=== PATIENT | male | born 1970 | race Two or more races ===

== ENCOUNTER 2020-03-06 07:00 | Day surgery (SDC) | payer MEDICAID, OTHER ==
[~2020-03-06 07:00] MED LIST: Acetaminophen 1,000 MG in Premix Bag 1 BAG IV ONE; Lactated Ringers 1,000 ML IV SCH; Pregabalin 75 MG Cap PO ONE; Sodium Chloride 0.9% 1,000 ML IV SCH; ceFAZolin 2 GM in Premix Bag 1 BAG IV ONE
[2020-03-06] MEDS ORDERED: Propofol 200 MG/20 ML SDV ONE ×2 (07:20→09:02)
[2020-03-06] MEDS ORDERED: fentaNYL 100 MCG/2 ML SDV ONE ×2 (07:20→07:26)
[2020-03-06] MEDS ORDERED: Ondansetron 4 MG/2 ML SDV ONE (07:20)
[2020-03-06] MEDS ORDERED: Midazolam 1 MG/ML 2 ML SDV ONE (07:20)
[2020-03-06] MEDS ORDERED: Succinylcholine/Sod PF 100 MG/5 ML SYRINGE IV ONE (07:22)
[2020-03-06] MEDS ORDERED: Ketorolac 30 MG/ML SDV ONE (07:22)
[2020-03-06] MEDS ORDERED: Glycopyrrolate 0.2 MG/ML SDV ONE (07:22)
[2020-03-06] MEDS ORDERED: Dexamethasone 4 MG/ML 5 ML MDV ONE (07:22)
[2020-03-06] MEDS ORDERED: Bupivacaine 25%/EPINEPHrine/PF 30 ML ONE (07:24)
[2020-03-06] MEDS ORDERED: Octyl 2-Cyanoacrylate 1 Tube ONE (07:24)
--- NOTE | 2020-03-06 07:41 | PCM.PREANE ---
Preanesthetic Assessment - Anesthesia/Transfusion/Family Hx Anesthesia History: Prior Anesthesia Without Reaction Family History of Anesthesia Reaction: No Transfusion History: No Prior Transfusion(s) - Review of Systems General: No Symptoms Pulmonary: No Symptoms Cardiovascular: No Symptoms Gastrointestinal: No Symptoms Neurological: No Symptoms Other: Reports: None - Physical Assessment NPO Status Date: 03/05/20 Height: 5 ft 7 in Weight: 128.82 kg ASA Class: 3 Mental Status: Alert & Oriented x3 Dentition: Reports: Missing Tooth/Teeth ROM/Head Extension: Full Lungs: Clear to Auscultation, Normal Respiratory Effort Cardiovascular: Regular Rate, Regular Rhythm - Allergies Allergies/Adverse Reactions: Allergies Allergy/AdvReac Type Severity Reaction Status Date / Time No Known Allergies Allergy Verified 03/03/20 08:21 - Blood Blood Available: No - Anesthesia Plan Pre-Op Medication Ordered: None - Acknowledgements Anesthesia Type Planned: General Anesthesia Pt an Appropriate Candidate for the Planned Anesthesia: Yes Alternatives and Risks of Anesthesia Discussed w Pt/Guardian: Yes Pt/Guardian Understands and Agrees with Anesthesia Plan: Yes Additional Comments: PMH: MO, dm2- [id number], moy- uses cpap, gerd PLAN: ga/lma PreAnesthesia Questionnaire HEENT History: Reports: Other (See Below) Other HEENT History: wears glasses Cardiovascular History: Reports: High Cholesterol, Hypertension Respiratory History: Reports: Sleep Apnea Other Respiratory History: uses CPAP Gastrointestinal History: Reports: GERD Genitourinary History: Reports: None Musculoskeletal History: Reports: Fracture Other Musculoskeletal History: hx fx arm Neurological History: Reports: None Psychiatric History: Reports: None Endocrine/Metabolic History: Reports: Diabetes, Type II, Obesity/BMI 30+ Hematologic History: Reports: None Immunologic History: Reports: None Oncologic (Cancer) History: Reports: None Dermatologic History: Reports: None - Past Surgical History Head Surgeries/Procedures: Reports: None HEENT Surgical History: Reports: Tonsillectomy Cardiovascular Surgical History: Reports: None Respiratory Surgical History: Reports: None GI Surgical History: Reports: None Male Surgical History: Reports: None Endocrine Surgical History: Reports: None Neurological Surgical History: Reports: None Musculoskeletal Surgical History: Reports: Knee Replacement, Other (See Below) Other Musculoskeletal Surgeries/Procedures:: hx left knee arthroplasty, left knee manipulation & tendon repair right leg Oncologic Surgical History: Reports: None Dermatological Surgical History: Reports: None - SUBSTANCE USE Tobacco Use Status *Q: Current Some Day Tobacco User Tobacco Use Within Last Twelve Months: Cigarettes - HOME MEDS Home Medications: Home Meds Exenatide Microspheres [Bydureon Pen] 2 mg SUBCUT WEEKLY 03/03/20 [History] Insulin Glargine,Hum.Rec.Anlog [Evan Escuderoostar] 1 injection SUBCUT BIDMEALS 03/03/20 [History] Lansoprazole 15 mg PO BID 03/03/20 [History] Metoprolol Tartrate 25 mg PO BID 03/03/20 [History] Olmesartan Medoxomil 40 mg PO DAILY 03/03/20 [History] Pravastatin Sodium 80 mg PO DAILY 03/03/20 [History] amLODIPine Besylate [Amlodipine Besylate] 10 mg PO DAILY 03/03/20 [History] hydroCHLOROthiazide [Hydrochlorothiazide] 50 mg PO DAILY 03/03/20 [History] metFORMIN HCl [Metformin HCl] 1,000 mg PO BID 03/03/20 [History] - CURRENT (IN HOUSE) MEDS Current Meds: Current Medications Sodium Chloride (Normal Saline) 1,000 mls @ 125 mls/hr IV ASDIRECTED MANOJ Lactated Ringer's (Ringers, Lactated) 1,000 mls @ 125 mls/hr IV ASDIRECTED MANOJ Discontinued Medications Dexamethasone (Dexamethasone) Confirm Administered Dose 20 mg .ROUTE .STK-MED ONE Stop: 03/06/20 07:23 Fentanyl (Sublimaze) Confirm Administered Dose 200 mcg .ROUTE .STK-MED ONE Stop: 03/06/20 07:21 Fentanyl (Sublimaze) Confirm Administered Dose 100 mcg .ROUTE .STK-MED ONE Stop: 03/06/20 07:27 Glycopyrrolate (Robinul) Confirm Administered Dose 0.2 mg .ROUTE .STK-MED ONE Stop: 03/06/20 07:23 Cefazolin Sodium/Dextrose 2 gm (/ Premix) 50 mls @ 100 mls/hr IV ONETIME ONE Stop: 03/05/20 13:21 Acetaminophen 1,000 mg/ Premix 100 mls @ 400 mls/hr IV NOW ONE Stop: 03/06/20 07:14 Bupivacaine HCl/Epinephrine Bitart (Sensorc Mpf 0.25%-Epi [id number]) Confirm Administered Dose 30 mls @ as directed .ROUTE .STK-MED ONE Stop: 03/06/20 07:25 Ketorolac Tromethamine (Toradol) Confirm Administered Dose 30 mg .ROUTE .STK-MED ONE Stop: 03/06/20 07:23 Midazolam HCl (Versed 1 Mg/Ml) Confirm Administered Dose 2 mg .ROUTE .STK-MED ONE Stop: 03/06/20 07:21 Octyl Cyanoacrylate (Dermabond Advance) Confirm Administered Dose 1 applic .ROUTE .STK-MED ONE Stop: 03/06/20 07:25 Ondansetron HCl (Zofran) Confirm Administered Dose 4 mg .ROUTE .STK-MED ONE Stop: 03/06/20 07:21 Pregabalin (Lyrica) 150 mg PO DAILY ONE Stop: 03/06/20 07:01 Propofol (Diprivan 20 Ml) Confirm Administered Dose 400 mg .ROUTE .STK-MED ONE Stop: 03/06/20 07:21
[2020-03-06] MEDS ORDERED: Sodium Chloride 0.9% 20 ML ONE (08:40)
[2020-03-06] MEDS ORDERED: ceFAZolin 1 GM Vial ONE (08:40)
[2020-03-06] MEDS ORDERED: HYDROmorphone 2 MG/ML Syringe ONE (09:05)
[2020-03-06] MEDS ORDERED: HYDROmorphone 2 MG/ML Syringe IVPUSH ONE (10:00)
--- NOTE | 2020-03-06 10:09 | PCM.OPNOTE ---
- General Post-Op/Procedure Note Date of Surgery/Procedure: 03/06/20 Operative Procedure(s): Umbilical hernia repair Findings: umbilical hernia dictation number [id number] Pre Op Diagnosis: Umbilical hernia Post-Op Diagnosis: Umbilical hernia Primary Surgeon: Jarrod Mosley Pathology: Hernia sac EBL in mLs: 5 Complications: None Condition: Good
--- NOTE | 2020-03-06 11:16 | PCM.POSTAN ---
POST ANESTHESIA ASSESSMENT - MENTAL STATUS Mental Status: Alert, Oriented - VITAL SIGNS Vital Signs: Last Vital Signs Temp 96.8 F L 03/06/20 10:23 Pulse 83 03/06/20 10:44 Resp 15 03/06/20 10:44 BP 102/43 L 03/06/20 10:44 Pulse Ox 94 L 03/06/20 10:44 - RESPIRATORY Respiratory Status: Respiratory Rate WNL, Airway Patent, O2 Saturation Stable - CARDIOVASCULAR CV Status: Pulse Rate WNL, Blood Pressure Stable - GASTROINTESTINAL GI Status: No Symptoms - POST OP HYDRATION Hydration Status: Adequate & Stable
--- NOTE | 2020-03-06 11:16 | PCM48HPAN ---
Post Anesthesia Note - EVALUATION WITHIN 48HRS OF ANESTHETIC Vital Signs in Normal Range: Yes Patient Participated in Evaluation: Yes Respiratory Function Stable: Yes Airway Patent: Yes Cardiovascular Function Stable: Yes Hydration Status Stable: Yes Pain Control Satisfactory: Yes Nausea and Vomiting Control Satisfactory: Yes Mental Status Recovered: Yes Vital Signs: Last Vital Signs Temp 96.8 F L 03/06/20 10:23 Pulse 83 03/06/20 10:44 Resp 15 03/06/20 10:44 BP 102/43 L 03/06/20 10:44 Pulse Ox 94 L 03/06/20 10:44
--- NOTE | 2020-03-06 14:01 | OR ---
SURGEON: SADIQ SHEETS MD DATE OF PROCEDURE: 03/06/2020 PREOPERATIVE DIAGNOSIS: Umbilical hernia. POSTOPERATIVE DIAGNOSIS: Umbilical hernia. PROCEDURE PERFORMED: Open umbilical hernia repair of a reducible hernia. FINDINGS: Umbilical hernia. SPECIMEN: Hernia sac. PRIMARY SURGEON: Sadiq Sheets MD ANESTHESIA: General. ESTIMATED BLOOD LOSS: 5 mL. COMPLICATIONS: None. REASON FOR PROCEDURE: The patient is a pleasant 50-year-old gentleman who has had an umbilical hernia for quite some time, which started to bother him over the last couple of months. He denies ever being stuck. He has always been able to reduce it. I did go over the risks, goals, and alternatives of repair. Risks include, but not limited to, bleeding, infection, injury to underlying structures, mesh infection, chronic pain, scar formation. Also went over that we may or may not take his umbilicus, seroma formation, hematoma formation. The patient understands, wished to proceed. OPERATIVE NARRATIVE: The patient was brought back to the OR. He was prepped and draped in usual sterile fashion. SCDs placed. Preoperative antibiotics were given and anesthesia was provided by the Anesthesia team. Time-out was performed. A curvilinear infraumbilical incision was made. It was made down to the fascia. The hernia sac was then dissected away. Now, the hernia sac was dissected off the umbilical stalk. The hernia sac was then entered, it appeared just to be fat. This was easily reduced back into the abdomen. Now, the hernia sac was resected off where it met with the fascia. His actual defect was small, only about 1.5 to 2 cm in size. The area was inspected. There was good hemostasis. Now, a medium-sized Bard Ventralex ST mesh was placed. It laid nicely underneath the fascia. Now, it was secured in place with 0 Prolene sutures in a U-stitch fashion. The fascia was then closed with two [id number] stitches with 0 prolene. Again, good hemostasis. Now, the fascia and subcutaneous tissue were injected with local. The umbilical stalk was brought back. The umbilical skin actually appeared fairly viable, so the umbilical stalk was then attached to the fascia with 3-0 PDS. The incision was closed with a layer of 3-0 Vicryl and then the skin was closed with 4-0 Monocryl and Dermabond. At the end of the case, sponge and needle counts were correct, and the patient was transferred to recovery room in stable condition. GAL REID /[id number]
== END 2020-03-06 12:00 | disposition home or self-care (01) ==
LOC: MW.SDS 07:00
PROVIDERS: ATTEND Surgery
DX: K42.9 Umbilical hernia without obstruction or gangrene (principal); E11.9 Type 2 diabetes mellitus without complications; I10 Essential (primary) hypertension; G47.33 Obstructive sleep apnea (adult) (pediatric); K21.9 Gastro-esophageal reflux disease without esophagitis; E78.00 Pure hypercholesterolemia, unspecified; E66.9 Obesity, unspecified; F17.210 Nicotine dependence, cigarettes, uncomplicated; Z79.899 Other long term (current) drug therapy; Z98.890 Other specified postprocedural states; Z79.4 Long term (current) use of insulin; Z68.41 Body mass index [BMI] 40.0-44.9, adult
CPT/HCPCS: 82962; A9270-GY; J0131; J0330; J0690; J1100; J1170; J1885; J2250; J2405; J2704; J3010; J3490; J7120

== ENCOUNTER 2020-05-01 08:00 | Day surgery (SDC) | payer MEDICAID ==
[~2020-05-01 08:00] MED LIST changes: -Acetaminophen 1,000 MG in Premix Bag 1 BAG IV ONE; +Glycopyrrolate 0.2 MG/ML SDV ONE; +Lidocaine 2% 5 ML SDV ONE; +Midazolam 1 MG/ML 2 ML SDV ONE; -Pregabalin 75 MG Cap PO ONE; +Propofol 200 MG/20 ML SDV ONE; -Sodium Chloride 0.9% 1,000 ML IV SCH; -ceFAZolin 2 GM in Premix Bag 1 BAG IV ONE
--- NOTE | 2020-05-01 08:50 | PCM.PREANE ---
Preanesthetic Assessment - Anesthesia/Transfusion/Family Hx Anesthesia History: Prior Anesthesia Without Reaction Family History of Anesthesia Reaction: No Transfusion History: No Prior Transfusion(s) Intubation History: Unknown - Review of Systems General: No Symptoms Pulmonary: No Symptoms Cardiovascular: No Symptoms Gastrointestinal: Hematochezia, Other (chronic acid reflux) Neurological: No Symptoms Other: Reports: None - Physical Assessment Vital Signs: Last Vital Signs Temp 35.7 C L 05/01/20 08:23 Pulse 86 05/01/20 08:23 Resp 16 05/01/20 08:23 BP 112/59 L 05/01/20 08:23 Pulse Ox 95 05/01/20 08:23 Height: 5 ft 7 in Weight: 120.202 kg ASA Class: 3 Mental Status: Alert & Oriented x3 Airway Class: Mallampati = 3 Dentition: Reports: Normal Dentition, Bridge (1 tooth flipper up front (removed)) Thyro-Mental Finger Breadths: 3 Mouth Opening Finger Breadths: 3 ROM/Head Extension: Full Lungs: Clear to Auscultation, Normal Respiratory Effort Cardiovascular: Regular Rate, Regular Rhythm - Allergies Allergies/Adverse Reactions: Allergies Allergy/AdvReac Type Severity Reaction Status Date / Time No Known Allergies Allergy Verified 04/25/20 14:17 - Blood Blood Available: No - Anesthesia Plan Pre-Op Medication Ordered: None - Acknowledgements Anesthesia Type Planned: MAC Pt an Appropriate Candidate for the Planned Anesthesia: Yes Alternatives and Risks of Anesthesia Discussed w Pt/Guardian: Yes Pt/Guardian Understands and Agrees with Anesthesia Plan: Yes PreAnesthesia Questionnaire HEENT History: Reports: Other (See Below) Other HEENT History: wears glasses Cardiovascular History: Reports: High Cholesterol, Hypertension Respiratory History: Reports: Sleep Apnea Other Respiratory History: uses CPAP Gastrointestinal History: Reports: GERD Genitourinary History: Reports: None Musculoskeletal History: Reports: Fracture, Osteoarthritis Other Musculoskeletal History: hx fx arm Neurological History: Reports: None Psychiatric History: Reports: None Endocrine/Metabolic History: Reports: Diabetes, Type II, IDDM, Obesity/BMI 30+ (BMI 41.5) Hematologic History: Reports: None Immunologic History: Reports: None Oncologic (Cancer) History: Reports: None Dermatologic History: Reports: None - Past Surgical History Head Surgeries/Procedures: Reports: None HEENT Surgical History: Reports: Tonsillectomy Cardiovascular Surgical History: Reports: None Respiratory Surgical History: Reports: None GI Surgical History: Reports: Hernia, Abdominal (umbilical 2 months ago here) Other GI Surgeries/Procedures: Umbilical hernia repair Male Surgical History: Reports: None Endocrine Surgical History: Reports: None Neurological Surgical History: Reports: None Musculoskeletal Surgical History: Reports: Knee Replacement, Other (See Below) Other Musculoskeletal Surgeries/Procedures:: hx left knee arthroplasty 04/19, left knee manipulation & tendon repair right leg Oncologic Surgical History: Reports: None Dermatological Surgical History: Reports: None - SUBSTANCE USE Tobacco Use Status *Q: Never Tobacco User Recreational Drug Use History: No - HOME MEDS Home Medications: Home Meds Exenatide Microspheres [Bydureon Pen] 2 mg SUBCUT WEEKLY 03/03/20 [History] Lansoprazole 15 mg PO QAM 03/03/20 [History] Metoprolol Tartrate 25 mg PO BID 03/03/20 [History] Olmesartan Medoxomil 40 mg PO QAM 03/03/20 [History] Pravastatin Sodium 80 mg PO DAILY 03/03/20 [History] amLODIPine Besylate [Amlodipine Besylate] 10 mg PO QAM 03/03/20 [History] hydroCHLOROthiazide [Hydrochlorothiazide] 50 mg PO DAILY 03/03/20 [History] metFORMIN HCl [Metformin HCl] 500 mg PO BID 03/03/20 [History] Insulin Glargine,Hum.Rec.Anlog [Lantus Solostar] 0 unit SQ BID 04/25/20 [History] - CURRENT (IN HOUSE) MEDS Current Meds: Current Medications Lactated Ringer's (Ringers, Lactated) 1,000 mls @ 125 mls/hr IV ASDIRECTED [facility] Last Admin: 05/01/20 08:31 Dose: 125 mls/hr Documented by: Discontinued Medications Glycopyrrolate (Robinul) Confirm Administered Dose 0.2 mg .ROUTE .STK-MED ONE Stop: 05/01/20 07:25 Lidocaine (Xylocaine-Mpf 2%) Confirm Administered Dose 5 ml .ROUTE .STK-MED ONE Stop: 05/01/20 07:25 Midazolam HCl (Versed 1 Mg/Ml) Confirm Administered Dose 2 mg .ROUTE .STK-MED ONE Stop: 05/01/20 07:25 Propofol (Diprivan 20 Ml) Confirm Administered Dose 600 mg .ROUTE .STK-MED ONE Stop: 05/01/20 07:25
[2020-05-01] MEDS ORDERED: Propofol 200 MG/20 ML SDV ONE (10:02)
--- NOTE | 2020-05-01 10:28 | PCM.OPNOTE ---
- General Post-Op/Procedure Note Date of Surgery/Procedure: 05/01/20 Operative Procedure(s): EGD with biopsies. Colonoscopy with biopsies Findings: Normal appearing EGD and colonoscopy Diverticulosis dictation number [id number] Pre Op Diagnosis: History of colitis of CT. GERD Post-Op Diagnosis: Normal appearing colon and EGD Primary Surgeon: Jarrod Mosley Pathology: random biopsies of the colon biopsies from the EGD. Complications: None Condition: Good
--- NOTE | 2020-05-01 10:48 | PCM.POSTAN ---
POST ANESTHESIA ASSESSMENT - MENTAL STATUS Mental Status: Alert, Oriented - VITAL SIGNS Vital Signs: Last Vital Signs Temp 35.7 C L 05/01/20 08:23 Pulse 83 05/01/20 10:42 Resp 16 05/01/20 10:42 BP 97/58 L 05/01/20 10:42 Pulse Ox 95 05/01/20 10:42 - RESPIRATORY Respiratory Status: Respiratory Rate WNL, Airway Patent, O2 Saturation Stable - CARDIOVASCULAR CV Status: Pulse Rate WNL, Blood Pressure Stable - GASTROINTESTINAL GI Status: No Symptoms - PAIN Pain Score: 0 - POST OP HYDRATION Hydration Status: Adequate & Stable - OBSERVATIONS Free Text/Narrative:: No anesthesia problems
--- NOTE | 2020-05-01 10:59 | PCM48HPAN ---
Post Anesthesia Note - EVALUATION WITHIN 48HRS OF ANESTHETIC Vital Signs in Normal Range: Yes Patient Participated in Evaluation: Yes Respiratory Function Stable: Yes Airway Patent: Yes Cardiovascular Function Stable: Yes Hydration Status Stable: Yes Pain Control Satisfactory: Yes Nausea and Vomiting Control Satisfactory: Yes Mental Status Recovered: Yes Vital Signs: Last Vital Signs Temp 36.3 C 05/01/20 10:47 Pulse 80 05/01/20 10:47 Resp 14 05/01/20 10:47 BP 107/60 05/01/20 10:47 Pulse Ox 95 05/01/20 10:47 - COMMENTS/OBSERVATIONS Free Text/Narrative:: No anesthesia problems
--- NOTE | 2020-05-01 14:09 | OR ---
SURGEON: SADIQ SHEETS MD DATE OF PROCEDURE: 05/01/2020 PREOPERATIVE DIAGNOSES: 1. Screening colonoscopy, but he does have history of colitis and gastritis on a CT scan several months ago. 2. Gastroesophageal reflux disease. POSTOPERATIVE DIAGNOSIS: Normal-appearing colon and esophagogastroduodenoscopy. PRIMARY SURGEON: Sadiq Sheets MD ANESTHESIA: General anesthesia. EXTENT OF COLONOSCOPY: To the cecum. WITHDRAWAL TIME: 9 minutes. LIMITATIONS: None. BOWEL PREP: Very good. PROCEDURES PERFORMED: 1. Esophagogastroduodenoscopy with biopsies. 2. Colonoscopy with random biopsies. REASON FOR PROCEDURE: The patient is a pleasant 50-year-old gentleman who has never had a colonoscopy before. He does have a family history of colon cancer. Several months ago in [place], he had a CT scan that showed some colitis and gastritis. The patient also has a history of GERD, which he says is well controlled with medication. He denies any swallowing issues. PROCEDURE IN DETAIL: Physical exam was performed. The major risks and benefits associated with the procedure were explained to the patient in detail. The patient verbalized understanding and agreement of the same. The patient was then connected to appropriate monitoring device and IV was started. EKG, pulse, pulse oximetry, blood pressure, and capnography were monitored throughout the procedure. Continuous oxygen and sedation were provided by the anesthesiologist. Sedation was began, and after adequate sedation was achieved, an upper endoscope was advanced under direct visualization without any difficulty in the upper GI tract. The anatomy and mucosa of the esophagus, GE junction, stomach, and at least the second part of the duodenum were all inspected. Duodenum appeared normal. Stomach also appeared normal with both retro and antegrade views. I did do biopsies of the antrum and pylorus to check for H pylori. Scope was brought to the GE junction. GE junction was approximately 37 cm from incisor. Squamocolumnar junction line appeared intact. Scope was brought into the stomach and stomach was desufflated. Scope was brought into the esophagus. Esophagus also appeared normal. The scope was removed and this part of the procedure was terminated. Gloves and scopes were changed. The patient was rotated to left lateral decubitus position. Now, a digital rectal exam was performed. No rectal masses or polyps were felt. Now, a well- lubricated Olympus colonoscope was entered in the rectum and advanced under direct visualization to the level of the cecum. Cecum was identified by both visual and anatomic landmarks. Photographs were taken of the cecal cap. Scope was then slowly withdrawn in somewhat circular fashion looking at the color, texture, anatomy, and integrity of the mucosa from the cecum to the anal canal. The patient did have liquid stool, which was suctioned and irrigated out for great look at the mucosa. The patient did have some scant diverticulosis through his sigmoid colon. Because of his history of colitis seen on CT scan several months ago, did do random biopsies through the colon. The scope was retroflexed in the rectum. Scope was completely removed and the procedure was terminated. ENDOSCOPIC DIAGNOSIS: Normal-appearing esophagogastroduodenoscopy and colon with some diverticulosis. RECOMMENDATIONS: Followup colonoscopy will depend on pathology, but most likely will need another colonoscopy in 10 years, sooner if he develops signs or symptoms such as change in bowel habits or blood in his stool. He can follow up in the clinic to go over his pathology on his EGD. GAL / FRANKLIN /[id number]
== END 2020-05-01 11:03 | disposition home or self-care (01) ==
LOC: MW.SDS 08:00
PROVIDERS: ATTEND Surgery
DX: Z12.11 Encounter for screening for malignant neoplasm of colon (principal); K21.9 Gastro-esophageal reflux disease without esophagitis; E11.9 Type 2 diabetes mellitus without complications; I10 Essential (primary) hypertension; E78.00 Pure hypercholesterolemia, unspecified; E66.01 Morbid (severe) obesity due to excess calories; G47.30 Sleep apnea, unspecified; Z79.899 Other long term (current) drug therapy; Z79.84 Long term (current) use of oral hypoglycemic drugs; Z98.890 Other specified postprocedural states; Z68.41 Body mass index [BMI] 40.0-44.9, adult; Z80.0 Family history of malignant neoplasm of digestive organs; Z87.19 Personal history of other diseases of the digestive system
CPT/HCPCS: 43239; 45380; 82962; J2250; J2704; J3490; J7120; 00813; 88305; 88312

== ENCOUNTER 2020-05-01 17:53 | Inpatient (IN) | payer MEDICAID ==
[2020-05-01] MEDS ORDERED: Sodium Chloride 0.9% 1,000 ML IV ONE ×2 (18:32→19:17)
[2020-05-01] MEDS ORDERED: Ondansetron 4 MG/2 ML SDV IVPUSH ONE (18:36)
--- NOTE | 2020-05-01 18:47 | PCM.EKG ---
#1 Interpretation EKG Interpretation Comments: Heart rate = 126 bpm, sinus tachycardia, normal QRS interval, no STEMI. EKG and rhythm strip interpreted by me at 1821
[2020-05-01 19:05] LABS: BLOOD UREA NITROGEN,BUN 13 mg/dL (7.0-18.0); CARBON DIOXIDE,CO2 24.5 mmol/L (21.0-32.0); CHLORIDE,CL 99 mmol/L (98-107); GLUCOSE RANDOM 200 mg/dL (74-106); LIPASE 65 U/L (73-393); POTASSIUM,K 3.7 mmol/L (3.5-5.1); SODIUM,NA 137 mmol/L (136-148)
--- NOTE | 2020-05-01 19:12 | CR ---
INDICATION: tachycardia. 1 image sent prior 28-apr-2020 TECHNIQUE: Chest 1 view. COMPARISON: 04/28/20 FINDINGS: Cardiovascular and mediastinum: Heart size and vasculature are normal in caliber and appearance. Mediastinum is within normal limits. Lungs and pleural space: Lungs are clear. No sign of infiltrate or mass. No sign of pleural effusion. No pneumothorax. Bones and soft tissues: No significant findings. IMPRESSION: Unremarkable chest. Dictated by: Sd Pastor MD @ 05/01/2020 19:11:37 (Electronically Signed)
[2020-05-01] MEDS ORDERED: Piperacillin/Tazobactam 3.375 GM in Sodium Chloride 0.9% 50 ML IV ONE (19:17)
[2020-05-01] MEDS ORDERED: Vancomycin 1.5 GM in Sodium Chloride 0.9% 500 ML IV STA (19:19)
[2020-05-01] MEDS ORDERED: Piperacillin/Tazobactam 4.5 GM in Sodium Chloride 0.9% 100 ML IV ONE (19:20)
[2020-05-01 20:04] LABS: CORONAVIRUS COVID-19 NAA NEGATIVE (NEGATIVE); INFLUENZA A NAA NEGATIVE (NEGATIVE); INFLUENZA B NAA NEGATIVE (NEGATIVE)
[2020-05-01] MEDS ORDERED: VANCOmycin 1.5 GM/300 ML 300 ML IV STA (20:10)
[2020-05-01] MEDS ORDERED: Iopamidol 755 MG/ML 500 ML Multipack Bottle IVPUSH STA (20:18)
--- NOTE | 2020-05-01 20:43 | CT ---
INDICATION: Tachycardia, vomiting, fever after colonoscopy and EGD TECHNIQUE: CT abdomen and pelvis acquired with 100 cc Isovue 370 IV contrast. COMPARISON: None FINDINGS: Lower chest: Patchy airspace disease in the left lower lobe. Small hiatal hernia. No pneumomediastinum. Liver: Unremarkable. Spleen: Unremarkable. Pancreas: Unremarkable. Gallbladder and bile ducts: Cholelithiasis. Adrenal glands: 1.4 cm mass on the left adrenal gland measuring -80 Hounsfield units in density, consistent with a benign adrenal myelolipoma. Kidneys: 2 mm nonobstructive left renal stone. GI tract: No free air or free fluid. No pericolonic fat stranding. Colonic diverticulosis. Vascular structures: Unremarkable. Lymph nodes: Unremarkable. Miscellaneous: Status post umbilical herniorrhaphy with mesh placement. No free air or significant free fluid. Pelvic Organs: Unremarkable. Bones: Unremarkable for age. IMPRESSION: No evidence for acute esophageal, stomach or bowel abnormality. Left lower lobe pneumonia. Cholelithiasis. Colonic diverticulosis. Nonobstructive left renal stone. Status post umbilical herniorrhaphy with mesh placement. Please note that all CT scans at this facility use dose modulation, iterative reconstruction, and/or weight-based dosing when appropriate to reduce radiation dose to as low as reasonably achievable. Dictated by Aracelis Don MD @ May 01 2020 8:41PM Signed by Dr. Aracelis Don @ May 01 2020 8:41PM
[2020-05-01] MEDS ORDERED: Sodium Chloride 0.9% 1,000 ML IV SCH (21:00)
--- NOTE | 2020-05-01 21:42 | EDM.PDOC ---
ED HPI GENERAL MEDICAL PROBLEM - General Chief Complaint: General Stated Complaint: CHILLS Time Seen by Provider: 05/01/20 18:32 Source of Information: Reports: Patient History Limitations: Reports: No Limitations - History of Present Illness INITIAL COMMENTS - FREE TEXT/NARRATIVE: HISTORY AND PHYSICAL: History of present illness: Patient is a 50-year-old male who presents emergency room today with concern of chills, feeling feverish, feeling unwell, and a few episodes of vomiting following a colonoscopy and upper endoscopy this morning. Patient states that he had a colonoscopy and an upper endoscopy performed by Dr. Mosley, general surgery, this morning and was discharged from same-day surgery at noon. Patient states that he was excited to go eat as he has been on a colonoscopy cleanse and states that he went and ate. Patient states a few hours after eating, he began feeling nauseous and has had a few episodes of vomiting. Patient states he has began feeling feverish but states he has not checked a temperature at home. Patient states he feels as if he has the chills and states that overall he feels unwell. Patient denies any abdominal pain. Patient denies any other associated symptoms. Patient denies chest pain, shortness of breath, or cough. Denies headache, neck stiff ness, change in vision, syncope, or near syncope. Denies abdominal pain, diarrhea, constipation, or dysuria. Has not noted any blood in urine or stool. Patient has been eating and drinking appropriately to onset of symptoms. Review of systems: As per history of present illness and below otherwise all systems reviewed and negative. Past medical history: As per history of present illness and as reviewed below otherwise noncontributory. Surgical history: As per history of present illness and as reviewed below otherwise noncontributory. Social history: See social history for further information Family history: As per history of present illness and as reviewed below otherwise noncontributory. Physical exam: General: Patient is alert, oriented, and in no acute distress. Patient laying comfortably on exam table. Tachycardic 135 on initial exam, otherwise vitally s table. HEENT: Atraumatic, normocephalic, pupils equal and reactive bilaterally, negative for conjunctival pallor or scleral icterus, mucous membranes moist, TMs normal bilaterally, throat clear, neck supple, nontender, trachea midline. No drooling or trismus noted. No meningeal signs. No hot potato voice noted. Lungs: Clear to auscultation, breath sounds equal bilaterally, chest nontender. Heart: S1S2, regular rate and rhythm without overt murmur Abdomen: Soft, nondistended, nontender. Negative for masses or hepatosplenomegaly. Negative for costovertebral tenderness. Pelvis: Stable nontender. Genitourinary: Deferred. Rectal: Deferred. Skin: Intact, warm, dry. No lesions or rashes noted. Extremities: Atraumatic, negative for cords or calf pain. Neurovascular unremarkable. Neuro: Awake, alert, oriented. Cranial nerves II through XII unremarkable. Cerebellum unremarkable. Motor and sensory unremarkable throughout. Exam nonfocal. Notes: On initial exam, patient is tachycardic 135 on exam. This does appear to be a sinus tachycardia. See Dr. Blanc's dictation for specific EKG interpretation. No STEMI. We will perform routine lab work as well as cardiac lab evaluation. We will get an abdominal pelvic CT scan due to colonoscopy performed this morning, with perforation concerns. After first bolus of 1 L normal saline, patient's heart rate is now 115. On CBC, patient's white count is elevated at 25, along with patient's elevated heart rate, I am concerned for sepsis. Unasyn and vancomycin initiated. After second bolus of an additional 1 L normal saline, patient's heart rate is n ow 105. Patient does have a left lower lobe pneumonia on imaging. I did call and speak to the hospitalist on-call, Dr. Liu, and thoroughly discussed patient's case. Will admit to inpatient on telemetry. Voices understanding and is agreeable to plan of care. Denies any further questions or concerns at this time. Patient remains vitally stable in the ED. Diagnostics: EKG, CBC, CMP, UA, chest x-ray, troponin, Covid/influenza, abdominal pelvic CT scan with contrast, blood cultures, lactate Therapeutics: Saline, Zosyn, vancomycin, Zofran Impression: Community-acquired pneumonia, left lower lobe Sepsis Plan: We will admit inpatient to Dr. Liu on telemetry Definitive disposition and diagnosis as appropriate pending reevaluation and review of above. head Pain Score (Numeric/FACES): 8 - Related Data Allergies Allergy/AdvReac Type Severity Reaction Status Date / Time No Known Allergies Allergy Verified 05/01/20 18:15 Home Meds: Home Meds Exenatide Microspheres [Bydureon Pen] 2 mg SUBCUT WEEKLY 03/03/20 [History] Lansoprazole 15 mg PO QAM 03/03/20 [History] Metoprolol Tartrate 25 mg PO BID 03/03/20 [History] Olmesartan Medoxomil 40 mg PO QAM 03/03/20 [History] Pravastatin Sodium 80 mg PO DAILY 03/03/20 [History] amLODIPine Besylate [Amlodipine Besylate] 10 mg PO QAM 03/03/20 [History] hydroCHLOROthiazide [Hydrochlorothiazide] 50 mg PO DAILY 03/03/20 [History] metFORMIN HCl [Metformin HCl] 500 mg PO BID 03/03/20 [History] Insulin Glargine,Hum.Rec.Anlog [Lantus Solostar] 0 unit SQ BID 04/25/20 [History] Past Medical History HEENT History: Reports: Other (See Below) Other HEENT History: wears glasses Cardiovascular History: Reports: High Cholesterol, Hypertension Respiratory History: Reports: Sleep Apnea Other Respiratory History: uses CPAP Gastrointestinal History: Reports: GERD Genitourinary History: Reports: None Musculoskeletal History: Reports: Fracture, Osteoarthritis Other Musculoskeletal History: hx fx arm Neurological History: Reports: None Psychiatric History: Reports: None Endocrine/Metabolic History: Reports: Diabetes, Type II, IDDM, Obesity/BMI 30+ Hematologic History: Reports: None Immunologic History: Reports: None Oncologic (Cancer) History: Reports: None Dermatologic History: Reports: None - Infectious Disease History Infectious Disease History: Reports: Chicken Pox - Past Surgical History Head Surgeries/Procedures: Reports: None HEENT Surgical History: Reports: Tonsillectomy Cardiovascular Surgical History: Reports: None Respiratory Surgical History: Reports: None GI Surgical History: Reports: Hernia, Abdominal Other GI Surgeries/Procedures: Umbilical hernia repair Male Surgical History: Reports: None Endocrine Surgical History: Reports: None Neurological Surgical History: Reports: None Musculoskeletal Surgical History: Reports: Knee Replacement, Other (See Below) Other Musculoskeletal Surgeries/Procedures:: hx left knee arthroplasty 04/19, left knee manipulation & tendon repair right leg Oncologic Surgical History: Reports: None Dermatological Surgical History: Reports: None ED ROS GENERAL - Review of Systems Review Of Systems: Comprehensive ROS is negative, except as noted in HPI. ED EXAM, GENERAL - Physical Exam Exam: See Below (See dictation) Course - Vital Signs Last Recorded V/S: Last Vital Signs Temp 98.4 F 05/01/20 21:39 Pulse 95 05/01/20 21:39 Resp 16 05/01/20 21:39 BP 94/59 L 05/01/20 21:39 Pulse Ox 99 05/01/20 21:39 - Orders/Labs/Meds Orders: Active Orders 24 hr Category Date Time Status CULTURE BLOOD [BC] Stat Lab 05/01/20 19:49 Received CULTURE BLOOD [BC] Stat Lab 05/01/20 19:54 Received Blood Culture x2 Reflex Set [OM.PC] Stat Oth 05/01/20 19:14 Ordered Medication Orders Sodium Chloride (Normal Saline) 1,000 mls @ 125 mls/hr IV STAT MANOJ Last Admin: 05/01/20 21:36 Dose: 125 mls/hr Documented by: BRAULIO Labs: Laboratory Tests 05/01/20 05/01/20 05/01/20 Range/Units 18:22 18:34 18:34 WBC 25.50 H (4.0-11.0) K/uL RBC 4.60 (4.50-5.90) M/uL Hgb 14.2 (13.0-17.0) g/dL Hct 41.0 (38.0-50.0) % MCV 89.1 (80.0-98.0) fL MCH 30.9 (27.0-32.0) pg MCHC 34.6 (31.0-37.0) g/dL RDW Std Deviation 44.6 (28.0-62.0) fl RDW Coeff of Len 14 (11.0-15.0) % Plt Count 299 (150-400) K/uL MPV 10.70 (7.40-12.00) fL Neut % (Auto) 87.1 H (48.0-80.0) % Lymph % (Auto) 6.6 L (16.0-40.0) % [place] % (Auto) 5.9 (0.0-15.0) % Eos % (Auto) 0.3 (0.0-7.0) % Baso % (Auto) 0.1 (0.0-1.5) % Neut # (Auto) 22.2 H (1.4-5.7) K/uL Lymph # (Auto) 1.7 (0.6-2.4) K/uL [place] # (Auto) 1.5 H (0.0-0.8) K/uL Eos # (Auto) 0.1 (0.0-0.7) K/uL Baso # (Auto) 0.0 (0.0-0.1) K/uL Nucleated RBC % 0.0 /100WBC Nucleated RBCs # 0 K/uL Lactate (0.20-2.00) mmol/L Sodium 137 (136-148) mmol/L Potassium 3.7 (3.5-5.1) mmol/L Chloride 99 (98-107) mmol/L Carbon Dioxide 24.5 (21.0-32.0) mmol/L BUN 13 (7.0-18.0) mg/dL Creatinine 1.3 (0.8-1.3) mg/dL Est Cr Clr Drug Dosing 58.48 mL/min Estimated GFR (MDRD) 58.2 ml/min Glucose 200 H (74-106) mg/dL POC Glucose 179 H (60-110) mg/dL Calcium 9.2 (8.5-10.1) mg/dL Total Bilirubin 0.4 (0.2-1.0) mg/dL AST 20 (15-37) IU/L ALT 51 (14-63) IU/L Alkaline Phosphatase 67 (46-116) U/L Troponin I < 0.050 (0.000-0.056) ng/mL Total Protein 7.9 (6.4-8.2) g/dL Albumin 3.7 (3.4-5.0) g/dL Globulin 4.2 H (2.6-4.0) g/dL Albumin/Globulin Ratio 0.9 (0.9-1.6) Lipase 65 L (73-393) U/L Urine Color Urine Appearance Urine pH (5.0-8.0) Ur Specific [place] (1.001-1.035) Urine Protein (NEGATIVE) mg/dL Urine Glucose (UA) (NEGATIVE) mg/dL Urine Ketones (NEGATIVE) mg/dL Urine Occult Blood (NEGATIVE) Urine Nitrite (NEGATIVE) Urine Bilirubin (NEGATIVE) Urine Urobilinogen (<2.0) EU/dL Ur Leukocyte Esterase (NEGATIVE) Influenza Type A RNA (NEGATIVE) Influenza Type B RNA (NEGATIVE) SARS-CoV-2 RNA ([place]) (NEGATIVE) 05/01/20 05/01/20 05/01/20 Range/Units 19:14 19:54 20:43 WBC (4.0-11.0) K/uL RBC (4.50-5.90) M/uL Hgb (13.0-17.0) g/dL Hct (38.0-50.0) % MCV (80.0-98.0) fL MCH (27.0-32.0) pg MCHC (31.0-37.0) g/dL RDW Std Deviation (28.0-62.0) fl RDW Coeff of Len (11.0-15.0) % Plt Count (150-400) K/uL MPV (7.40-12.00) fL Neut % (Auto) (48.0-80.0) % Lymph % (Auto) (16.0-40.0) % [place] % (Auto) (0.0-15.0) % Eos % (Auto) (0.0-7.0) % Baso % (Auto) (0.0-1.5) % Neut # (Auto) (1.4-5.7) K/uL Lymph # (Auto) (0.6-2.4) K/uL [place] # (Auto) (0.0-0.8) K/uL Eos # (Auto) (0.0-0.7) K/uL Baso # (Auto) (0.0-0.1) K/uL Nucleated RBC % /100WBC Nucleated RBCs # K/uL Lactate 1.7 (0.20-2.00) mmol/L Sodium (136-148) mmol/L Potassium (3.5-5.1) mmol/L Chloride (98-107) mmol/L Carbon Dioxide (21.0-32.0) mmol/L BUN (7.0-18.0) mg/dL Creatinine (0.8-1.3) mg/dL Est Cr Clr Drug Dosing mL/min Estimated GFR (MDRD) ml/min Glucose (74-106) mg/dL POC Glucose (60-110) mg/dL Calcium (8.5-10.1) mg/dL Total Bilirubin (0.2-1.0) mg/dL AST (15-37) IU/L ALT (14-63) IU/L Alkaline Phosphatase (46-116) U/L Troponin I (0.000-0.056) ng/mL Total Protein (6.4-8.2) g/dL Albumin (3.4-5.0) g/dL Globulin (2.6-4.0) g/dL Albumin/Globulin Ratio (0.9-1.6) Lipase (73-393) U/L Urine Color YELLOW Urine Appearance CLEAR Urine pH 5.5 (5.0-8.0) Ur Specific [place] <= 1.005 (1.001-1.035) Urine Protein NEGATIVE (NEGATIVE) mg/dL Urine Glucose (UA) NEGATIVE (NEGATIVE) mg/dL Urine Ketones NEGATIVE (NEGATIVE) mg/dL Urine Occult Blood NEGATIVE (NEGATIVE) Urine Nitrite NEGATIVE (NEGATIVE) Urine Bilirubin NEGATIVE (NEGATIVE) Urine Urobilinogen 0.2 (<2.0) EU/dL Ur Leukocyte Esterase NEGATIVE (NEGATIVE) Influenza Type A RNA NEGATIVE (NEGATIVE) Influenza Type B RNA NEGATIVE (NEGATIVE) SARS-CoV-2 RNA ([place]) NEGATIVE (NEGATIVE) 05/01/20 Range/Units 20:51 WBC (4.0-11.0) K/uL RBC (4.50-5.90) M/uL Hgb (13.0-17.0) g/dL Hct (38.0-50.0) % MCV (80.0-98.0) fL MCH (27.0-32.0) pg MCHC (31.0-37.0) g/dL RDW Std Deviation (28.0-62.0) fl RDW Coeff of Len (11.0-15.0) % Plt Count (150-400) K/uL MPV (7.40-12.00) fL Neut % (Auto) (48.0-80.0) % Lymph % (Auto) (16.0-40.0) % [place] % (Auto) (0.0-15.0) % Eos % (Auto) (0.0-7.0) % Baso % (Auto) (0.0-1.5) % Neut # (Auto) (1.4-5.7) K/uL Lymph # (Auto) (0.6-2.4) K/uL [place] # (Auto) (0.0-0.8) K/uL Eos # (Auto) (0.0-0.7) K/uL Baso # (Auto) (0.0-0.1) K/uL Nucleated RBC % /100WBC Nucleated RBCs # K/uL Lactate (0.20-2.00) mmol/L Sodium (136-148) mmol/L Potassium (3.5-5.1) mmol/L Chloride (98-107) mmol/L Carbon Dioxide (21.0-32.0) mmol/L BUN (7.0-18.0) mg/dL Creatinine (0.8-1.3) mg/dL Est Cr Clr Drug Dosing mL/min Estimated GFR (MDRD) ml/min Glucose (74-106) mg/dL POC Glucose 119 H (60-110) mg/dL Calcium (8.5-10.1) mg/dL Total Bilirubin (0.2-1.0) mg/dL AST (15-37) IU/L ALT (14-63) IU/L Alkaline Phosphatase (46-116) U/L Troponin I (0.000-0.056) ng/mL Total Protein (6.4-8.2) g/dL Albumin (3.4-5.0) g/dL Globulin (2.6-4.0) g/dL Albumin/Globulin Ratio (0.9-1.6) Lipase (73-393) U/L Urine Color Urine Appearance Urine pH (5.0-8.0) Ur Specific [place] (1.001-1.035) Urine Protein (NEGATIVE) mg/dL Urine Glucose (UA) (NEGATIVE) mg/dL Urine Ketones (NEGATIVE) mg/dL Urine Occult Blood (NEGATIVE) Urine Nitrite (NEGATIVE) Urine Bilirubin (NEGATIVE) Urine Urobilinogen (<2.0) EU/dL Ur Leukocyte Esterase (NEGATIVE) Influenza Type A RNA (NEGATIVE) Influenza Type B RNA (NEGATIVE) SARS-CoV-2 RNA ([place]) (NEGATIVE) Meds: Medications Generic Name Dose Route Start Last Admin Trade Name Freq PRN Reason Stop Dose Admin Sodium Chloride 1,000 mls @ 125 mls/hr 05/01/20 21:00 05/01/20 21:36 Normal Saline IV 125 mls/hr STAT MANOJ Administration Discontinued Medications Generic Name Dose Route Start Last Admin Trade Name V[place]ie PRN Reason Stop Dose Admin Sodium Chloride 1,000 mls @ 999 mls/hr 05/01/20 18:32 05/01/20 18:37 Normal Saline IV 05/01/20 19:32 999 mls/hr BOLUS ONE Administration Sodium Chloride 1,000 mls @ 999 mls/hr 05/01/20 19:17 05/01/20 19:51 Normal Saline IV 05/01/20 20:17 999 mls/hr STAT ONE Administration Piperacillin Sod/Tazobactam 50 mls @ 100 mls/hr 05/01/20 19:17 05/01/20 19:26 Sod 3.375 gm/ Sodium Chloride IV 05/01/20 19:46 Not Given ONETIME ONE Vancomycin HCl 1.5 gm/ Sodium 500 mls @ 333 mls/hr 05/01/20 19:19 05/01/20 20:15 Chloride IV 05/01/20 20:49 Not Given NOW STA Piperacillin Sod/Tazobactam 100 mls @ 100 mls/hr 05/01/20 19:20 05/01/20 19:51 Sod 4.5 gm/ Sodium Chloride IV 05/01/20 20:19 100 mls/hr ONETIME ONE Administration Vancomycin HCl 300 mls @ 199.815 mls/hr 05/01/20 20:10 05/01/20 20:51 Vancomycin 1.5 Gm/300 Ml IV 05/01/20 21:40 199.815 mls/hr NOW STA Administration Iopamidol 100 ml 05/01/20 20:18 05/01/20 20:19 Isovue Multipack-370 (76%) IVPUSH 05/01/20 20:19 100 ml ONETIME STA Administration Ondansetron HCl 4 mg 05/01/20 18:36 05/01/20 19:09 Zofran IVPUSH 05/01/20 18:37 4 mg ONETIME ONE Administration Departure - Departure Time of Disposition: 21:41 Disposition: Admitted As Inpatient 66 Clinical Impression: Community acquired pneumonia Qualifiers: Laterality: left Lung location: lower lobe of lung Qualified Code(s): J18.9 - Pneumonia, unspecified organism Sepsis Qualifiers: Sepsis type: sepsis due to unspecified organism Sepsis acute organ dysfunction status: without acute organ dysfunction Qualified Code(s): A41.9 - Sepsis, unspecified organism - Discharge Information Sepsis Event Note (ED) - Evaluation Sepsis Screening Result: No Definite Risk - Focused Exam Vital Signs: Vital Signs Temp Pulse Resp BP Pulse Ox 05/01/20 20:15 105 H 16 108/57 L 93 L 05/01/20 19:11 112 H 16 121/66 94 L 05/01/20 18:16 98.8 F 134 H 18 122/70 95 - My Orders Last 24 Hours: My Active Orders 05/01/20 19:14 Blood Culture x2 Reflex Set [OM.PC] Stat 05/01/20 19:49 CULTURE BLOOD [BC] Stat 05/01/20 19:54 CULTURE BLOOD [BC] Stat - Assessment/Plan Last 24 Hours: My Active Orders 05/01/20 19:14 Blood Culture x2 Reflex Set [OM.PC] Stat 05/01/20 19:49 CULTURE BLOOD [BC] Stat 05/01/20 19:54 CULTURE BLOOD [BC] Stat
[2020-05-01] MEDS ORDERED: Ondansetron 4 MG/2 ML SDV IVPUSH PRN (22:19)
[2020-05-01] MEDS ORDERED: Albuterol/Ipratropium 3.0-0.5 MG/3 ML Neb Soln NEB PRN (22:19)
[2020-05-01] MEDS ORDERED: Lactated Ringers 1,000 ML IV ONE (22:23)
--- NOTE | 2020-05-01 22:33 | PCM.HP.2 ---
H&P History of Present Illness - General Date of Service: 05/01/20 Admit Problem/Dx: Admission Diagnosis/Problem Admission Diagnosis/Problem Pneumonia - History of Present Illness Initial Comments - Free Text/Narative: Patient is a 50-year-old male with PMH of HTN, HLD, sleep apnea, GERD, DM-II who presents emergency room today with concern of chills, subjective fevers, N/V and feeling unwell generally., Patient states that he underwent uneventful colonoscopy and upper endoscopy this morning performed by Dr. Mosley, general surgery, and was discharged from same-day surgery at noon. Patient states that he went home and ate and soon after that he began feeling nauseous and has had a few episodes of vomiting, he felt some chills and feverish although he never checked him temperature. Patient states he feels as if he has the chills and states that overall he feels unwell. Patient denies any abdominal pain. Patient denies any other associated symptoms. In the ER patient was tachycardiac and had significant leucocytosis, CXR was unremarkable, CT abdomen showed no acute GI pathology but showed left lower lobe PNA. Patient was admitted for sepsis secondary to LLL PNA head Pain Score (Numeric/FACES): 8 - Related Data Allergies/Adverse Reactions: Allergies Allergy/AdvReac Type Severity Reaction Status Date / Time No Known Allergies Allergy Verified 05/01/20 18:15 Home Medications: Home Meds Exenatide Microspheres [Bydureon Pen] 2 mg SUBCUT WEEKLY 03/03/20 [History] Lansoprazole 15 mg PO QAM 03/03/20 [History] Metoprolol Tartrate 25 mg PO BID 03/03/20 [History] Olmesartan Medoxomil 40 mg PO QAM 03/03/20 [History] Pravastatin Sodium 80 mg PO DAILY 03/03/20 [History] amLODIPine Besylate [Amlodipine Besylate] 10 mg PO QAM 03/03/20 [History] hydroCHLOROthiazide [Hydrochlorothiazide] 50 mg PO DAILY 03/03/20 [History] metFORMIN HCl [Metformin HCl] 500 mg PO BID 03/03/20 [History] Insulin Glargine,Hum.Rec.Anlog [Lantus Solostar] 0 unit SQ BID 04/25/20 [History] Past Medical History HEENT History: Reports: Other (See Below) Other HEENT History: wears glasses Cardiovascular History: Reports: High Cholesterol, Hypertension Respiratory History: Reports: Sleep Apnea Other Respiratory History: uses CPAP Gastrointestinal History: Reports: GERD Genitourinary History: Reports: None Musculoskeletal History: Reports: Fracture, Osteoarthritis Other Musculoskeletal History: hx fx arm Neurological History: Reports: None Psychiatric History: Reports: None Endocrine/Metabolic History: Reports: Diabetes, Type II, IDDM, Obesity/BMI 30+ Hematologic History: Reports: None Immunologic History: Reports: None Oncologic (Cancer) History: Reports: None Dermatologic History: Reports: None - Infectious Disease History Infectious Disease History: Reports: Chicken Pox - Past Surgical History Head Surgeries/Procedures: Reports: None HEENT Surgical History: Reports: Tonsillectomy Cardiovascular Surgical History: Reports: None Respiratory Surgical History: Reports: None GI Surgical History: Reports: Hernia, Abdominal Other GI Surgeries/Procedures: Umbilical hernia repair Male Surgical History: Reports: None Endocrine Surgical History: Reports: None Neurological Surgical History: Reports: None Musculoskeletal Surgical History: Reports: Knee Replacement, Other (See Below) Other Musculoskeletal Surgeries/Procedures:: hx left knee arthroplasty 04/19, left knee manipulation & tendon repair right leg Oncologic Surgical History: Reports: None Dermatological Surgical History: Reports: None H&P Review of Systems - Review of Systems: Review Of Systems: See Below General: Reports: Fever, Chills, Malaise, Weakness Pulmonary: Denies: Shortness of Breath, Wheezing Cardiovascular: Denies: Chest Pain, Palpitations, Dyspnea on Exertion Gastrointestinal: Reports: Anorexia, Decreased Appetite, Nausea, Vomiting. Denies: Abdominal Pain, Black Stool, Bloody Stool, Constipation Genitourinary: Denies: Dysuria, Frequency, Burning Musculoskeletal: Denies: Neck Pain, Shoulder Pain, Arm Pain Skin: Denies: Cyanosis, Jaundice, Mottled Psychiatric: Denies: Confusion, Depression, Mood Lability Neurological: Denies: Confusion, Dizziness, Headache Exam - Exam Exam: See Below - Vital Signs Vital Signs: Last Vital Signs Temp 36.9 C 05/01/20 21:39 Pulse 95 05/01/20 21:39 Resp 16 05/01/20 21:39 BP 94/59 L 05/01/20 21:39 Pulse Ox 99 05/01/20 21:39 Weight: 120.202 kg - Exam General: Alert, Oriented Neck: Supple, Trachea Midline Lungs: Clear to Auscultation, Normal Respiratory Effort Cardiovascular: Regular Rate, Regular Rhythm GI/Abdominal Exam: Normal Bowel Sounds, Soft, Non-Tender - Patient Data Lab Results Last 24 hrs: Laboratory Results - last 24 hr 05/01/20 05/01/20 05/01/20 Range/Units 18:22 18:34 18:34 WBC 25.50 H (4.0-11.0) K/uL RBC 4.60 (4.50-5.90) M/uL Hgb 14.2 (13.0-17.0) g/dL Hct 41.0 (38.0-50.0) % MCV 89.1 (80.0-98.0) fL MCH 30.9 (27.0-32.0) pg MCHC 34.6 (31.0-37.0) g/dL RDW Std Deviation 44.6 (28.0-62.0) fl RDW Coeff of Len 14 (11.0-15.0) % Plt Count 299 (150-400) K/uL MPV 10.70 (7.40-12.00) fL Neut % (Auto) 87.1 H (48.0-80.0) % Lymph % (Auto) 6.6 L (16.0-40.0) % Rolette % (Auto) 5.9 (0.0-15.0) % Eos % (Auto) 0.3 (0.0-7.0) % Baso % (Auto) 0.1 (0.0-1.5) % Neut # (Auto) 22.2 H (1.4-5.7) K/uL Lymph # (Auto) 1.7 (0.6-2.4) K/uL Rolette # (Auto) 1.5 H (0.0-0.8) K/uL Eos # (Auto) 0.1 (0.0-0.7) K/uL Baso # (Auto) 0.0 (0.0-0.1) K/uL Nucleated RBC % 0.0 /100WBC Nucleated RBCs # 0 K/uL Lactate (0.20-2.00) mmol/L Sodium 137 (136-148) mmol/L Potassium 3.7 (3.5-5.1) mmol/L Chloride 99 (98-107) mmol/L Carbon Dioxide 24.5 (21.0-32.0) mmol/L BUN 13 (7.0-18.0) mg/dL Creatinine 1.3 (0.8-1.3) mg/dL Est Cr Clr Drug Dosing 58.48 mL/min Estimated GFR (MDRD) 58.2 ml/min Glucose 200 H (74-106) mg/dL POC Glucose 179 H (60-110) mg/dL Calcium 9.2 (8.5-10.1) mg/dL Total Bilirubin 0.4 (0.2-1.0) mg/dL AST 20 (15-37) IU/L ALT 51 (14-63) IU/L Alkaline Phosphatase 67 (46-116) U/L Troponin I < 0.050 (0.000-0.056) ng/mL Total Protein 7.9 (6.4-8.2) g/dL Albumin 3.7 (3.4-5.0) g/dL Globulin 4.2 H (2.6-4.0) g/dL Albumin/Globulin Ratio 0.9 (0.9-1.6) Lipase 65 L (73-393) U/L Urine Color Urine Appearance Urine pH (5.0-8.0) Ur Specific Anderson (1.001-1.035) Urine Protein (NEGATIVE) mg/dL Urine Glucose (UA) (NEGATIVE) mg/dL Urine Ketones (NEGATIVE) mg/dL Urine Occult Blood (NEGATIVE) Urine Nitrite (NEGATIVE) Urine Bilirubin (NEGATIVE) Urine Urobilinogen (<2.0) EU/dL Ur Leukocyte Esterase (NEGATIVE) Influenza Type A RNA (NEGATIVE) Influenza Type B RNA (NEGATIVE) SARS-CoV-2 RNA (GLORIA) (NEGATIVE) 05/01/20 05/01/20 05/01/20 Range/Units 19:14 19:54 20:43 WBC (4.0-11.0) K/uL RBC (4.50-5.90) M/uL Hgb (13.0-17.0) g/dL Hct (38.0-50.0) % MCV (80.0-98.0) fL MCH (27.0-32.0) pg MCHC (31.0-37.0) g/dL RDW Std Deviation (28.0-62.0) fl RDW Coeff of Len (11.0-15.0) % Plt Count (150-400) K/uL MPV (7.40-12.00) fL Neut % (Auto) (48.0-80.0) % Lymph % (Auto) (16.0-40.0) % Rolette % (Auto) (0.0-15.0) % Eos % (Auto) (0.0-7.0) % Baso % (Auto) (0.0-1.5) % Neut # (Auto) (1.4-5.7) K/uL Lymph # (Auto) (0.6-2.4) K/uL Rolette # (Auto) (0.0-0.8) K/uL Eos # (Auto) (0.0-0.7) K/uL Baso # (Auto) (0.0-0.1) K/uL Nucleated RBC % /100WBC Nucleated RBCs # K/uL Lactate 1.7 (0.20-2.00) mmol/L Sodium (136-148) mmol/L Potassium (3.5-5.1) mmol/L Chloride (98-107) mmol/L Carbon Dioxide (21.0-32.0) mmol/L BUN (7.0-18.0) mg/dL Creatinine (0.8-1.3) mg/dL Est Cr Clr Drug Dosing mL/min Estimated GFR (MDRD) ml/min Glucose (74-106) mg/dL POC Glucose (60-110) mg/dL Calcium (8.5-10.1) mg/dL Total Bilirubin (0.2-1.0) mg/dL AST (15-37) IU/L ALT (14-63) IU/L Alkaline Phosphatase (46-116) U/L Troponin I (0.000-0.056) ng/mL Total Protein (6.4-8.2) g/dL Albumin (3.4-5.0) g/dL Globulin (2.6-4.0) g/dL Albumin/Globulin Ratio (0.9-1.6) Lipase (73-393) U/L Urine Color YELLOW Urine Appearance CLEAR Urine pH 5.5 (5.0-8.0) Ur Specific Anderson <= 1.005 (1.001-1.035) Urine Protein NEGATIVE (NEGATIVE) mg/dL Urine Glucose (UA) NEGATIVE (NEGATIVE) mg/dL Urine Ketones NEGATIVE (NEGATIVE) mg/dL Urine Occult Blood NEGATIVE (NEGATIVE) Urine Nitrite NEGATIVE (NEGATIVE) Urine Bilirubin NEGATIVE (NEGATIVE) Urine Urobilinogen 0.2 (<2.0) EU/dL Ur Leukocyte Esterase NEGATIVE (NEGATIVE) Influenza Type A RNA NEGATIVE (NEGATIVE) Influenza Type B RNA NEGATIVE (NEGATIVE) SARS-CoV-2 RNA (GLORIA) NEGATIVE (NEGATIVE) 05/01/20 Range/Units 20:51 WBC (4.0-11.0) K/uL RBC (4.50-5.90) M/uL Hgb (13.0-17.0) g/dL Hct (38.0-50.0) % MCV (80.0-98.0) fL MCH (27.0-32.0) pg MCHC (31.0-37.0) g/dL RDW Std Deviation (28.0-62.0) fl RDW Coeff of Len (11.0-15.0) % Plt Count (150-400) K/uL MPV (7.40-12.00) fL Neut % (Auto) (48.0-80.0) % Lymph % (Auto) (16.0-40.0) % Rolette % (Auto) (0.0-15.0) % Eos % (Auto) (0.0-7.0) % Baso % (Auto) (0.0-1.5) % Neut # (Auto) (1.4-5.7) K/uL Lymph # (Auto) (0.6-2.4) K/uL Rolette # (Auto) (0.0-0.8) K/uL Eos # (Auto) (0.0-0.7) K/uL Baso # (Auto) (0.0-0.1) K/uL Nucleated RBC % /100WBC Nucleated RBCs # K/uL Lactate (0.20-2.00) mmol/L Sodium (136-148) mmol/L Potassium (3.5-5.1) mmol/L Chloride (98-107) mmol/L Carbon Dioxide (21.0-32.0) mmol/L BUN (7.0-18.0) mg/dL Creatinine (0.8-1.3) mg/dL Est Cr Clr Drug Dosing mL/min Estimated GFR (MDRD) ml/min Glucose (74-106) mg/dL POC Glucose 119 H (60-110) mg/dL Calcium (8.5-10.1) mg/dL Total Bilirubin (0.2-1.0) mg/dL AST (15-37) IU/L ALT (14-63) IU/L Alkaline Phosphatase (46-116) U/L Troponin I (0.000-0.056) ng/mL Total Protein (6.4-8.2) g/dL Albumin (3.4-5.0) g/dL Globulin (2.6-4.0) g/dL Albumin/Globulin Ratio (0.9-1.6) Lipase (73-393) U/L Urine Color Urine Appearance Urine pH (5.0-8.0) Ur Specific Anderson (1.001-1.035) Urine Protein (NEGATIVE) mg/dL Urine Glucose (UA) (NEGATIVE) mg/dL Urine Ketones (NEGATIVE) mg/dL Urine Occult Blood (NEGATIVE) Urine Nitrite (NEGATIVE) Urine Bilirubin (NEGATIVE) Urine Urobilinogen (<2.0) EU/dL Ur Leukocyte Esterase (NEGATIVE) Influenza Type A RNA (NEGATIVE) Influenza Type B RNA (NEGATIVE) SARS-CoV-2 RNA (GLORIA) (NEGATIVE) Result Diagrams: 05/01/20 18:34 05/01/20 18:34 Sepsis Event Note - Evaluation Sepsis Screening Result: No Definite Risk - Focused Exam Vital Signs: Vital Signs Temp Pulse Resp BP Pulse Ox 05/01/20 21:39 36.9 C 95 16 94/59 L 99 05/01/20 20:15 105 H 16 108/57 L 93 L 05/01/20 19:11 112 H 16 121/66 94 L 05/01/20 18:16 37.1 C 134 H 18 122/70 95 - Problem List (1) HTN (hypertension) SNOMED Code(s): 93791352 ICD Code: I10 - ESSENTIAL (PRIMARY) HYPERTENSION Status: Acute Current Visit: Yes (2) HLD (hyperlipidemia) SNOMED Code(s): 38549183 ICD Code: E78.5 - HYPERLIPIDEMIA, UNSPECIFIED Status: Acute Current Visit: Yes (3) Sleep apnea SNOMED Code(s): 73122159 ICD Code: G47.30 - SLEEP APNEA, UNSPECIFIED Status: Acute Current Visit: Yes (4) Obesity SNOMED Code(s): 905114284, 359439733 ICD Code: E66.9 - OBESITY, UNSPECIFIED Status: Acute Current Visit: Yes (5) Diabetes mellitus SNOMED Code(s): 50796291 ICD Code: E11.9 - TYPE 2 DIABETES MELLITUS WITHOUT COMPLICATIONS Status: Acute Current Visit: Yes (6) GERD (gastroesophageal reflux disease) SNOMED Code(s): 541233100 ICD Code: K21.9 - GASTRO-ESOPHAGEAL REFLUX DISEASE WITHOUT ESOPHAGITIS Status: Acute Current Visit: Yes (7) Community acquired pneumonia SNOMED Code(s): 478261560 ICD Code: J18.9 - PNEUMONIA, UNSPECIFIED ORGANISM Status: Acute Current Visit: Yes Qualifiers: Laterality: left Lung location: lower lobe of lung Qualified Code(s): J18.9 - Pneumonia, unspecified organism (8) Sepsis SNOMED Code(s): 51990458 ICD Code: A41.9 - SEPSIS, UNSPECIFIED ORGANISM Status: Acute Current Visit: Yes Qualifiers: Sepsis type: sepsis due to unspecified organism Sepsis acute organ dysfunction status: without acute organ dysfunction Qualified Code(s): A41.9 - Sepsis, unspecified organism Problem List Initiated/Reviewed/Updated: Yes Orders Last 24hrs: Active Orders 24 hr Category Date Time Status Admission Status [Patient Status] [ADT] Stat ADT 05/01/20 20:55 Active Ambulate [RC] ASDIRECTED Care 05/01/20 22:19 Active Antiembolic Devices [RC] PER UNIT ROUTINE Care 05/01/20 22:19 Active Oxygen Therapy [RC] PRN Care 05/01/20 22:19 Active Pulse Oximetry [RC] PRN Care 05/01/20 22:19 Active RT Aerosol Therapy [RC] ASDIRECTED Care 05/01/20 22:20 Active VTE/DVT Education [RC] PER UNIT ROUTINE Care 05/01/20 22:19 Active Vital Signs [RC] Q4H Care 05/01/20 22:19 Active BMP [BASIC METABOLIC PANEL,BMP] [CHEM] AM Lab 05/02/20 05:11 Ordered CBC WITH AUTO DIFF [HEME] AM Lab 05/02/20 05:11 Ordered CULTURE BLOOD [BC] Stat Lab 05/01/20 19:49 Received CULTURE BLOOD [BC] Stat Lab 05/01/20 19:54 Received MAGNESIUM [CHEM] AM Lab 05/02/20 05:11 Ordered PHOSPHORUS [CHEM] AM Lab 05/02/20 05:11 Ordered Acetaminophen [TylenoL] Med 05/01/20 22:19 Active 650 mg PO Q4H PRN Albuterol/Ipratropium [DuoNeb 3.0-0.5 MG/3 ML] Med 05/01/20 22:19 Active 3 ml NEB Q4HRRT PRN Enoxaparin [Lovenox] Med 05/01/20 22:30 Ordered 40 mg SUBCUT Q24H Lactated Ringers [Ringers, Lactated] 1,000 ml Med 05/01/20 22:23 Ordered IV .BOLUS Lactated Ringers [Ringers, Lactated] 1,000 ml Med 05/01/20 22:30 Active IV ASDIRECTED Ondansetron [Zofran] Med 05/01/20 22:19 Active 4 mg IVPUSH Q4H PRN Pharmacy to Dose - Vancomycin Med 05/01/20 22:30 Ordered 1 dose .XX ASDIRECTED Piperacillin/Tazobactam [Piperacil-Tazobact] 3.375 gm Med 05/02/20 03:00 Ordered Sodium Chloride 0.9% [Normal Saline] 50 ml IV Q8H Sodium Chloride 0.9% [Normal Saline] 1,000 ml Med 05/01/20 21:00 Active IV STAT Blood Culture x2 Reflex Set [OM.PC] Stat Oth 05/01/20 19:14 Ordered Sequential Compression Device [OM.PC] Per Unit Routine Oth 05/01/20 22:19 Ordered Resuscitation Status Routine Resus Stat 05/01/20 22:19 Ordered Medication Orders Acetaminophen (Tylenol) 650 mg PO Q4H PRN PRN Reason: Pain (Mild 1-3)/fever Albuterol/Ipratropium (Duoneb 3.0-0.5 Mg/3 Ml) 3 ml NEB Q4HRRT PRN PRN Reason: Shortness Of Breath/wheezing Enoxaparin Sodium (Lovenox) 40 mg SUBCUT Q24H MANOJ Sodium Chloride (Normal Saline) 1,000 mls @ 125 mls/hr IV STAT MANOJ Last Admin: 05/01/20 21:36 Dose: 125 mls/hr Documented by: BRAULIO Lactated Ringer's (Ringers, Lactated) 1,000 mls @ 125 mls/hr IV ASDIRECTED [facility] Piperacillin Sod/Tazobactam (Sod 3.375 gm/ Sodium Chloride) 50 mls @ 100 mls/hr IV Q8H MANOJ Lactated Ringer's (Ringers, Lactated) 1,000 mls @ 999 mls/hr IV .BOLUS ONE Stop: 05/01/20 23:23 Ondansetron HCl (Zofran) 4 mg IVPUSH Q4H PRN PRN Reason: Nausea/Vomiting Vancomycin HCl (Pharmacy To Dose - Vancomycin) 1 dose .XX ASDIRECTED [facility] Assessment/Plan Comment:: 50 y/o M admitted for sepsis secondary to LLL pneumonia possible Aspiration? cont IV vancomycin and IV zosyn BP on softer side, will give another 1L bolus, cont aggressive IV fluid resuscitation f/u on blood cultures Lovenox for DVT ppx Monitor and replete electrolytes SSI Clear diet in AM
[2020-05-01] MEDS ORDERED: Glucagon,Human Recombinant 1 MG Vial IM PRN (22:38)
[2020-05-01] MEDS ORDERED: 50% Dextrose in Water 50 ML Syringe IV PRN (22:38)
[2020-05-01] MEDS: Enoxaparin 40 MG/0.4 ML Syringe SUBCUT SCH (23:08)
[2020-05-01] MEDS: Insulin Aspart 100 Units/ML 3 ML Pen SUBCUT SCH (23:09)
[2020-05-01] MEDS: Lactated Ringers 1,000 ML IV SCH (23:40)
[2020-05-02] MEDS: Piperacillin/Tazobactam 4.5 GM in Sodium Chloride 0.9% 100 ML IV SCH ×4 (03:17→22:08)
[2020-05-02] MEDS ORDERED: Piperacillin/Tazobactam 3.375 GM in Sodium Chloride 0.9% 50 ML IV SCH (04:00)
[2020-05-02] MEDS: Insulin Aspart 100 Units/ML 3 ML Pen SUBCUT SCH ×3 (04:53→17:50)
[2020-05-02] MEDS: Lactated Ringers 1,000 ML IV SCH ×4 (04:55→23:13)
[2020-05-02 05:52] LABS: BLOOD UREA NITROGEN,BUN 11 mg/dL (7.0-18.0); CARBON DIOXIDE,CO2 26.1 mmol/L (21.0-32.0); CHLORIDE,CL 106 mmol/L (98-107); GLUCOSE RANDOM 112 mg/dL (74-106); POTASSIUM,K 3.6 mmol/L (3.5-5.1); SODIUM,NA 140 mmol/L (136-148)
[2020-05-02] MEDS ORDERED: Magnesium Sulfate/Water 4 GM/100 ML BAG IV ONE (07:50)
--- NOTE | 2020-05-02 07:51 | PCM.PN ---
- General Info Date of Service: 05/02/20 Admission Dx/Problem (Free Text): Admission Diagnosis/Problem Admission Diagnosis/Problem Pneumonia Subjective Update: Feeling better today. No chest pain, or significant shortness of breath. Mild intermittent cough. reports jaw is sore, like he is bruised. No other concerns Functional Status: Reports: Pain Controlled, Tolerating Diet, Ambulating, Urinating - Review of Systems General: Reports: Malaise. Denies: Fever HEENT: Reports: Sinus Congestion, Sore Throat Pulmonary: Reports: Cough. Denies: Shortness of Breath, Sputum Cardiovascular: Reports: No Symptoms. Denies: Chest Pain Gastrointestinal: Reports: No Symptoms. Denies: Abdominal Pain, Nausea, Vomiting Genitourinary: Reports: No Symptoms. Denies: Dysuria, Frequency Musculoskeletal: Reports: No Symptoms Psychiatric: Reports: No Symptoms - Patient Data Vitals - Most Recent: Last Vital Signs Temp 97.7 F 05/02/20 04:00 Pulse 89 05/02/20 04:00 Resp 18 05/02/20 04:00 BP 117/54 L 05/02/20 04:00 Pulse Ox 95 05/02/20 04:00 Weight - Most Recent: 121.361 kg I&O - Last 24 Hours: Intake & Output 05/01/20 05/02/20 05/02/20 22:59 06:59 14:59 Intake Total 4950 Output Total 2150 Balance 2800 Lab Results Last 24 Hours: Laboratory Results - last 24 hr 05/01/20 05/01/20 05/01/20 Range/Units 18:22 18:34 18:34 WBC 25.50 H (4.0-11.0) K/uL RBC 4.60 (4.50-5.90) M/uL Hgb 14.2 (13.0-17.0) g/dL Hct 41.0 (38.0-50.0) % MCV 89.1 (80.0-98.0) fL MCH 30.9 (27.0-32.0) pg MCHC 34.6 (31.0-37.0) g/dL RDW Std Deviation 44.6 (28.0-62.0) fl RDW Coeff of Len 14 (11.0-15.0) % Plt Count 299 (150-400) K/uL MPV 10.70 (7.40-12.00) fL Neut % (Auto) 87.1 H (48.0-80.0) % Lymph % (Auto) 6.6 L (16.0-40.0) % Weber % (Auto) 5.9 (0.0-15.0) % Eos % (Auto) 0.3 (0.0-7.0) % Baso % (Auto) 0.1 (0.0-1.5) % Neut # (Auto) 22.2 H (1.4-5.7) K/uL Lymph # (Auto) 1.7 (0.6-2.4) K/uL Weber # (Auto) 1.5 H (0.0-0.8) K/uL Eos # (Auto) 0.1 (0.0-0.7) K/uL Baso # (Auto) 0.0 (0.0-0.1) K/uL Nucleated RBC % 0.0 /100WBC Nucleated RBCs # 0 K/uL Lactate (0.20-2.00) mmol/L Sodium 137 (136-148) mmol/L Potassium 3.7 (3.5-5.1) mmol/L Chloride 99 (98-107) mmol/L Carbon Dioxide 24.5 (21.0-32.0) mmol/L BUN 13 (7.0-18.0) mg/dL Creatinine 1.3 (0.8-1.3) mg/dL Est Cr Clr Drug Dosing 58.48 mL/min Estimated GFR (MDRD) 58.2 ml/min Glucose 200 H (74-106) mg/dL POC Glucose 179 H (60-110) mg/dL Calcium 9.2 (8.5-10.1) mg/dL Phosphorus (2.6-4.7) mg/dL Magnesium (1.8-2.4) mg/dL Total Bilirubin 0.4 (0.2-1.0) mg/dL AST 20 (15-37) IU/L ALT 51 (14-63) IU/L Alkaline Phosphatase 67 (46-116) U/L Troponin I < 0.050 (0.000-0.056) ng/mL Total Protein 7.9 (6.4-8.2) g/dL Albumin 3.7 (3.4-5.0) g/dL Globulin 4.2 H (2.6-4.0) g/dL Albumin/Globulin Ratio 0.9 (0.9-1.6) Lipase 65 L (73-393) U/L Urine Color Urine Appearance Urine pH (5.0-8.0) Ur Specific Sargent (1.001-1.035) Urine Protein (NEGATIVE) mg/dL Urine Glucose (UA) (NEGATIVE) mg/dL Urine Ketones (NEGATIVE) mg/dL Urine Occult Blood (NEGATIVE) Urine Nitrite (NEGATIVE) Urine Bilirubin (NEGATIVE) Urine Urobilinogen (<2.0) EU/dL Ur Leukocyte Esterase (NEGATIVE) Influenza Type A RNA (NEGATIVE) Influenza Type B RNA (NEGATIVE) SARS-CoV-2 RNA (GLORIA) (NEGATIVE) 05/01/20 05/01/20 05/01/20 Range/Units 19:14 19:54 20:43 WBC (4.0-11.0) K/uL RBC (4.50-5.90) M/uL Hgb (13.0-17.0) g/dL Hct (38.0-50.0) % MCV (80.0-98.0) fL MCH (27.0-32.0) pg MCHC (31.0-37.0) g/dL RDW Std Deviation (28.0-62.0) fl RDW Coeff of Len (11.0-15.0) % Plt Count (150-400) K/uL MPV (7.40-12.00) fL Neut % (Auto) (48.0-80.0) % Lymph % (Auto) (16.0-40.0) % Weber % (Auto) (0.0-15.0) % Eos % (Auto) (0.0-7.0) % Baso % (Auto) (0.0-1.5) % Neut # (Auto) (1.4-5.7) K/uL Lymph # (Auto) (0.6-2.4) K/uL Weber # (Auto) (0.0-0.8) K/uL Eos # (Auto) (0.0-0.7) K/uL Baso # (Auto) (0.0-0.1) K/uL Nucleated RBC % /100WBC Nucleated RBCs # K/uL Lactate 1.7 (0.20-2.00) mmol/L Sodium (136-148) mmol/L Potassium (3.5-5.1) mmol/L Chloride (98-107) mmol/L Carbon Dioxide (21.0-32.0) mmol/L BUN (7.0-18.0) mg/dL Creatinine (0.8-1.3) mg/dL Est Cr Clr Drug Dosing mL/min Estimated GFR (MDRD) ml/min Glucose (74-106) mg/dL POC Glucose (60-110) mg/dL Calcium (8.5-10.1) mg/dL Phosphorus (2.6-4.7) mg/dL Magnesium (1.8-2.4) mg/dL Total Bilirubin (0.2-1.0) mg/dL AST (15-37) IU/L ALT (14-63) IU/L Alkaline Phosphatase (46-116) U/L Troponin I (0.000-0.056) ng/mL Total Protein (6.4-8.2) g/dL Albumin (3.4-5.0) g/dL Globulin (2.6-4.0) g/dL Albumin/Globulin Ratio (0.9-1.6) Lipase (73-393) U/L Urine Color YELLOW Urine Appearance CLEAR Urine pH 5.5 (5.0-8.0) Ur Specific Sargent <= 1.005 (1.001-1.035) Urine Protein NEGATIVE (NEGATIVE) mg/dL Urine Glucose (UA) NEGATIVE (NEGATIVE) mg/dL Urine Ketones NEGATIVE (NEGATIVE) mg/dL Urine Occult Blood NEGATIVE (NEGATIVE) Urine Nitrite NEGATIVE (NEGATIVE) Urine Bilirubin NEGATIVE (NEGATIVE) Urine Urobilinogen 0.2 (<2.0) EU/dL Ur Leukocyte Esterase NEGATIVE (NEGATIVE) Influenza Type A RNA NEGATIVE (NEGATIVE) Influenza Type B RNA NEGATIVE (NEGATIVE) SARS-CoV-2 RNA (GLORIA) NEGATIVE (NEGATIVE) 05/01/20 05/01/20 05/02/20 Range/Units 20:51 23:05 04:41 WBC (4.0-11.0) K/uL RBC (4.50-5.90) M/uL Hgb (13.0-17.0) g/dL Hct (38.0-50.0) % MCV (80.0-98.0) fL MCH (27.0-32.0) pg MCHC (31.0-37.0) g/dL RDW Std Deviation (28.0-62.0) fl RDW Coeff of Len (11.0-15.0) % Plt Count (150-400) K/uL MPV (7.40-12.00) fL Neut % (Auto) (48.0-80.0) % Lymph % (Auto) (16.0-40.0) % Weber % (Auto) (0.0-15.0) % Eos % (Auto) (0.0-7.0) % Baso % (Auto) (0.0-1.5) % Neut # (Auto) (1.4-5.7) K/uL Lymph # (Auto) (0.6-2.4) K/uL Weber # (Auto) (0.0-0.8) K/uL Eos # (Auto) (0.0-0.7) K/uL Baso # (Auto) (0.0-0.1) K/uL Nucleated RBC % /100WBC Nucleated RBCs # K/uL Lactate (0.20-2.00) mmol/L Sodium (136-148) mmol/L Potassium (3.5-5.1) mmol/L Chloride (98-107) mmol/L Carbon Dioxide (21.0-32.0) mmol/L BUN (7.0-18.0) mg/dL Creatinine (0.8-1.3) mg/dL Est Cr Clr Drug Dosing mL/min Estimated GFR (MDRD) ml/min Glucose (74-106) mg/dL POC Glucose 119 H 285 H 105 (60-110) mg/dL Calcium (8.5-10.1) mg/dL Phosphorus (2.6-4.7) mg/dL Magnesium (1.8-2.4) mg/dL Total Bilirubin (0.2-1.0) mg/dL AST (15-37) IU/L ALT (14-63) IU/L Alkaline Phosphatase (46-116) U/L Troponin I (0.000-0.056) ng/mL Total Protein (6.4-8.2) g/dL Albumin (3.4-5.0) g/dL Globulin (2.6-4.0) g/dL Albumin/Globulin Ratio (0.9-1.6) Lipase (73-393) U/L Urine Color Urine Appearance Urine pH (5.0-8.0) Ur Specific Sargent (1.001-1.035) Urine Protein (NEGATIVE) mg/dL Urine Glucose (UA) (NEGATIVE) mg/dL Urine Ketones (NEGATIVE) mg/dL Urine Occult Blood (NEGATIVE) Urine Nitrite (NEGATIVE) Urine Bilirubin (NEGATIVE) Urine Urobilinogen (<2.0) EU/dL Ur Leukocyte Esterase (NEGATIVE) Influenza Type A RNA (NEGATIVE) Influenza Type B RNA (NEGATIVE) SARS-CoV-2 RNA (GLORIA) (NEGATIVE) 05/02/20 05/02/20 Range/Units 05:10 05:10 WBC 23.11 H (4.0-11.0) K/uL RBC 3.96 L (4.50-5.90) M/uL Hgb 12.0 L (13.0-17.0) g/dL Hct 35.7 L (38.0-50.0) % MCV 90.2 (80.0-98.0) fL MCH 30.3 (27.0-32.0) pg MCHC 33.6 (31.0-37.0) g/dL RDW Std Deviation 45.9 (28.0-62.0) fl RDW Coeff of Len 14 (11.0-15.0) % Plt Count 268 (150-400) K/uL MPV 10.90 (7.40-12.00) fL Neut % (Auto) 78.1 (48.0-80.0) % Lymph % (Auto) 14.7 L (16.0-40.0) % Weber % (Auto) 6.5 (0.0-15.0) % Eos % (Auto) 0.6 (0.0-7.0) % Baso % (Auto) 0.1 (0.0-1.5) % Neut # (Auto) 18.0 H (1.4-5.7) K/uL Lymph # (Auto) 3.4 H (0.6-2.4) K/uL Weber # (Auto) 1.5 H (0.0-0.8) K/uL Eos # (Auto) 0.1 (0.0-0.7) K/uL Baso # (Auto) 0.0 (0.0-0.1) K/uL Nucleated RBC % 0.0 /100WBC Nucleated RBCs # 0 K/uL Lactate (0.20-2.00) mmol/L Sodium 140 (136-148) mmol/L Potassium 3.6 (3.5-5.1) mmol/L Chloride 106 (98-107) mmol/L Carbon Dioxide 26.1 (21.0-32.0) mmol/L BUN 11 (7.0-18.0) mg/dL Creatinine 1.0 (0.8-1.3) mg/dL Est Cr Clr Drug Dosing 75.91 mL/min Estimated GFR (MDRD) > 60.0 ml/min Glucose 112 H (74-106) mg/dL POC Glucose (60-110) mg/dL Calcium 8.2 L (8.5-10.1) mg/dL Phosphorus 2.7 (2.6-4.7) mg/dL Magnesium 1.6 L (1.8-2.4) mg/dL Total Bilirubin (0.2-1.0) mg/dL AST (15-37) IU/L ALT (14-63) IU/L Alkaline Phosphatase (46-116) U/L Troponin I (0.000-0.056) ng/mL Total Protein (6.4-8.2) g/dL Albumin (3.4-5.0) g/dL Globulin (2.6-4.0) g/dL Albumin/Globulin Ratio (0.9-1.6) Lipase (73-393) U/L Urine Color Urine Appearance Urine pH (5.0-8.0) Ur Specific Sargent (1.001-1.035) Urine Protein (NEGATIVE) mg/dL Urine Glucose (UA) (NEGATIVE) mg/dL Urine Ketones (NEGATIVE) mg/dL Urine Occult Blood (NEGATIVE) Urine Nitrite (NEGATIVE) Urine Bilirubin (NEGATIVE) Urine Urobilinogen (<2.0) EU/dL Ur Leukocyte Esterase (NEGATIVE) Influenza Type A RNA (NEGATIVE) Influenza Type B RNA (NEGATIVE) SARS-CoV-2 RNA (GLORIA) (NEGATIVE) Med Orders - Current: Current Medications Acetaminophen (Tylenol) 650 mg PO Q4H PRN PRN Reason: Pain (Mild 1-3)/fever Albuterol/Ipratropium (Duoneb 3.0-0.5 Mg/3 Ml) 3 ml NEB Q4HRRT PRN PRN Reason: Shortness Of Breath/wheezing Dextrose/Water (Dextrose 50% In Water) 50 ml IV ASDIRECTED PRN PRN Reason: Hypoglycemia Enoxaparin Sodium (Lovenox) 40 mg SUBCUT Q24H [facility] Last Admin: 05/01/20 23:08 Dose: 40 mg Documented by: Glucagon (Glucagen) 1 mg IM ASDIRECTED PRN PRN Reason: Hypoglycemia Lactated Ringer's (Ringers, Lactated) 1,000 mls @ 200 mls/hr IV ASDIRECTED [facility] Last Admin: 05/02/20 04:55 Dose: 200 mls/hr Documented by: Piperacillin Sod/Tazobactam (Sod 4.5 gm/ Sodium Chloride) 100 mls @ 100 mls/hr IV Q6H [facility] Last Admin: 05/02/20 03:17 Dose: 100 mls/hr Documented by: Vancomycin HCl 1.75 gm/ Sodium (Chloride) 500 mls @ 333.333 mls/hr IV Q12H [facility] Magnesium Sulfate (Magnesium Sulfate In Water 4 Gm/100 Ml) 4 gm in 100 mls @ 50 mls/hr IV ONETIME ONE Stop: 05/02/20 09:49 Insulin Aspart (Novolog) 0 unit SUBCUT Q6H [facility]; Protocol Last Admin: 05/02/20 04:53 Dose: Not Given Documented by: Ondansetron HCl (Zofran) 4 mg IVPUSH Q4H PRN PRN Reason: Nausea/Vomiting Vancomycin HCl (Pharmacy To Dose - Vancomycin) 1 dose .XX ASDIRECTED MANOJ Discontinued Medications Sodium Chloride (Normal Saline) 1,000 mls @ 999 mls/hr IV BOLUS ONE Stop: 05/01/20 19:32 Last Admin: 05/01/20 18:37 Dose: 999 mls/hr Documented by: Sodium Chloride (Normal Saline) 1,000 mls @ 999 mls/hr IV STAT ONE Stop: 05/01/20 20:17 Last Admin: 05/01/20 19:51 Dose: 999 mls/hr Documented by: Piperacillin Sod/Tazobactam (Sod 3.375 gm/ Sodium Chloride) 50 mls @ 100 mls/hr IV ONETIME ONE Stop: 05/01/20 19:46 Last Admin: 05/01/20 19:26 Dose: Not Given Documented by: Vancomycin HCl 1.5 gm/ Sodium (Chloride) 500 mls @ 333 mls/hr IV NOW STA Stop: 05/01/20 20:49 Last Admin: 05/01/20 20:15 Dose: Not Given Documented by: Piperacillin Sod/Tazobactam (Sod 4.5 gm/ Sodium Chloride) 100 mls @ 100 mls/hr IV ONETIME ONE Stop: 05/01/20 20:19 Last Admin: 05/01/20 19:51 Dose: 100 mls/hr Documented by: Vancomycin HCl (Vancomycin 1.5 Gm/300 Ml) 300 mls @ 199.815 mls/hr IV NOW STA Stop: 05/01/20 21:40 Last Admin: 05/01/20 20:51 Dose: 199.815 mls/hr Documented by: Sodium Chloride (Normal Saline) 1,000 mls @ 125 mls/hr IV STAT MANOJ Last Infusion: 05/01/20 22:34 Dose: 0 mls/hr Documented by: Piperacillin Sod/Tazobactam (Sod 3.375 gm/ Sodium Chloride) 50 mls @ 100 mls/hr IV Q8H [facility] Lactated Ringer's (Ringers, Lactated) 1,000 mls @ 999 mls/hr IV .BOLUS ONE Stop: 05/01/20 23:23 Last Admin: 05/01/20 22:33 Dose: 999 mls/hr Documented by: Iopamidol (Isovue Multipack-370 (76%)) 100 ml IVPUSH ONETIME STA Stop: 05/01/20 20:19 Last Admin: 05/01/20 20:19 Dose: 100 ml Documented by: Ondansetron HCl (Zofran) 4 mg IVPUSH ONETIME ONE Stop: 05/01/20 18:37 Last Admin: 05/01/20 19:09 Dose: 4 mg Documented by: - Exam Quality Assessment: DVT Prophylaxis. No: Supplemental Oxygen, Urine Catheter General: Alert, Oriented, Cooperative, No Acute Distress Lungs: Clear to Auscultation, Normal Respiratory Effort Cardiovascular: Regular Rate, Regular Rhythm GI/Abdominal Exam: Normal Bowel Sounds, Soft, Non-Tender Back Exam: Normal Inspection, Full Range of Motion Extremities: Normal Inspection, Normal Range of Motion, Non-Tender, No Pedal Edema Neurological: No New Focal Deficit Psy/Mental Status: Alert, Normal Affect, Normal Mood - Patient Data Lab Results Last 24 hrs: Laboratory Results - last 24 hr 05/01/20 05/01/20 05/01/20 Range/Units 18:22 18:34 18:34 WBC 25.50 H (4.0-11.0) K/uL RBC 4.60 (4.50-5.90) M/uL Hgb 14.2 (13.0-17.0) g/dL Hct 41.0 (38.0-50.0) % MCV 89.1 (80.0-98.0) fL MCH 30.9 (27.0-32.0) pg MCHC 34.6 (31.0-37.0) g/dL RDW Std Deviation 44.6 (28.0-62.0) fl RDW Coeff of Len 14 (11.0-15.0) % Plt Count 299 (150-400) K/uL MPV 10.70 (7.40-12.00) fL Neut % (Auto) 87.1 H (48.0-80.0) % Lymph % (Auto) 6.6 L (16.0-40.0) % Weber % (Auto) 5.9 (0.0-15.0) % Eos % (Auto) 0.3 (0.0-7.0) % Baso % (Auto) 0.1 (0.0-1.5) % Neut # (Auto) 22.2 H (1.4-5.7) K/uL Lymph # (Auto) 1.7 (0.6-2.4) K/uL Weber # (Auto) 1.5 H (0.0-0.8) K/uL Eos # (Auto) 0.1 (0.0-0.7) K/uL Baso # (Auto) 0.0 (0.0-0.1) K/uL Nucleated RBC % 0.0 /100WBC Nucleated RBCs # 0 K/uL Lactate (0.20-2.00) mmol/L Sodium 137 (136-148) mmol/L Potassium 3.7 (3.5-5.1) mmol/L Chloride 99 (98-107) mmol/L Carbon Dioxide 24.5 (21.0-32.0) mmol/L BUN 13 (7.0-18.0) mg/dL Creatinine 1.3 (0.8-1.3) mg/dL Est Cr Clr Drug Dosing 58.48 mL/min Estimated GFR (MDRD) 58.2 ml/min Glucose 200 H (74-106) mg/dL POC Glucose 179 H (60-110) mg/dL Calcium 9.2 (8.5-10.1) mg/dL Phosphorus (2.6-4.7) mg/dL Magnesium (1.8-2.4) mg/dL Total Bilirubin 0.4 (0.2-1.0) mg/dL AST 20 (15-37) IU/L ALT 51 (14-63) IU/L Alkaline Phosphatase 67 (46-116) U/L Troponin I < 0.050 (0.000-0.056) ng/mL Total Protein 7.9 (6.4-8.2) g/dL Albumin 3.7 (3.4-5.0) g/dL Globulin 4.2 H (2.6-4.0) g/dL Albumin/Globulin Ratio 0.9 (0.9-1.6) Lipase 65 L (73-393) U/L Urine Color Urine Appearance Urine pH (5.0-8.0) Ur Specific Sargent (1.001-1.035) Urine Protein (NEGATIVE) mg/dL Urine Glucose (UA) (NEGATIVE) mg/dL Urine Ketones (NEGATIVE) mg/dL Urine Occult Blood (NEGATIVE) Urine Nitrite (NEGATIVE) Urine Bilirubin (NEGATIVE) Urine Urobilinogen (<2.0) EU/dL Ur Leukocyte Esterase (NEGATIVE) Influenza Type A RNA (NEGATIVE) Influenza Type B RNA (NEGATIVE) SARS-CoV-2 RNA (GLORIA) (NEGATIVE) 05/01/20 05/01/20 05/01/20 Range/Units 19:14 19:54 20:43 WBC (4.0-11.0) K/uL RBC (4.50-5.90) M/uL Hgb (13.0-17.0) g/dL Hct (38.0-50.0) % MCV (80.0-98.0) fL MCH (27.0-32.0) pg MCHC (31.0-37.0) g/dL RDW Std Deviation (28.0-62.0) fl RDW Coeff of Len (11.0-15.0) % Plt Count (150-400) K/uL MPV (7.40-12.00) fL Neut % (Auto) (48.0-80.0) % Lymph % (Auto) (16.0-40.0) % Weber % (Auto) (0.0-15.0) % Eos % (Auto) (0.0-7.0) % Baso % (Auto) (0.0-1.5) % Neut # (Auto) (1.4-5.7) K/uL Lymph # (Auto) (0.6-2.4) K/uL Weber # (Auto) (0.0-0.8) K/uL Eos # (Auto) (0.0-0.7) K/uL Baso # (Auto) (0.0-0.1) K/uL Nucleated RBC % /100WBC Nucleated RBCs # K/uL Lactate 1.7 (0.20-2.00) mmol/L Sodium (136-148) mmol/L Potassium (3.5-5.1) mmol/L Chloride (98-107) mmol/L Carbon Dioxide (21.0-32.0) mmol/L BUN (7.0-18.0) mg/dL Creatinine (0.8-1.3) mg/dL Est Cr Clr Drug Dosing mL/min Estimated GFR (MDRD) ml/min Glucose (74-106) mg/dL POC Glucose (60-110) mg/dL Calcium (8.5-10.1) mg/dL Phosphorus (2.6-4.7) mg/dL Magnesium (1.8-2.4) mg/dL Total Bilirubin (0.2-1.0) mg/dL AST (15-37) IU/L ALT (14-63) IU/L Alkaline Phosphatase (46-116) U/L Troponin I (0.000-0.056) ng/mL Total Protein (6.4-8.2) g/dL Albumin (3.4-5.0) g/dL Globulin (2.6-4.0) g/dL Albumin/Globulin Ratio (0.9-1.6) Lipase (73-393) U/L Urine Color YELLOW Urine Appearance CLEAR Urine pH 5.5 (5.0-8.0) Ur Specific Sargent <= 1.005 (1.001-1.035) Urine Protein NEGATIVE (NEGATIVE) mg/dL Urine Glucose (UA) NEGATIVE (NEGATIVE) mg/dL Urine Ketones NEGATIVE (NEGATIVE) mg/dL Urine Occult Blood NEGATIVE (NEGATIVE) Urine Nitrite NEGATIVE (NEGATIVE) Urine Bilirubin NEGATIVE (NEGATIVE) Urine Urobilinogen 0.2 (<2.0) EU/dL Ur Leukocyte Esterase NEGATIVE (NEGATIVE) Influenza Type A RNA NEGATIVE (NEGATIVE) Influenza Type B RNA NEGATIVE (NEGATIVE) SARS-CoV-2 RNA (GLORIA) NEGATIVE (NEGATIVE) 05/01/20 05/01/20 05/02/20 Range/Units 20:51 23:05 04:41 WBC (4.0-11.0) K/uL RBC (4.50-5.90) M/uL Hgb (13.0-17.0) g/dL Hct (38.0-50.0) % MCV (80.0-98.0) fL MCH (27.0-32.0) pg MCHC (31.0-37.0) g/dL RDW Std Deviation (28.0-62.0) fl RDW Coeff of Len (11.0-15.0) % Plt Count (150-400) K/uL MPV (7.40-12.00) fL Neut % (Auto) (48.0-80.0) % Lymph % (Auto) (16.0-40.0) % Weber % (Auto) (0.0-15.0) % Eos % (Auto) (0.0-7.0) % Baso % (Auto) (0.0-1.5) % Neut # (Auto) (1.4-5.7) K/uL Lymph # (Auto) (0.6-2.4) K/uL Weber # (Auto) (0.0-0.8) K/uL Eos # (Auto) (0.0-0.7) K/uL Baso # (Auto) (0.0-0.1) K/uL Nucleated RBC % /100WBC Nucleated RBCs # K/uL Lactate (0.20-2.00) mmol/L Sodium (136-148) mmol/L Potassium (3.5-5.1) mmol/L Chloride (98-107) mmol/L Carbon Dioxide (21.0-32.0) mmol/L BUN (7.0-18.0) mg/dL Creatinine (0.8-1.3) mg/dL Est Cr Clr Drug Dosing mL/min Estimated GFR (MDRD) ml/min Glucose (74-106) mg/dL POC Glucose 119 H 285 H 105 (60-110) mg/dL Calcium (8.5-10.1) mg/dL Phosphorus (2.6-4.7) mg/dL Magnesium (1.8-2.4) mg/dL Total Bilirubin (0.2-1.0) mg/dL AST (15-37) IU/L ALT (14-63) IU/L Alkaline Phosphatase (46-116) U/L Troponin I (0.000-0.056) ng/mL Total Protein (6.4-8.2) g/dL Albumin (3.4-5.0) g/dL Globulin (2.6-4.0) g/dL Albumin/Globulin Ratio (0.9-1.6) Lipase (73-393) U/L Urine Color Urine Appearance Urine pH (5.0-8.0) Ur Specific Sargent (1.001-1.035) Urine Protein (NEGATIVE) mg/dL Urine Glucose (UA) (NEGATIVE) mg/dL Urine Ketones (NEGATIVE) mg/dL Urine Occult Blood (NEGATIVE) Urine Nitrite (NEGATIVE) Urine Bilirubin (NEGATIVE) Urine Urobilinogen (<2.0) EU/dL Ur Leukocyte Esterase (NEGATIVE) Influenza Type A RNA (NEGATIVE) Influenza Type B RNA (NEGATIVE) SARS-CoV-2 RNA (GLORIA) (NEGATIVE) 05/02/20 05/02/20 Range/Units 05:10 05:10 WBC 23.11 H (4.0-11.0) K/uL RBC 3.96 L (4.50-5.90) M/uL Hgb 12.0 L (13.0-17.0) g/dL Hct 35.7 L (38.0-50.0) % MCV 90.2 (80.0-98.0) fL MCH 30.3 (27.0-32.0) pg MCHC 33.6 (31.0-37.0) g/dL RDW Std Deviation 45.9 (28.0-62.0) fl RDW Coeff of Len 14 (11.0-15.0) % Plt Count 268 (150-400) K/uL MPV 10.90 (7.40-12.00) fL Neut % (Auto) 78.1 (48.0-80.0) % Lymph % (Auto) 14.7 L (16.0-40.0) % Weber % (Auto) 6.5 (0.0-15.0) % Eos % (Auto) 0.6 (0.0-7.0) % Baso % (Auto) 0.1 (0.0-1.5) % Neut # (Auto) 18.0 H (1.4-5.7) K/uL Lymph # (Auto) 3.4 H (0.6-2.4) K/uL Weber # (Auto) 1.5 H (0.0-0.8) K/uL Eos # (Auto) 0.1 (0.0-0.7) K/uL Baso # (Auto) 0.0 (0.0-0.1) K/uL Nucleated RBC % 0.0 /100WBC Nucleated RBCs # 0 K/uL Lactate (0.20-2.00) mmol/L Sodium 140 (136-148) mmol/L Potassium 3.6 (3.5-5.1) mmol/L Chloride 106 (98-107) mmol/L Carbon Dioxide 26.1 (21.0-32.0) mmol/L BUN 11 (7.0-18.0) mg/dL Creatinine 1.0 (0.8-1.3) mg/dL Est Cr Clr Drug Dosing 75.91 mL/min Estimated GFR (MDRD) > 60.0 ml/min Glucose 112 H (74-106) mg/dL POC Glucose (60-110) mg/dL Calcium 8.2 L (8.5-10.1) mg/dL Phosphorus 2.7 (2.6-4.7) mg/dL Magnesium 1.6 L (1.8-2.4) mg/dL Total Bilirubin (0.2-1.0) mg/dL AST (15-37) IU/L ALT (14-63) IU/L Alkaline Phosphatase (46-116) U/L Troponin I (0.000-0.056) ng/mL Total Protein (6.4-8.2) g/dL Albumin (3.4-5.0) g/dL Globulin (2.6-4.0) g/dL Albumin/Globulin Ratio (0.9-1.6) Lipase (73-393) U/L Urine Color Urine Appearance Urine pH (5.0-8.0) Ur Specific Sargent (1.001-1.035) Urine Protein (NEGATIVE) mg/dL Urine Glucose (UA) (NEGATIVE) mg/dL Urine Ketones (NEGATIVE) mg/dL Urine Occult Blood (NEGATIVE) Urine Nitrite (NEGATIVE) Urine Bilirubin (NEGATIVE) Urine Urobilinogen (<2.0) EU/dL Ur Leukocyte Esterase (NEGATIVE) Influenza Type A RNA (NEGATIVE) Influenza Type B RNA (NEGATIVE) SARS-CoV-2 RNA ([place]) (NEGATIVE) Result Diagrams: 05/02/20 05:10 05/02/20 05:10 Sepsis Event Note - Evaluation Sepsis Screening Result: No Definite Risk - Focused Exam Vital Signs: Vital Signs Temp Pulse Resp BP Pulse Ox Pulse Ox 05/02/20 04:00 97.7 F 89 18 117/54 L 95 05/02/20 03:00 136/72 05/02/20 02:00 103/63 05/02/20 01:30 104/62 05/02/20 01:00 98/62 05/02/20 00:30 87/54 L 05/02/20 00:00 97.2 F 88 17 92/55 L 95 05/01/20 23:45 107/53 L 05/01/20 23:30 87/57 L 05/01/20 23:00 87/48 L 05/01/20 22:45 90 91/46 L 05/01/20 22:30 97.2 F 89 16 91/32 L 94 L 05/01/20 22:19 94 L 05/01/20 21:39 98.4 F 95 16 94/59 L 99 05/01/20 20:15 105 H 16 108/57 L 93 L - Problem List & Annotations (1) Community acquired pneumonia SNOMED Code(s): 539244945 Code(s): J18.9 - PNEUMONIA, UNSPECIFIED ORGANISM Status: Acute Current Visit: Yes Qualifiers: Laterality: left Lung location: lower lobe of lung Qualified Code(s): J18.9 - Pneumonia, unspecified organism (2) Diabetes mellitus SNOMED Code(s): 17320714 Code(s): E11.9 - TYPE 2 DIABETES MELLITUS WITHOUT COMPLICATIONS Status: Acute Current Visit: Yes (3) GERD (gastroesophageal reflux disease) SNOMED Code(s): 267701664 Code(s): K21.9 - GASTRO-ESOPHAGEAL REFLUX DISEASE WITHOUT ESOPHAGITIS Status: Acute Current Visit: Yes (4) HLD (hyperlipidemia) SNOMED Code(s): 85338667 Code(s): E78.5 - HYPERLIPIDEMIA, UNSPECIFIED Status: Acute Current Visit: Yes (5) HTN (hypertension) SNOMED Code(s): 04295029 Code(s): I10 - ESSENTIAL (PRIMARY) HYPERTENSION Status: Acute Current Visit: Yes (6) Obesity SNOMED Code(s): 104828911, 916890713 Code(s): E66.9 - OBESITY, UNSPECIFIED Status: Acute Current Visit: Yes (7) Sepsis SNOMED Code(s): 65690517 Code(s): A41.9 - SEPSIS, UNSPECIFIED ORGANISM Status: Acute Current Visit: Yes Qualifiers: Sepsis type: sepsis due to unspecified organism Sepsis acute organ dysfunction status: without acute organ dysfunction Qualified Code(s): A41.9 - Sepsis, unspecified organism (8) Sleep apnea SNOMED Code(s): 41268078 Code(s): G47.30 - SLEEP APNEA, UNSPECIFIED Status: Acute Current Visit: Yes - Problem List Review Problem List Initiated/Reviewed/Updated: Yes - My Orders Last 24 Hours: My Active Orders 05/02/20 07:50 Magnesium Sulfate non-OB 4 GM ONETIME Magnesium Sulfate/Water [Magnesium Sulfate in Water 4 GM/100 ML] 4 gm in 100 ml IV ONETIME - Plan Plan:: 50 y/o M admitted for sepsis secondary to LLL pneumonia 1.Pneumonia possible aspiration/sepsis -Sepsis resolved -cont IV vancomycin and IV zosyn -Blood pressure improved with aggressive IV fluid hydration. Remains on the lower side we will hold off on starting oral antihypertensives. -Blood cultures pending -Having sore throat and jaw soreness today. Sore throat and jaw soreness may be from intubation yesterday due to colonoscopy. Will obtain strep culture to be complete. 2. Hypertension -Hold multiple antihypertensives and slowly restart tomorrow 3. DM type II -Continue insulin hold oral diabetic medication -NovoLog sliding scale -ADA diet VTE prophylaxis: Lovenox: GI prophylaxis; Protonix CODE STATUS: Full code Dispo: 2 to 3 days pending improvement
[2020-05-02] MEDS ORDERED: Vancomycin 1.75 GM in Sodium Chloride 0.9% 500 ML IV SCH (09:00)
[2020-05-02] MEDS ORDERED: Phenol 1.4% Oral Spray 177 ML Bottle MUCMEM PRN (09:23)
[2020-05-02] MEDS: Acetaminophen 325 MG Tab PO PRN ×2 (11:07→22:05)
[2020-05-02] MEDS: VANCOmycin 1.75 GM/350 ML 1.75 GM in Premix Bag 1 BAG IV SCH ×2 (11:31→23:22)
[2020-05-02] MEDS ORDERED: VANCOmycin 1.75 GM/350 ML 1.75 GM in Premix Bag 1 BAG IV SCH (21:00)
[2020-05-02] MEDS: Pravastatin 40 MG Tab PO SCH (22:06)
[2020-05-02] MEDS: Enoxaparin 40 MG/0.4 ML Syringe SUBCUT SCH (22:15)
[2020-05-03] MEDS: Piperacillin/Tazobactam 4.5 GM in Sodium Chloride 0.9% 100 ML IV SCH ×3 (03:53→15:07)
[2020-05-03] MEDS: Pantoprazole 40 MG Tab.CR PO SCH (06:41)
[2020-05-03] MEDS: Lactated Ringers 1,000 ML IV SCH ×3 (06:44→19:18)
[2020-05-03 07:36] LABS: BLOOD UREA NITROGEN,BUN 9 mg/dL (7.0-18.0); CARBON DIOXIDE,CO2 23.4 mmol/L (21.0-32.0); CHLORIDE,CL 106 mmol/L (98-107); GLUCOSE RANDOM 124 mg/dL (74-106); POTASSIUM,K 3.8 mmol/L (3.5-5.1); SODIUM,NA 140 mmol/L (136-148)
[2020-05-03] MEDS: Insulin Aspart 100 Units/ML 3 ML Pen SUBCUT SCH ×3 (08:26→18:49)
[2020-05-03] MEDS: VANCOmycin 1.75 GM/350 ML 1.75 GM in Premix Bag 1 BAG IV SCH (11:46)
--- NOTE | 2020-05-03 11:55 | PCM.PN ---
- General Info Date of Service: 05/03/20 Admission Dx/Problem (Free Text): Admission Diagnosis/Problem Admission Diagnosis/Problem Pneumonia Subjective Update: Feeling better today. No chest pain, or significant shortness of breath. Mild intermittent cough. reports jaw is sore, like he is bruised. No other concerns Functional Status: Reports: Tolerating Diet, Ambulating, Urinating - Review of Systems General: Denies: Fever, Weakness Pulmonary: Denies: Shortness of Breath, Pleuritic Chest Pain Cardiovascular: Reports: Dyspnea on Exertion. Denies: Chest Pain, Palpitations Gastrointestinal: Denies: Abdominal Pain, Constipation Genitourinary: Denies: Dysuria, Frequency, Burning Musculoskeletal: Denies: Neck Pain, Shoulder Pain Skin: Denies: Cyanosis, Jaundice, Mottled Neurological: Denies: Confusion, Dizziness, Headache - Patient Data Vitals - Most Recent: Last Vital Signs Temp 36.6 C 05/03/20 09:51 Pulse 90 05/03/20 09:51 Resp 20 05/03/20 09:51 BP 135/79 05/03/20 09:51 Pulse Ox 98 05/03/20 09:51 Weight - Most Recent: 121.361 kg I&O - Last 24 Hours: Intake & Output 05/02/20 05/03/20 05/03/20 22:59 06:59 14:59 Intake Total 3633 2320 Output Total 3325 1500 Balance 308 820 Lab Results Last 24 Hours: Laboratory Results - last 24 hr 05/02/20 05/02/20 05/02/20 Range/Units 13:13 14:55 17:41 WBC (4.0-11.0) K/uL RBC (4.50-5.90) M/uL Hgb (13.0-17.0) g/dL Hct (38.0-50.0) % MCV (80.0-98.0) fL MCH (27.0-32.0) pg MCHC (31.0-37.0) g/dL RDW Std Deviation (28.0-62.0) fl RDW Coeff of Len (11.0-15.0) % Plt Count (150-400) K/uL MPV (7.40-12.00) fL Neut % (Auto) (48.0-80.0) % Lymph % (Auto) (16.0-40.0) % Randolph % (Auto) (0.0-15.0) % Eos % (Auto) (0.0-7.0) % Baso % (Auto) (0.0-1.5) % Neut # (Auto) (1.4-5.7) K/uL Lymph # (Auto) (0.6-2.4) K/uL Randolph # (Auto) (0.0-0.8) K/uL Eos # (Auto) (0.0-0.7) K/uL Baso # (Auto) (0.0-0.1) K/uL Nucleated RBC % /100WBC Nucleated RBCs # K/uL Sodium (136-148) mmol/L Potassium (3.5-5.1) mmol/L Chloride (98-107) mmol/L Carbon Dioxide (21.0-32.0) mmol/L BUN (7.0-18.0) mg/dL Creatinine (0.8-1.3) mg/dL Est Cr Clr Drug Dosing mL/min Estimated GFR (MDRD) ml/min Glucose (74-106) mg/dL POC Glucose 101 111 H (60-110) mg/dL Calcium (8.5-10.1) mg/dL Magnesium (1.8-2.4) mg/dL Total Bilirubin (0.2-1.0) mg/dL AST (15-37) IU/L ALT (14-63) IU/L Alkaline Phosphatase (46-116) U/L Total Protein (6.4-8.2) g/dL Albumin (3.4-5.0) g/dL Globulin (2.6-4.0) g/dL Albumin/Globulin Ratio (0.9-1.6) Group A Strep (PCR) NOT DETECTED (NOT DETECT) 05/03/20 05/03/20 05/03/20 Range/Units 06:17 06:25 06:25 WBC 15.33 H (4.0-11.0) K/uL RBC 4.18 L (4.50-5.90) M/uL Hgb 12.7 L (13.0-17.0) g/dL Hct 37.9 L (38.0-50.0) % MCV 90.7 (80.0-98.0) fL MCH 30.4 (27.0-32.0) pg MCHC 33.5 (31.0-37.0) g/dL RDW Std Deviation 46.5 (28.0-62.0) fl RDW Coeff of Len 14 (11.0-15.0) % Plt Count 273 (150-400) K/uL MPV 11.10 (7.40-12.00) fL Neut % (Auto) 69.5 (48.0-80.0) % Lymph % (Auto) 20.7 (16.0-40.0) % Randolph % (Auto) 8.0 (0.0-15.0) % Eos % (Auto) 1.6 (0.0-7.0) % Baso % (Auto) 0.2 (0.0-1.5) % Neut # (Auto) 10.7 H (1.4-5.7) K/uL Lymph # (Auto) 3.2 H (0.6-2.4) K/uL Randolph # (Auto) 1.2 H (0.0-0.8) K/uL Eos # (Auto) 0.3 (0.0-0.7) K/uL Baso # (Auto) 0.0 (0.0-0.1) K/uL Nucleated RBC % 0.0 /100WBC Nucleated RBCs # 0 K/uL Sodium 140 (136-148) mmol/L Potassium 3.8 (3.5-5.1) mmol/L Chloride 106 (98-107) mmol/L Carbon Dioxide 23.4 (21.0-32.0) mmol/L BUN 9 (7.0-18.0) mg/dL Creatinine 1.0 (0.8-1.3) mg/dL Est Cr Clr Drug Dosing 75.91 mL/min Estimated GFR (MDRD) > 60.0 ml/min Glucose 124 H (74-106) mg/dL POC Glucose 120 H (60-110) mg/dL Calcium 8.8 (8.5-10.1) mg/dL Magnesium 2.6 H (1.8-2.4) mg/dL Total Bilirubin 0.3 (0.2-1.0) mg/dL AST 10 L (15-37) IU/L ALT 33 (14-63) IU/L Alkaline Phosphatase 54 (46-116) U/L Total Protein 7.4 (6.4-8.2) g/dL Albumin 3.2 L (3.4-5.0) g/dL Globulin 4.2 H (2.6-4.0) g/dL Albumin/Globulin Ratio 0.8 L (0.9-1.6) Group A Strep (PCR) (NOT DETECT) Oscar Results Last 24 Hours: Microbiology 05/01/20 19:54 Aerobic Blood Culture - Preliminary Blood - Venous - Lab Draw NO GROWTH AFTER 1 DAY Anaerobic Blood Culture - Preliminary NO GROWTH AFTER 1 DAY 05/01/20 19:49 Aerobic Blood Culture - Preliminary Blood - Venous NO GROWTH AFTER 1 DAY Anaerobic Blood Culture - Preliminary NO GROWTH AFTER 1 DAY Med Orders - Current: Current Medications Acetaminophen (Tylenol) 650 mg PO Q4H PRN PRN Reason: Pain (Mild 1-3)/fever Last Admin: 05/02/20 22:05 Dose: 650 mg Documented by: Albuterol/Ipratropium (Duoneb 3.0-0.5 Mg/3 Ml) 3 ml NEB Q4HRRT PRN PRN Reason: Shortness Of Breath/wheezing Dextrose/Water (Dextrose 50% In Water) 50 ml IV ASDIRECTED PRN PRN Reason: Hypoglycemia Enoxaparin Sodium (Lovenox) 40 mg SUBCUT Q24H [facility] Last Admin: 05/02/20 22:15 Dose: 40 mg Documented by: Glucagon (Glucagen) 1 mg IM ASDIRECTED PRN PRN Reason: Hypoglycemia Piperacillin Sod/Tazobactam (Sod 4.5 gm/ Sodium Chloride) 100 mls @ 100 mls/hr IV Q6H [facility] Last Admin: 05/03/20 09:29 Dose: 100 mls/hr Documented by: Vancomycin HCl 1.75 gm/ Premix 350 mls @ 233.333 mls/hr IV Q12H [facility] Last Admin: 05/03/20 11:46 Dose: 233.333 mls/hr Documented by: Lactated Ringer's (Ringers, Lactated) 1,000 mls @ 150 mls/hr IV Q6H [facility] Last Admin: 05/03/20 06:44 Dose: 150 mls/hr Documented by: Insulin Aspart (Novolog) 0 unit SUBCUT TIDAC [facility]; Protocol Last Admin: 05/03/20 11:52 Dose: Not Given Documented by: Ondansetron HCl (Zofran) 4 mg IVPUSH Q4H PRN PRN Reason: Nausea/Vomiting Pantoprazole Sodium (Protonix) 40 mg PO ACBREAKFAST [facility] Last Admin: 05/03/20 06:41 Dose: 40 mg Documented by: Phenol/Menthol (Chloraseptic Throat Tererro) 0 ml MUCMEM Q2H PRN PRN Reason: Sore Throat Pravastatin Sodium (Pravachol) 80 mg PO BEDTIME [facility] Last Admin: 05/02/20 22:06 Dose: 80 mg Documented by: Vancomycin HCl (Pharmacy To Dose - Vancomycin) 1 dose .XX ASDIRECTED [facility] Discontinued Medications Sodium Chloride (Normal Saline) 1,000 mls @ 999 mls/hr IV BOLUS ONE Stop: 05/01/20 19:32 Last Admin: 05/01/20 18:37 Dose: 999 mls/hr Documented by: Sodium Chloride (Normal Saline) 1,000 mls @ 999 mls/hr IV STAT ONE Stop: 05/01/20 20:17 Last Admin: 05/01/20 19:51 Dose: 999 mls/hr Documented by: Piperacillin Sod/Tazobactam (Sod 3.375 gm/ Sodium Chloride) 50 mls @ 100 mls/hr IV ONETIME ONE Stop: 05/01/20 19:46 Last Admin: 05/01/20 19:26 Dose: Not Given Documented by: Vancomycin HCl 1.5 gm/ Sodium (Chloride) 500 mls @ 333 mls/hr IV NOW STA Stop: 05/01/20 20:49 Last Admin: 05/01/20 20:15 Dose: Not Given Documented by: Piperacillin Sod/Tazobactam (Sod 4.5 gm/ Sodium Chloride) 100 mls @ 100 mls/hr IV ONETIME ONE Stop: 05/01/20 20:19 Last Admin: 05/01/20 19:51 Dose: 100 mls/hr Documented by: Vancomycin HCl (Vancomycin 1.5 Gm/300 Ml) 300 mls @ 199.815 mls/hr IV NOW STA Stop: 05/01/20 21:40 Last Admin: 05/01/20 20:51 Dose: 199.815 mls/hr Documented by: Sodium Chloride (Normal Saline) 1,000 mls @ 125 mls/hr IV STAT [facility] Last Infusion: 05/01/20 22:34 Dose: 0 mls/hr Documented by: Lactated Ringer's (Ringers, Lactated) 1,000 mls @ 200 mls/hr IV ASDIRECTED [facility] Last Admin: 05/02/20 10:14 Dose: 200 mls/hr Documented by: Piperacillin Sod/Tazobactam (Sod 3.375 gm/ Sodium Chloride) 50 mls @ 100 mls/hr IV Q8H [facility] Lactated Ringer's (Ringers, Lactated) 1,000 mls @ 999 mls/hr IV .BOLUS ONE Stop: 05/01/20 23:23 Last Admin: 05/01/20 22:33 Dose: 999 mls/hr Documented by: Vancomycin HCl 1.75 gm/ Sodium (Chloride) 500 mls @ 333.333 mls/hr IV Q12H [facility] Last Admin: 05/02/20 10:41 Dose: Not Given Documented by: Magnesium Sulfate (Magnesium Sulfate In Water 4 Gm/100 Ml) 4 gm in 100 mls @ 33.333 mls/hr IV ONETIME ONE Stop: 05/02/20 10:49 Last Admin: 05/02/20 08:20 Dose: 33.333 mls/hr Documented by: Insulin Aspart (Novolog) 0 unit SUBCUT Q6H [facility]; Protocol Last Admin: 05/02/20 13:00 Dose: Not Given Documented by: Iopamidol (Isovue Multipack-370 (76%)) 100 ml IVPUSH ONETIME STA Stop: 05/01/20 20:19 Last Admin: 05/01/20 20:19 Dose: 100 ml Documented by: Ondansetron HCl (Zofran) 4 mg IVPUSH ONETIME ONE Stop: 05/01/20 18:37 Last Admin: 05/01/20 19:09 Dose: 4 mg Documented by: - Exam Quality Assessment: Supplemental Oxygen General: Alert, Oriented Lungs: Clear to Auscultation, Normal Respiratory Effort Cardiovascular: Regular Rate, Regular Rhythm GI/Abdominal Exam: Normal Bowel Sounds, Soft, Non-Tender Extremities: Normal Inspection, Normal Range of Motion, Non-Tender - Patient Data Lab Results Last 24 hrs: Laboratory Results - last 24 hr 05/02/20 05/02/20 05/02/20 Range/Units 13:13 14:55 17:41 WBC (4.0-11.0) K/uL RBC (4.50-5.90) M/uL Hgb (13.0-17.0) g/dL Hct (38.0-50.0) % MCV (80.0-98.0) fL MCH (27.0-32.0) pg MCHC (31.0-37.0) g/dL RDW Std Deviation (28.0-62.0) fl RDW Coeff of Len (11.0-15.0) % Plt Count (150-400) K/uL MPV (7.40-12.00) fL Neut % (Auto) (48.0-80.0) % Lymph % (Auto) (16.0-40.0) % Randolph % (Auto) (0.0-15.0) % Eos % (Auto) (0.0-7.0) % Baso % (Auto) (0.0-1.5) % Neut # (Auto) (1.4-5.7) K/uL Lymph # (Auto) (0.6-2.4) K/uL Randolph # (Auto) (0.0-0.8) K/uL Eos # (Auto) (0.0-0.7) K/uL Baso # (Auto) (0.0-0.1) K/uL Nucleated RBC % /100WBC Nucleated RBCs # K/uL Sodium (136-148) mmol/L Potassium (3.5-5.1) mmol/L Chloride (98-107) mmol/L Carbon Dioxide (21.0-32.0) mmol/L BUN (7.0-18.0) mg/dL Creatinine (0.8-1.3) mg/dL Est Cr Clr Drug Dosing mL/min Estimated GFR (MDRD) ml/min Glucose (74-106) mg/dL POC Glucose 101 111 H (60-110) mg/dL Calcium (8.5-10.1) mg/dL Magnesium (1.8-2.4) mg/dL Total Bilirubin (0.2-1.0) mg/dL AST (15-37) IU/L ALT (14-63) IU/L Alkaline Phosphatase (46-116) U/L Total Protein (6.4-8.2) g/dL Albumin (3.4-5.0) g/dL Globulin (2.6-4.0) g/dL Albumin/Globulin Ratio (0.9-1.6) Group A Strep (PCR) NOT DETECTED (NOT DETECT) 05/03/20 05/03/20 05/03/20 Range/Units 06:17 06:25 06:25 WBC 15.33 H (4.0-11.0) K/uL RBC 4.18 L (4.50-5.90) M/uL Hgb 12.7 L (13.0-17.0) g/dL Hct 37.9 L (38.0-50.0) % MCV 90.7 (80.0-98.0) fL MCH 30.4 (27.0-32.0) pg MCHC 33.5 (31.0-37.0) g/dL RDW Std Deviation 46.5 (28.0-62.0) fl RDW Coeff of Len 14 (11.0-15.0) % Plt Count 273 (150-400) K/uL MPV 11.10 (7.40-12.00) fL Neut % (Auto) 69.5 (48.0-80.0) % Lymph % (Auto) 20.7 (16.0-40.0) % Randolph % (Auto) 8.0 (0.0-15.0) % Eos % (Auto) 1.6 (0.0-7.0) % Baso % (Auto) 0.2 (0.0-1.5) % Neut # (Auto) 10.7 H (1.4-5.7) K/uL Lymph # (Auto) 3.2 H (0.6-2.4) K/uL Randolph # (Auto) 1.2 H (0.0-0.8) K/uL Eos # (Auto) 0.3 (0.0-0.7) K/uL Baso # (Auto) 0.0 (0.0-0.1) K/uL Nucleated RBC % 0.0 /100WBC Nucleated RBCs # 0 K/uL Sodium 140 (136-148) mmol/L Potassium 3.8 (3.5-5.1) mmol/L Chloride 106 (98-107) mmol/L Carbon Dioxide 23.4 (21.0-32.0) mmol/L BUN 9 (7.0-18.0) mg/dL Creatinine 1.0 (0.8-1.3) mg/dL Est Cr Clr Drug Dosing 75.91 mL/min Estimated GFR (MDRD) > 60.0 ml/min Glucose 124 H (74-106) mg/dL POC Glucose 120 H (60-110) mg/dL Calcium 8.8 (8.5-10.1) mg/dL Magnesium 2.6 H (1.8-2.4) mg/dL Total Bilirubin 0.3 (0.2-1.0) mg/dL AST 10 L (15-37) IU/L ALT 33 (14-63) IU/L Alkaline Phosphatase 54 (46-116) U/L Total Protein 7.4 (6.4-8.2) g/dL Albumin 3.2 L (3.4-5.0) g/dL Globulin 4.2 H (2.6-4.0) g/dL Albumin/Globulin Ratio 0.8 L (0.9-1.6) Group A Strep (PCR) (NOT DETECT) Result Diagrams: 05/03/20 06:25 05/03/20 06:25 Oscar Results Last 24 hrs: Microbiology 05/01/20 19:54 Aerobic Blood Culture - Preliminary Blood - Venous - Lab Draw NO GROWTH AFTER 1 DAY Anaerobic Blood Culture - Preliminary NO GROWTH AFTER 1 DAY 05/01/20 19:49 Aerobic Blood Culture - Preliminary Blood - Venous NO GROWTH AFTER 1 DAY Anaerobic Blood Culture - Preliminary NO GROWTH AFTER 1 DAY Sepsis Event Note - Evaluation Sepsis Screening Result: No Definite Risk - Focused Exam Vital Signs: Vital Signs Temp Pulse Resp BP Pulse Ox 05/03/20 09:51 36.6 C 90 20 135/79 98 05/03/20 04:00 36.5 C 90 16 117/72 95 05/03/20 00:00 36.7 C 95 16 130/68 95 - Problem List & Annotations (1) HTN (hypertension) SNOMED Code(s): 77538448 Code(s): I10 - ESSENTIAL (PRIMARY) HYPERTENSION Status: Acute Current Visit: Yes (2) HLD (hyperlipidemia) SNOMED Code(s): 05418702 Code(s): E78.5 - HYPERLIPIDEMIA, UNSPECIFIED Status: Acute Current Visit: Yes (3) Sleep apnea SNOMED Code(s): 69338597 Code(s): G47.30 - SLEEP APNEA, UNSPECIFIED Status: Acute Current Visit: Yes (4) Obesity SNOMED Code(s): 451834669, 443358959 Code(s): E66.9 - OBESITY, UNSPECIFIED Status: Acute Current Visit: Yes (5) Diabetes mellitus SNOMED Code(s): 49675098 Code(s): E11.9 - TYPE 2 DIABETES MELLITUS WITHOUT COMPLICATIONS Status: Acute Current Visit: Yes (6) GERD (gastroesophageal reflux disease) SNOMED Code(s): 811240093 Code(s): K21.9 - GASTRO-ESOPHAGEAL REFLUX DISEASE WITHOUT ESOPHAGITIS Status: Acute Current Visit: Yes (7) Community acquired pneumonia SNOMED Code(s): 616655332 Code(s): J18.9 - PNEUMONIA, UNSPECIFIED ORGANISM Status: Acute Current Visit: Yes Qualifiers: Laterality: left Lung location: lower lobe of lung Qualified Code(s): J18.9 - Pneumonia, unspecified organism (8) Sepsis SNOMED Code(s): 10974059 Code(s): A41.9 - SEPSIS, UNSPECIFIED ORGANISM Status: Acute Current Visit: Yes Qualifiers: Sepsis type: sepsis due to unspecified organism Sepsis acute organ dysfunction status: without acute organ dysfunction Qualified Code(s): A41.9 - Sepsis, unspecified organism - Problem List Review Problem List Initiated/Reviewed/Updated: Yes - My Orders Last 24 Hours: My Active Orders 05/03/20 21:00 VANCOMYCIN TROUGH [CHEM] Routine - Plan Plan:: 50 y/o M admitted for sepsis secondary to LLL pneumonia 1.Pneumonia possible aspiration/sepsis -Sepsis resolved, leucocytosis improving -cont IV vancomycin and IV zosyn -Blood cultures pending - sore throat resolved and jaw soreness has improved today 2. Hypertension -slowly restart tomorrow 3. DM type II -Continue insulin hold oral diabetic medication -NovoLog sliding scale -ADA diet VTE prophylaxis: Lovenox: GI prophylaxis; Protonix CODE STATUS: Full code Dispo: 2 to 3 days pending improvement
[2020-05-04] MEDS: Piperacillin/Tazobactam 4.5 GM in Sodium Chloride 0.9% 100 ML IV SCH ×2 (01:00→08:20)
[2020-05-04] MEDS: Metoprolol Tartrate 25 MG Tab PO SCH ×2 (01:05→09:31)
[2020-05-04] MEDS: Pravastatin 40 MG Tab PO SCH (01:05)
[2020-05-04] MEDS: Enoxaparin 40 MG/0.4 ML Syringe SUBCUT SCH (01:06)
[2020-05-04] MEDS: Lactated Ringers 1,000 ML IV SCH ×3 (02:25→10:32)
[2020-05-04] MEDS: VANCOmycin 1.75 GM/350 ML 1.75 GM in Premix Bag 1 BAG IV SCH ×2 (02:39→09:31)
[2020-05-04] MEDS ORDERED: Piperacillin/Tazobactam 4.5 GM in Sodium Chloride 0.9% 100 ML IV SCH (06:06)
[2020-05-04 07:14] LABS: BLOOD UREA NITROGEN,BUN 8 mg/dL (7.0-18.0); CHLORIDE,CL 107 mmol/L (98-107); GLUCOSE RANDOM 96 mg/dL (74-106); POTASSIUM,K 3.9 mmol/L (3.5-5.1); SODIUM,NA 141 mmol/L (136-148)
[2020-05-04 07:25] LABS: CARBON DIOXIDE,CO2 25.3 mmol/L (21.0-32.0)
[2020-05-04] MEDS ORDERED: Lansoprazole 30 MG Orally Disintegrating Tab.CR PO SCH (07:30)
[2020-05-04] MEDS: Insulin Aspart 100 Units/ML 3 ML Pen SUBCUT SCH ×2 (07:45→12:08)
[2020-05-04] MEDS: Pantoprazole 40 MG Tab.CR PO SCH (08:08)
[2020-05-04] MEDS ORDERED: Magnesium Sulfate/Water 2 GM/50 ML BAG IV ONE (09:46)
--- NOTE | 2020-05-04 10:47 | PCM.DCSUM1 ---
Discharge Summary - Hospital Course Diagnosis: Stroke: No - Discharge Data Discharge Date: 05/04/20 Discharge Disposition: Home, Self-Care 01 Condition: Good - Referral to Home Health Primary Care Physician: PCP None - Discharge Diagnosis/Problem(s) (1) HTN (hypertension) SNOMED Code(s): 44780915 ICD Code: I10 - ESSENTIAL (PRIMARY) HYPERTENSION Status: Acute Current Visit: Yes (2) HLD (hyperlipidemia) SNOMED Code(s): 60973964 ICD Code: E78.5 - HYPERLIPIDEMIA, UNSPECIFIED Status: Acute Current Visit: Yes (3) Sleep apnea SNOMED Code(s): 81056145 ICD Code: G47.30 - SLEEP APNEA, UNSPECIFIED Status: Acute Current Visit: Yes (4) Obesity SNOMED Code(s): 277342543, 136346931 ICD Code: E66.9 - OBESITY, UNSPECIFIED Status: Acute Current Visit: Yes (5) Diabetes mellitus SNOMED Code(s): 58896976 ICD Code: E11.9 - TYPE 2 DIABETES MELLITUS WITHOUT COMPLICATIONS Status: Acute Current Visit: Yes (6) GERD (gastroesophageal reflux disease) SNOMED Code(s): 220715566 ICD Code: K21.9 - GASTRO-ESOPHAGEAL REFLUX DISEASE WITHOUT ESOPHAGITIS Status: Acute Current Visit: Yes (7) Community acquired pneumonia SNOMED Code(s): 343390415 ICD Code: J18.9 - PNEUMONIA, UNSPECIFIED ORGANISM Status: Acute Current Visit: Yes Qualifiers: Laterality: left Lung location: lower lobe of lung Qualified Code(s): J18.9 - Pneumonia, unspecified organism (8) Sepsis SNOMED Code(s): 46997320 ICD Code: A41.9 - SEPSIS, UNSPECIFIED ORGANISM Status: Acute Current Visit: Yes Qualifiers: Sepsis type: sepsis due to unspecified organism Sepsis acute organ dysfunction status: without acute organ dysfunction Qualified Code(s): A41.9 - Sepsis, unspecified organism - Discharge Plan *PRESCRIPTION DRUG MONITORING PROGRAM REVIEWED*: No *COPY OF PRESCRIPTION DRUG MONITORING REPORT IN PATIENT SOO: No Prescriptions/Med Rec: Phenol [Chloraseptic Throat [place]] 1 spray MUCMEM Q2H PRN #1 bottle PRN Reason: Sore Throat levoFLOXacin [Levaquin] 750 mg PO DAILY #10 tab Home Medications: Home Meds Exenatide Microspheres [Bydureon Pen] 2 mg SUBCUT WEEKLY 03/03/20 [History] Lansoprazole 15 mg PO QAM 03/03/20 [History] Metoprolol Tartrate 25 mg PO BID 03/03/20 [History] Olmesartan Medoxomil 40 mg PO QAM 03/03/20 [History] Pravastatin Sodium 80 mg PO BEDTIME 03/03/20 [History] amLODIPine Besylate [Amlodipine Besylate] 10 mg PO QAM 03/03/20 [History] hydroCHLOROthiazide [Hydrochlorothiazide] 50 mg PO DAILY 03/03/20 [History] metFORMIN HCl [Metformin HCl] 500 mg PO BID 03/03/20 [History] Insulin Glargine,Hum.Rec.Anlog [Lantus Solostar] 50 unit SQ BID 04/25/20 [History] Zolpidem [Ambien] 5 mg PO BEDTIME PRN 05/02/20 [History] Phenol [Chloraseptic Throat [place]] 1 spray MUCMEM Q2H PRN #1 bottle 05/04/20 [Rx] levoFLOXacin [Levaquin] 750 mg PO DAILY #10 tab 05/04/20 [Rx] Patient Handouts: Hypertension, Adult, [id number], Community-Acquired Pneumonia, Adult Referrals: Avelina Spain NP [Nurse Practitioner] - 05/13/20 8:30 am - Patient Data Vitals - Most Recent: Last Vital Signs Temp 37.0 C 05/04/20 08:00 Pulse 80 05/04/20 09:31 Resp 16 05/04/20 08:00 BP 126/79 05/04/20 09:31 Pulse Ox 96 05/04/20 08:00 Weight - Most Recent: 121.361 kg I&O - Last 24 hours: Intake & Output 05/03/20 05/04/20 05/04/20 22:59 06:59 14:59 Intake Total 900 650 Output Total 1750 800 Balance -850 -150 Lab Results - Last 24 hrs: Laboratory Results - last 24 hr 05/03/20 05/03/20 05/03/20 Range/Units 11:51 17:36 21:04 WBC (4.0-11.0) K/uL RBC (4.50-5.90) M/uL Hgb (13.0-17.0) g/dL Hct (38.0-50.0) % MCV (80.0-98.0) fL MCH (27.0-32.0) pg MCHC (31.0-37.0) g/dL RDW Std Deviation (28.0-62.0) fl RDW Coeff of Len (11.0-15.0) % Plt Count (150-400) K/uL MPV (7.40-12.00) fL Neut % (Auto) (48.0-80.0) % Lymph % (Auto) (16.0-40.0) % Morrill % (Auto) (0.0-15.0) % Eos % (Auto) (0.0-7.0) % Baso % (Auto) (0.0-1.5) % Neut # (Auto) (1.4-5.7) K/uL Lymph # (Auto) (0.6-2.4) K/uL Morrill # (Auto) (0.0-0.8) K/uL Eos # (Auto) (0.0-0.7) K/uL Baso # (Auto) (0.0-0.1) K/uL Nucleated RBC % /100WBC Nucleated RBCs # K/uL Sodium (136-148) mmol/L Potassium (3.5-5.1) mmol/L Chloride (98-107) mmol/L Carbon Dioxide (21.0-32.0) mmol/L BUN (7.0-18.0) mg/dL Creatinine (0.8-1.3) mg/dL Est Cr Clr Drug Dosing mL/min Estimated GFR (MDRD) ml/min Glucose (74-106) mg/dL POC Glucose 103 105 (60-110) mg/dL Calcium (8.5-10.1) mg/dL Phosphorus (2.6-4.7) mg/dL Magnesium (1.8-2.4) mg/dL Vancomycin Trough 13.1 H (5.0-10.0) ug/mL 05/04/20 05/04/20 05/04/20 Range/Units 06:00 06:00 06:51 WBC 12.92 H (4.0-11.0) K/uL RBC 3.98 L (4.50-5.90) M/uL Hgb 12.0 L (13.0-17.0) g/dL Hct 35.9 L (38.0-50.0) % MCV 90.2 (80.0-98.0) fL MCH 30.2 (27.0-32.0) pg MCHC 33.4 (31.0-37.0) g/dL RDW Std Deviation 46.2 (28.0-62.0) fl RDW Coeff of Len 14 (11.0-15.0) % Plt Count 285 (150-400) K/uL MPV 10.80 (7.40-12.00) fL Neut % (Auto) 65.2 (48.0-80.0) % Lymph % (Auto) 24.5 (16.0-40.0) % Morrill % (Auto) 7.8 (0.0-15.0) % Eos % (Auto) 2.3 (0.0-7.0) % Baso % (Auto) 0.2 (0.0-1.5) % Neut # (Auto) 8.4 H (1.4-5.7) K/uL Lymph # (Auto) 3.2 H (0.6-2.4) K/uL Morrill # (Auto) 1.0 H (0.0-0.8) K/uL Eos # (Auto) 0.3 (0.0-0.7) K/uL Baso # (Auto) 0.0 (0.0-0.1) K/uL Nucleated RBC % 0.0 /100WBC Nucleated RBCs # 0 K/uL Sodium 141 (136-148) mmol/L Potassium 3.9 (3.5-5.1) mmol/L Chloride 107 (98-107) mmol/L Carbon Dioxide 25.3 (21.0-32.0) mmol/L BUN 8 (7.0-18.0) mg/dL Creatinine 0.8 (0.8-1.3) mg/dL Est Cr Clr Drug Dosing 94.88 mL/min Estimated GFR (MDRD) > 60.0 ml/min Glucose 96 (74-106) mg/dL POC Glucose 92 (60-110) mg/dL Calcium 8.5 (8.5-10.1) mg/dL Phosphorus 3.3 (2.6-4.7) mg/dL Magnesium 1.7 L (1.8-2.4) mg/dL Vancomycin Trough (5.0-10.0) ug/mL ENIO Results - Last 24 hrs: Microbiology 05/01/20 19:54 Aerobic Blood Culture - Preliminary Blood - Venous - Lab Draw NO GROWTH AFTER 2 DAYS Anaerobic Blood Culture - Preliminary NO GROWTH AFTER 2 DAYS 05/01/20 19:49 Aerobic Blood Culture - Preliminary Blood - Venous NO GROWTH AFTER 2 DAYS Anaerobic Blood Culture - Preliminary NO GROWTH AFTER 2 DAYS Med Orders - Current: Current Medications Acetaminophen (Tylenol) 650 mg PO Q4H PRN PRN Reason: Pain (Mild 1-3)/fever Last Admin: 05/02/20 22:05 Dose: 650 mg Documented by: Albuterol/Ipratropium (Duoneb 3.0-0.5 Mg/3 Ml) 3 ml NEB Q4HRRT PRN PRN Reason: Shortness Of Breath/wheezing Dextrose/Water (Dextrose 50% In Water) 50 ml IV ASDIRECTED PRN PRN Reason: Hypoglycemia Enoxaparin Sodium (Lovenox) 40 mg SUBCUT Q24H [facility] Last Admin: 05/04/20 01:06 Dose: 40 mg Documented by: Glucagon (Glucagen) 1 mg IM ASDIRECTED PRN PRN Reason: Hypoglycemia Vancomycin HCl 1.75 gm/ Premix 350 mls @ 233.333 mls/hr IV Q12H [facility] Last Admin: 05/04/20 09:31 Dose: 233.333 mls/hr Documented by: Lactated Ringer's (Ringers, Lactated) 1,000 mls @ 150 mls/hr IV Q6H [facility] Last Admin: 05/04/20 10:32 Dose: Not Given Documented by: Piperacillin Sod/Tazobactam (Sod 4.5 gm/ Sodium Chloride) 100 mls @ 100 mls/hr IV Q6H [facility] Last Admin: 05/04/20 08:08 Dose: 100 mls/hr Documented by: Insulin Aspart (Novolog) 0 unit SUBCUT TIDAC [facility]; Protocol Last Admin: 05/04/20 07:45 Dose: Not Given Documented by: Lansoprazole (Prevacid Solutab) 15 mg PO ACBREAKFAST [facility] Last Admin: 05/04/20 08:09 Dose: 15 mg Documented by: Metoprolol Tartrate (Lopressor) 25 mg PO BID [facility] Last Admin: 05/04/20 09:31 Dose: 25 mg Documented by: Ondansetron HCl (Zofran) 4 mg IVPUSH Q4H PRN PRN Reason: Nausea/Vomiting Pantoprazole Sodium (Protonix) 40 mg PO ACBREAKFAST [facility] Last Admin: 05/04/20 08:08 Dose: 40 mg Documented by: Zolpidem 5 Mg 1 each PO BEDTIME PRN PRN Reason: Sleep Phenol/Menthol (Chloraseptic Throat [place]) 0 ml MUCMEM Q2H PRN PRN Reason: Sore Throat Pravastatin Sodium (Pravachol) 80 mg PO BEDTIME [facility] Last Admin: 05/04/20 01:05 Dose: 80 mg Documented by: Vancomycin HCl (Pharmacy To Dose - Vancomycin) 1 dose .XX ASDIRECTED [facility] Discontinued Medications Sodium Chloride (Normal Saline) 1,000 mls @ 999 mls/hr IV BOLUS ONE Stop: 05/01/20 19:32 Last Admin: 05/01/20 18:37 Dose: 999 mls/hr Documented by: Sodium Chloride (Normal Saline) 1,000 mls @ 999 mls/hr IV STAT ONE Stop: 05/01/20 20:17 Last Admin: 05/01/20 19:51 Dose: 999 mls/hr Documented by: Piperacillin Sod/Tazobactam (Sod 3.375 gm/ Sodium Chloride) 50 mls @ 100 mls/hr IV ONETIME ONE Stop: 05/01/20 19:46 Last Admin: 05/01/20 19:26 Dose: Not Given Documented by: Vancomycin HCl 1.5 gm/ Sodium (Chloride) 500 mls @ 333 mls/hr IV NOW STA Stop: 05/01/20 20:49 Last Admin: 05/01/20 20:15 Dose: Not Given Documented by: Piperacillin Sod/Tazobactam (Sod 4.5 gm/ Sodium Chloride) 100 mls @ 100 mls/hr IV ONETIME ONE Stop: 05/01/20 20:19 Last Admin: 05/01/20 19:51 Dose: 100 mls/hr Documented by: Vancomycin HCl (Vancomycin 1.5 Gm/300 Ml) 300 mls @ 199.815 mls/hr IV NOW STA Stop: 05/01/20 21:40 Last Admin: 05/01/20 20:51 Dose: 199.815 mls/hr Documented by: Sodium Chloride (Normal Saline) 1,000 mls @ 125 mls/hr IV STAT [facility] Last Infusion: 05/01/20 22:34 Dose: 0 mls/hr Documented by: Lactated Ringer's (Ringers, Lactated) 1,000 mls @ 200 mls/hr IV ASDIRECTED [facility] Last Admin: 05/02/20 10:14 Dose: 200 mls/hr Documented by: Piperacillin Sod/Tazobactam (Sod 3.375 gm/ Sodium Chloride) 50 mls @ 100 mls/hr IV Q8H MANOJ Lactated Ringer's (Ringers, Lactated) 1,000 mls @ 999 mls/hr IV .BOLUS ONE Stop: 05/01/20 23:23 Last Admin: 05/01/20 22:33 Dose: 999 mls/hr Documented by: Piperacillin Sod/Tazobactam (Sod 4.5 gm/ Sodium Chloride) 100 mls @ 100 mls/hr IV Q6H [facility] Last Admin: 05/04/20 08:20 Dose: Not Given Documented by: Vancomycin HCl 1.75 gm/ Sodium (Chloride) 500 mls @ 333.333 mls/hr IV Q12H [facility] Last Admin: 05/02/20 10:41 Dose: Not Given Documented by: Magnesium Sulfate (Magnesium Sulfate In Water 4 Gm/100 Ml) 4 gm in 100 mls @ 3 3.333 mls/hr IV ONETIME ONE Stop: 05/02/20 10:49 Last Admin: 05/02/20 08:20 Dose: 33.333 mls/hr Documented by: Magnesium Sulfate (Magnesium Sulfate In Water 2 Gm/50 Ml) 2 gm in 50 mls @ 50 mls/hr IV ONETIME ONE Stop: 05/04/20 10:45 Insulin Aspart (Novolog) 0 unit SUBCUT Q6H [facility]; Protocol Last Admin: 05/02/20 13:00 Dose: Not Given Documented by: Iopamidol (Isovue Multipack-370 (76%)) 100 ml IVPUSH ONETIME STA Stop: 05/01/20 20:19 Last Admin: 05/01/20 20:19 Dose: 100 ml Documented by: Ondansetron HCl (Zofran) 4 mg IVPUSH ONETIME ONE Stop: 05/01/20 18:37 Last Admin: 05/01/20 19:09 Dose: 4 mg Documented by:
== END 2020-05-04 13:15 | disposition home or self-care (01) | DRG 871 ==
LOC: MW.ED 17:53 → MW.ICU 20:55 → MW.MS 05-02 18:20
PROVIDERS: ADMIT Student in an Organized Health Care Education/Training Program; ATTEND Student in an Organized Health Care Education/Training Program
DX: A41.9 Sepsis, unspecified organism (principal); J18.9 Pneumonia, unspecified organism; K21.9 Gastro-esophageal reflux disease without esophagitis; E11.9 Type 2 diabetes mellitus without complications; E66.9 Obesity, unspecified; E78.5 Hyperlipidemia, unspecified; I10 Essential (primary) hypertension; G47.33 Obstructive sleep apnea (adult) (pediatric); H54.7 Unspecified visual loss; E78.00 Pure hypercholesterolemia, unspecified; M19.90 Unspecified osteoarthritis, unspecified site; Z96.652 Presence of left artificial knee joint; Z90.89 Acquired absence of other organs; Z79.4 Long term (current) use of insulin; Z79.899 Other long term (current) drug therapy; Z20.822 Contact with and (suspected) exposure to COVID-19
CPT/HCPCS: 0240U; 36415; 71045; 71045-26; 74177; 74177-26; 80048; 80053; 80202; 81003; 82962; 83605; 83690; 83735; 84100; 84484; 85025; 87040; 87651-QW; 93005; 93010; 96365; 96375; 99285; 99285-25; A9270-GY; J1650; J1815-GY; J2405; J2543; J3370; J3475; J7030; J7120; Q9967

== ENCOUNTER 2020-07-19 14:27 | Observation (INO) | payer MEDICAID ==
[2020-07-19] MEDS ORDERED: Sodium Chloride 0.9% 1,000 ML IV STA ×2 (14:58→16:33)
[2020-07-19] MEDS ORDERED: Sodium Chloride 0.9% 2.5 ML Syringe FLUSH PRN (15:08)
[2020-07-19] MEDS ORDERED: Sodium Chloride 0.9% 10 ML Syringe FLUSH PRN (15:08)
--- NOTE | 2020-07-19 15:10 | EDM.PDOC ---
ED HPI GENERAL MEDICAL PROBLEM - General Chief Complaint: General Stated Complaint: NOT FEELING WELL DIZZY Time Seen by Provider: 07/19/20 14:39 - History of Present Illness INITIAL COMMENTS - FREE TEXT/NARRATIVE: History of present illness: [] The patient feels weak. He has vomited about twice a week. He feels warm. Review of systems: As per history of present illness and below otherwise all systems reviewed and negative. He had surgery 6 weeks ago. He was admitted overnight the beginning of April for pneumonia. The surgery was delayed a week. Past medical history: As per history of present illness and as reviewed below otherwise noncontributory. Surgical history: As per history of present illness and as reviewed below otherwise noncontributory. Social history: No reported history of drug or alcohol abuse. Family history: As per history of present illness and as reviewed below otherwise noncontributory. Physical exam: Constitutional - well developed, well-nourished and in no acute distress HEENT - normocephalic, no evidence of trauma - external nose and mouth normal - no mass in neck and no JVD - mucosae moist EYES - full EOM, PERRL, no icterus - no evidence of inflammation, injection, or drainage Respiratory - no respiratory distress, equal bilateral expansion, lungs clear to auscultation and no abnormal lung sounds Cardiovascular - Regular Rhythm with S1 and S2 appreciated and no murmur, gallop or rub. GI - abdomen soft without distension or organomegaly - normal bowel sounds - no guard or rebound Musculoskeletal left knee is somewhat warm. There is an incision in the anterior knee that is completely intact except for very superficial dehiscence at the very proximal edge. This was cultured on the seventh of this month. It grew microorganism that was sensitive to Cipro and he had his antibiotic changed to Cipro at that time. It is also sensitive to Zosyn. Otherwise no gross deformity of long bones or joints - no tenderness, swelling or edema Neurologic - Alert and oriented times four - CN II-XII grossly intact - motor sensory and coordination symmetrically normal Psychiatric - appropriate mood and affect with normal thought content Hematologic - No petechiae or purpura - mucosa appropriate color and sclera not pale - normal nail bed color and refill Integument - no rash or evidence of trauma - normal turgor Diagnostics: [] Therapeutics: [] Impression: [] Plan: [] Definitive disposition and diagnosis as appropriate pending reevaluation and review of above. Left Knee Pain Score (Numeric/FACES): 6 - Related Data Allergies Allergy/AdvReac Type Severity Reaction Status Date / Time No Known Allergies Allergy Verified 07/19/20 14:43 Home Meds: Home Meds Exenatide Microspheres [Bydureon Pen] 2 mg SUBCUT WEEKLY 03/03/20 [History] Lansoprazole 15 mg PO QAM 03/03/20 [History] Metoprolol Tartrate 25 mg PO BID 03/03/20 [History] Olmesartan Medoxomil 40 mg PO QAM 03/03/20 [History] Pravastatin Sodium 80 mg PO BEDTIME 03/03/20 [History] amLODIPine Besylate [Amlodipine Besylate] 10 mg PO QAM 03/03/20 [History] hydroCHLOROthiazide [Hydrochlorothiazide] 50 mg PO DAILY 03/03/20 [History] metFORMIN HCl [Metformin HCl] 500 mg PO BID 03/03/20 [History] Insulin Glargine,Hum.Rec.Anlog [Lantus Solostar] 50 unit SQ BID 04/25/20 [History] Zolpidem [Ambien] 5 mg PO BEDTIME PRN 05/02/20 [History] levoFLOXacin [Levaquin] 750 mg PO DAILY #10 tab 05/04/20 [Rx] phenoL [Chloraseptic Throat Mcgehee] 1 spray MUCMEM Q2H PRN #1 bottle 05/04/20 [Rx] Past Medical History HEENT History: Reports: Other (See Below) Other HEENT History: wears glasses Cardiovascular History: Reports: High Cholesterol, Hypertension Respiratory History: Reports: Sleep Apnea Other Respiratory History: uses CPAP Gastrointestinal History: Reports: GERD Genitourinary History: Reports: None Musculoskeletal History: Reports: Fracture, Osteoarthritis Other Musculoskeletal History: hx fx arm Neurological History: Reports: None Psychiatric History: Reports: None Endocrine/Metabolic History: Reports: Diabetes, Type II, IDDM, Obesity/BMI 30+ Hematologic History: Reports: None Immunologic History: Reports: None Oncologic (Cancer) History: Reports: None Dermatologic History: Reports: None - Infectious Disease History Infectious Disease History: Reports: Chicken Pox - Past Surgical History Head Surgeries/Procedures: Reports: None HEENT Surgical History: Reports: Tonsillectomy Cardiovascular Surgical History: Reports: None Respiratory Surgical History: Reports: None GI Surgical History: Reports: Hernia, Abdominal Other GI Surgeries/Procedures: Umbilical hernia repair Male Surgical History: Reports: None Endocrine Surgical History: Reports: None Neurological Surgical History: Reports: None Musculoskeletal Surgical History: Reports: Knee Replacement, Other (See Below) Other Musculoskeletal Surgeries/Procedures:: hx left knee arthroplasty 04/19, left knee manipulation & tendon repair right leg Oncologic Surgical History: Reports: None Dermatological Surgical History: Reports: None Social & Family History - Family History Family Medical History: No Pertinent Family History - Tobacco Use Tobacco Use Status *Q: Never Tobacco User Second Hand Smoke Exposure: No - Caffeine Use Caffeine Use: Reports: None - Recreational Drug Use Recreational Drug Use: No ED ROS GENERAL - Review of Systems Review Of Systems: Comprehensive ROS is negative, except as noted in HPI. ED EXAM, GENERAL - Physical Exam Exam: See Below Free Text/Narrative:: My physical exam is in the HPI #1 Interpretation EKG Interpretation Comments: EKG done at 1457 shows atrial fibrillation with a rate of 96 and the axis XVII. The QRS ST and T are within normal limits. When compared to 05/01/[address] and T are similar but atrial fibrillation is doing impression new onset atrial fibrillation Course - Vital Signs Text/Narrative:: 1735 patient remained stable but blood pressure is low. Patient is in atrial fib which is new onset. Patient had a lactic acidosis that responded to fluids. Patient had a white blood cell count with no obvious source but possible cellulitis in the left anterior leg with minimal drainage from the superficial dehiscence in the top few millimeters of the wound over the incision. Discussed with Dr. Mosley and admitted for observation and further evaluation and care. L Last Recorded V/S: Last Vital Signs Temp 36.4 C 07/19/20 14:43 Pulse 98 07/19/20 17:22 Resp 18 07/19/20 17:22 BP 88/44 L 07/19/20 17:22 Pulse Ox 98 07/19/20 17:22 - Orders/Labs/Meds Orders: Active Orders 24 hr Category Date Time Status Admission Status [Patient Status] [ADT] Stat ADT 07/19/20 17:33 Ordered EKG Documentation Completion [RC] AM Care 07/19/20 15:08 Active CORONAVIRUS COVID-19 GLORIA [MOLEC] Stat Lab 07/19/20 17:11 Ordered CULTURE BLOOD [BC] Stat Lab 07/19/20 14:53 Received CULTURE BLOOD [BC] Stat Lab 07/19/20 15:05 Received REFLEX LACTIC ACID YES OR NO [CHEM] Routine Lab 07/19/20 16:12 Received UA W/ENIO RFLX IF INDICATED [URIN] Stat Lab 07/19/20 15:08 Ordered Sodium Chloride 0.9% [Saline Flush] Med 07/19/20 15:08 Active 10 ml FLUSH ASDIRECTED PRN Sodium Chloride 0.9% [Saline Flush] Med 07/19/20 15:08 Active 2.5 ml FLUSH ASDIRECTED PRN Blood Culture x2 Reflex Set [OM.PC] Stat Oth 07/19/20 15:08 Ordered Saline Lock Insert [OM.PC] Stat Ot 07/19/20 15:08 Ordered Medication Orders Sodium Chloride (Sodium Chloride 0.9% 10 Ml Syringe) 10 ml FLUSH ASDIRECTED PRN PRN Reason: Keep Vein Open Last Admin: 07/19/20 15:21 Dose: 10 ml Documented by: DODIE Sodium Chloride (Sodium Chloride 0.9% 2.5 Ml Syringe) 2.5 ml FLUSH ASDIRECTED PRN PRN Reason: Keep Vein Open Last Admin: 07/19/20 15:21 Dose: 2.5 ml Documented by: DODIE Labs: Laboratory Tests 07/19/20 07/19/20 07/19/20 Range/Units 14:52 14:52 15:25 WBC 12.07 H (4.0-11.0) K/uL RBC 4.50 (4.50-5.90) M/uL Hgb 14.4 (13.0-17.0) g/dL Hct 42.1 (38.0-50.0) % MCV 93.6 (80.0-98.0) fL MCH 32.0 (27.0-32.0) pg MCHC 34.2 (31.0-37.0) g/dL RDW Std Deviation 49.0 (28.0-62.0) fl RDW Coeff of Len 14 (11.0-15.0) % Plt Count 322 (150-400) K/uL MPV 11.40 (7.40-12.00) fL Neut % (Auto) 61.6 (48.0-80.0) % Lymph % (Auto) 27.8 (16.0-40.0) % Sequoyah % (Auto) 7.8 (0.0-15.0) % Eos % (Auto) 2.6 (0.0-7.0) % Baso % (Auto) 0.2 (0.0-1.5) % Neut # (Auto) 7.4 H (1.4-5.7) K/uL Lymph # (Auto) 3.4 H (0.6-2.4) K/uL Sequoyah # (Auto) 0.9 H (0.0-0.8) K/uL Eos # (Auto) 0.3 (0.0-0.7) K/uL Baso # (Auto) 0.0 (0.0-0.1) K/uL Nucleated RBC % 0.0 /100WBC Nucleated RBCs # 0 K/uL Sodium 138 (136-148) mmol/L Potassium 4.3 (3.5-5.1) mmol/L Chloride 103 (98-107) mmol/L Carbon Dioxide 27.7 (21.0-32.0) mmol/L BUN 20 H (7.0-18.0) mg/dL Creatinine 1.7 H (0.8-1.3) mg/dL Est Cr Clr Drug Dosing 44.72 mL/min Estimated GFR (MDRD) 42.7 ml/min Glucose 132 H (74-106) mg/dL Lactic Acid 2.5 H* (0.4-2.0) mmol/L Calcium 8.8 (8.5-10.1) mg/dL Total Bilirubin 0.2 (0.2-1.0) mg/dL AST 21 (15-37) IU/L ALT 42 (14-63) IU/L Alkaline Phosphatase 78 (46-116) U/L Total Protein 7.8 (6.4-8.2) g/dL Albumin 3.7 (3.4-5.0) g/dL Globulin 4.1 H (2.6-4.0) g/dL Albumin/Globulin Ratio 0.9 (0.9-1.6) // Range/Units 16:50 WBC (4.0-11.0) K/uL RBC (4.50-5.90) M/uL Hgb (13.0-17.0) g/dL Hct (38.0-50.0) % MCV (80.0-98.0) fL MCH (27.0-32.0) pg MCHC (31.0-37.0) g/dL RDW Std Deviation (28.0-62.0) fl RDW Coeff of Len (11.0-15.0) % Plt Count (150-400) K/uL MPV (7.40-12.00) fL Neut % (Auto) (48.0-80.0) % Lymph % (Auto) (16.0-40.0) % Sequoyah % (Auto) (0.0-15.0) % Eos % (Auto) (0.0-7.0) % Baso % (Auto) (0.0-1.5) % Neut # (Auto) (1.4-5.7) K/uL Lymph # (Auto) (0.6-2.4) K/uL Sequoyah # (Auto) (0.0-0.8) K/uL Eos # (Auto) (0.0-0.7) K/uL Baso # (Auto) (0.0-0.1) K/uL Nucleated RBC % /100WBC Nucleated RBCs # K/uL Sodium (136-148) mmol/L Potassium (3.5-5.1) mmol/L Chloride (98-107) mmol/L Carbon Dioxide (21.0-32.0) mmol/L BUN (7.0-18.0) mg/dL Creatinine (0.8-1.3) mg/dL Est Cr Clr Drug Dosing mL/min Estimated GFR (MDRD) ml/min Glucose (74-106) mg/dL Lactic Acid 1.9 (0.4-2.0) mmol/L Calcium (8.5-10.1) mg/dL Total Bilirubin (0.2-1.0) mg/dL AST (15-37) IU/L ALT (14-63) IU/L Alkaline Phosphatase (46-116) U/L Total Protein (6.4-8.2) g/dL Albumin (3.4-5.0) g/dL Globulin (2.6-4.0) g/dL Albumin/Globulin Ratio (0.9-1.6) Meds: Medications Generic Name Dose Route Start Last Admin Trade Name Koryq PRN Reason Stop Dose Admin Sodium Chloride 10 ml 07/19/20 15:08 07/19/20 15:21 Sodium Chloride 0.9% 10 Ml Syringe FLUSH 10 ml ASDIRECTED PRN Administration Keep Vein Open Sodium Chloride 2.5 ml 07/19/20 15:08 07/19/20 15:21 Sodium Chloride 0.9% 2.5 Ml Syringe FLUSH 2.5 ml ASDIRECTED PRN Administration Keep Vein Open Discontinued Medications Generic Name Dose Route Start Last Admin Trade Name Koryq PRN Reason Stop Dose Admin Sodium Chloride 1,000 mls @ 999 mls/hr 07/19/20 14:58 07/19/20 14:59 Normal Saline IV 07/19/20 15:58 999 mls/hr STAT STA Administration Piperacillin Sod/Tazobactam 100 mls @ 100 mls/hr 07/19/20 15:20 07/19/20 15:48 Sod 4.5 gm/ Sodium Chloride IV 07/19/20 16:19 100 mls/hr ONETIME ONE Administration Sodium Chloride 1,000 mls @ 1,000 mls/hr 07/19/20 15:21 07/19/20 15:24 Normal Saline IV 07/19/20 16:20 1,000 mls/hr .Bolus ONE Administration Sodium Chloride 1,000 mls @ 9,999 mls/hr 07/19/20 16:33 07/19/20 16:34 Normal Saline IV 07/19/20 16:38 999 mls/hr STAT STA Infusion Departure - Departure Time of Disposition: 17:35 Disposition: Refer to Observation Condition: Good Clinical Impression: Atrial fibrillation, new onset, Leukocytosis, Cellulitis of left leg, Superficial dehiscence of wound - Discharge Information Forms: ED Department Discharge Sepsis Event Note (ED) - Evaluation Sepsis Screening Result: No Definite Risk - Focused Exam Vital Signs: Vital Signs Temp Pulse Resp BP Pulse Ox 07/19/20 17:22 98 18 88/44 L 98 07/19/20 16:34 94 18 87/57 L 98 07/19/20 16:10 106 H 18 84/40 L 98 07/19/20 15:48 116 H 17 95/46 L 97 07/19/20 15:25 109 H 18 90/52 L 97 07/19/20 15:18 116 H 16 77/52 L 98 07/19/20 14:58 133 H 81/52 L 07/19/20 14:56 130 H 17 81/52 L 97 07/19/20 14:43 36.4 C 99 20 88/53 L 98 - My Orders Last 24 Hours: My Active Orders 07/19/20 14:53 CULTURE BLOOD [BC] Stat 07/19/20 15:05 CULTURE BLOOD [BC] Stat 07/19/20 15:08 EKG Documentation Completion [RC] AM UA W/ENIO RFLX IF INDICATED [URIN] Stat Sodium Chloride 0.9% [Saline Flush] 10 ml FLUSH ASDIRECTED PRN Sodium Chloride 0.9% [Saline Flush] 2.5 ml FLUSH ASDIRECTED PRN Blood Culture x2 Reflex Set [OM.PC] Stat Saline Lock Insert [OM.PC] Stat 07/19/20 16:12 REFLEX LACTIC ACID YES OR NO [CHEM] Routine 07/19/20 17:11 CORONAVIRUS COVID-19 GLORIA [MOLEC] Stat 07/19/20 17:33 Admission Status [Patient Status] [ADT] Stat - Assessment/Plan Last 24 Hours: My Active Orders 07/19/20 14:53 CULTURE BLOOD [BC] Stat 07/19/20 15:05 CULTURE BLOOD [BC] Stat 07/19/20 15:08 EKG Documentation Completion [RC] AM UA W/ENIO RFLX IF INDICATED [URIN] Stat Sodium Chloride 0.9% [Saline Flush] 10 ml FLUSH ASDIRECTED PRN Sodium Chloride 0.9% [Saline Flush] 2.5 ml FLUSH ASDIRECTED PRN Blood Culture x2 Reflex Set [OM.PC] Stat Saline Lock Insert [OM.PC] Stat 07/19/20 16:12 REFLEX LACTIC ACID YES OR NO [CHEM] Routine 07/19/20 17:11 CORONAVIRUS COVID-19 GLORIA [MOLEC] Stat 07/19/20 17:33 Admission Status [Patient Status] [ADT] Stat
[2020-07-19] MEDS ORDERED: Piperacillin/Tazobactam 4.5 GM in Sodium Chloride 0.9% 100 ML IV ONE (15:20)
[2020-07-19] MEDS ORDERED: Sodium Chloride 0.9% 1,000 ML IV ONE (15:21)
[2020-07-19 15:30] LABS: CARBON DIOXIDE,CO2 27.7 mmol/L (21.0-32.0); POTASSIUM,K 4.3 mmol/L (3.5-5.1)
--- NOTE | 2020-07-19 16:05 | CR ---
INDICATION: Possible sepsis, looking for source TECHNIQUE: Chest 1 view. COMPARISON: Chest x-ray 05/01/2020 FINDINGS: The heart is normal in size. The pulmonary vasculature is within normal limits. The lungs are clear. The overlying soft tissues unremarkable. IMPRESSION: No acute process. Dictated by Jeannette Raza MD @ 07/19/2020 4:03:[address] Jeannette Raza @ Jul 19 2020 4:03PM
[2020-07-19] MEDS ORDERED: 50% Dextrose in Water 50 ML Syringe IVPUSH PRN (18:31)
[2020-07-19] MEDS ORDERED: Glucagon,Human Recombinant 1 MG Vial IM PRN ×2 (18:31→22:50)
[2020-07-19] MEDS: Insulin Aspart 100 Units/ML 3 ML Pen SUBCUT SCH (19:17)
[2020-07-19] MEDS ORDERED: 50% Dextrose in Water 50 ML Syringe IV PRN (22:50)
[2020-07-19] MEDS ORDERED: cefTRIAXone 1 GM in Sodium Chloride 0.9% 50 ML IV SCH (23:00)
--- NOTE | 2020-07-19 23:03 | PCM.HP.2 ---
H&P History of Present Illness - General Date of Service: 07/19/20 Admit Problem/Dx: Admission Diagnosis/Problem Admission Diagnosis/Problem Hypotension - History of Present Illness Initial Comments - Free Text/Narative: 50 yo male with pmh of obesity, HTN, RITA, DM, who presented to the ED with several week history of fatigue, weakness, dizziness, and blurred vision. Patient reports he thought his blood sugars were low but they never have been low when he checks them. A week ago patient had nausea, and vomiting. He denies any fevers, chills, or palpitations. In April patient was admitted for pneumonia. Patient reports he has intentionally lost 30 lbs in the last two months. Patient reports that he had run out of his antihypertensive medications and has stopped taken them until several weeks ago he had them refilled around the same time his dizziness got worse. Patient reports he does not check his blood pressure at home. He just finished a course of Ciprofloxacin for superficial cellulitis around his left knee wound. He had revision of his left knee arthroplasty about six weeks ago. He was seen by his orthopedic surgeon three days ago who felt the swelling of his knee was typical at this stage post op. In the ED he was noted to be atrial fibrillation which is new. His heart rate was controlled. His blood pressure was noted to be low at 80s/50s. He was given IV fluids and IV Zosyn in the ED. Left Knee Pain Score (Numeric/FACES): 6 - Related Data Allergies/Adverse Reactions: Allergies Allergy/AdvReac Type Severity Reaction Status Date / Time No Known Allergies Allergy Verified 07/19/20 20:15 Home Medications: Home Meds Exenatide Microspheres [Bydureon Pen] 2 mg SUBCUT WEEKLY 03/03/20 [History] Lansoprazole 15 mg PO QAM 03/03/20 [History] Metoprolol Tartrate 25 mg PO BID 03/03/20 [History] Olmesartan Medoxomil 40 mg PO QAM 03/03/20 [History] Pravastatin Sodium 80 mg PO BEDTIME 03/03/20 [History] amLODIPine Besylate [Amlodipine Besylate] 10 mg PO QAM 03/03/20 [History] hydroCHLOROthiazide [Hydrochlorothiazide] 50 mg PO DAILY 03/03/20 [History] metFORMIN HCl [Metformin HCl] 1,000 mg PO BID 03/03/20 [History] Insulin Glargine,Hum.Rec.Anlog [Lantus Solostar] 10 unit SQ DAILY 04/25/20 [History] Zolpidem [Ambien] 5 mg PO BEDTIME PRN 05/02/20 [History] levoFLOXacin [Levaquin] 750 mg PO DAILY #10 tab 05/04/20 [Rx] phenoL [Chloraseptic Throat [place]] 1 spray MUCMEM Q2H PRN #1 bottle 05/04/20 [Rx] Past Medical History HEENT History: Reports: Other (See Below) Other HEENT History: wears glasses Cardiovascular History: Reports: High Cholesterol, Hypertension Respiratory History: Reports: Sleep Apnea Other Respiratory History: uses CPAP Gastrointestinal History: Reports: GERD Genitourinary History: Reports: None Musculoskeletal History: Reports: Fracture, Osteoarthritis Other Musculoskeletal History: hx fx arm Neurological History: Reports: None Psychiatric History: Reports: None Endocrine/Metabolic History: Reports: Diabetes, Type II, IDDM, Obesity/BMI 30+ Hematologic History: Reports: None Immunologic History: Reports: None Oncologic (Cancer) History: Reports: None Dermatologic History: Reports: None - Infectious Disease History Infectious Disease History: Reports: Chicken Pox - Past Surgical History Head Surgeries/Procedures: Reports: None HEENT Surgical History: Reports: Tonsillectomy Cardiovascular Surgical History: Reports: None Respiratory Surgical History: Reports: None GI Surgical History: Reports: Hernia, Abdominal Other GI Surgeries/Procedures: Umbilical hernia repair Male Surgical History: Reports: None Endocrine Surgical History: Reports: None Neurological Surgical History: Reports: None Musculoskeletal Surgical History: Reports: Knee Replacement, Other (See Below) Other Musculoskeletal Surgeries/Procedures:: hx left knee arthroplasty 04/19, left knee manipulation & tendon repair right leg Oncologic Surgical History: Reports: None Dermatological Surgical History: Reports: None Social & Family History - Family History Family Medical History: No Pertinent Family History - Tobacco Use Tobacco Use Status *Q: Never Tobacco User Second Hand Smoke Exposure: No - Caffeine Use Caffeine Use: Reports: None - Recreational Drug Use Recreational Drug Use: No H&P Review of Systems - Review of Systems: Review Of Systems: Comprehensive ROS is negative, except as noted in HPI. Exam - Exam Exam: See Below - Vital Signs Vital Signs: Last Vital Signs Temp 36.4 C 07/19/20 20:00 Pulse 98 07/19/20 20:00 Resp 18 07/19/20 20:00 BP 105/59 L 07/19/20 20:00 Pulse Ox 98 07/19/20 20:00 Weight: 111.584 kg - Exam General: Alert, Oriented HEENT: Mucosa Moist & Moody Neck: Supple Lungs: Clear to Auscultation, Normal Respiratory Effort Cardiovascular: Regular Rate, Regular Rhythm GI/Abdominal Exam: Soft, Non-Tender Extremities: Other (right knee mildly edematous, no erythema note, small superficiall dehiscence of proximal knee wound, 90 degree angle flextion) - Patient Data Lab Results Last 24 hrs: Laboratory Results - last 24 hr 07/19/20 07/19/20 07/19/20 Range/Units 14:52 14:52 15:25 WBC 12.07 H (4.0-11.0) K/uL RBC 4.50 (4.50-5.90) M/uL Hgb 14.4 (13.0-17.0) g/dL Hct 42.1 (38.0-50.0) % MCV 93.6 (80.0-98.0) fL MCH 32.0 (27.0-32.0) pg MCHC 34.2 (31.0-37.0) g/dL RDW Std Deviation 49.0 (28.0-62.0) fl RDW Coeff of Len 14 (11.0-15.0) % Plt Count 322 (150-400) K/uL MPV 11.40 (7.40-12.00) fL Neut % (Auto) 61.6 (48.0-80.0) % Lymph % (Auto) 27.8 (16.0-40.0) % [place] % (Auto) 7.8 (0.0-15.0) % Eos % (Auto) 2.6 (0.0-7.0) % Baso % (Auto) 0.2 (0.0-1.5) % Neut # (Auto) 7.4 H (1.4-5.7) K/uL Lymph # (Auto) 3.4 H (0.6-2.4) K/uL [place] # (Auto) 0.9 H (0.0-0.8) K/uL Eos # (Auto) 0.3 (0.0-0.7) K/uL Baso # (Auto) 0.0 (0.0-0.1) K/uL Nucleated RBC % 0.0 /100WBC Nucleated RBCs # 0 K/uL Sodium 138 (136-148) mmol/L Potassium 4.3 (3.5-5.1) mmol/L Chloride 103 (98-107) mmol/L Carbon Dioxide 27.7 (21.0-32.0) mmol/L BUN 20 H (7.0-18.0) mg/dL Creatinine 1.7 H (0.8-1.3) mg/dL Est Cr Clr Drug Dosing 44.72 mL/min Estimated GFR (MDRD) 42.7 ml/min Glucose 132 H (74-106) mg/dL POC Glucose (70-99) mg/dL Lactic Acid 2.5 H* (0.4-2.0) mmol/L Calcium 8.8 (8.5-10.1) mg/dL Total Bilirubin 0.2 (0.2-1.0) mg/dL AST 21 (15-37) IU/L ALT 42 (14-63) IU/L Alkaline Phosphatase 78 (46-116) U/L Total Protein 7.8 (6.4-8.2) g/dL Albumin 3.7 (3.4-5.0) g/dL Globulin 4.1 H (2.6-4.0) g/dL Albumin/Globulin Ratio 0.9 (0.9-1.6) Urine Color Urine Appearance Urine pH (5.0-8.0) Ur Specific [place] (1.001-1.035) Urine Protein (NEGATIVE) mg/dL Urine Glucose (UA) (NEGATIVE) mg/dL Urine Ketones (NEGATIVE) mg/dL Urine Occult Blood (NEGATIVE) Urine Nitrite (NEGATIVE) Urine Bilirubin (NEGATIVE) Urine Urobilinogen (<2.0) EU/dL Ur Leukocyte Esterase (NEGATIVE) SARS-CoV-2 RNA (GLORIA) (NEGATIVE) 07/19/20 07/19/20 07/19/20 Range/Units 16:50 17:12 17:58 WBC (4.0-11.0) K/uL RBC (4.50-5.90) M/uL Hgb (13.0-17.0) g/dL Hct (38.0-50.0) % MCV (80.0-98.0) fL MCH (27.0-32.0) pg MCHC (31.0-37.0) g/dL RDW Std Deviation (28.0-62.0) fl RDW Coeff of Len (11.0-15.0) % Plt Count (150-400) K/uL MPV (7.40-12.00) fL Neut % (Auto) (48.0-80.0) % Lymph % (Auto) (16.0-40.0) % Hend[place] % (Auto) (0.0-15.0) % Eos % (Auto) (0.0-7.0) % Baso % (Auto) (0.0-1.5) % Neut # (Auto) (1.4-5.7) K/uL Lymph # (Auto) (0.6-2.4) K/uL [place] # (Auto) (0.0-0.8) K/uL Eos # (Auto) (0.0-0.7) K/uL Baso # (Auto) (0.0-0.1) K/uL Nucleated RBC % /100WBC Nucleated RBCs # K/uL Sodium (136-148) mmol/L Potassium (3.5-5.1) mmol/L Chloride (98-107) mmol/L Carbon Dioxide (21.0-32.0) mmol/L BUN (7.0-18.0) mg/dL Creatinine (0.8-1.3) mg/dL Est Cr Clr Drug Dosing mL/min Estimated GFR (MDRD) ml/min Glucose (74-106) mg/dL POC Glucose (70-99) mg/dL Lactic Acid 1.9 (0.4-2.0) mmol/L Calcium (8.5-10.1) mg/dL Total Bilirubin (0.2-1.0) mg/dL AST (15-37) IU/L ALT (14-63) IU/L Alkaline Phosphatase (46-116) U/L Total Protein (6.4-8.2) g/dL Albumin (3.4-5.0) g/dL Globulin (2.6-4.0) g/dL Albumin/Globulin Ratio (0.9-1.6) Urine Color YELLOW Urine Appearance CLEAR Urine pH 6.0 (5.0-8.0) Ur Specific [place] 1.015 (1.001-1.035) Urine Protein NEGATIVE (NEGATIVE) mg/dL Urine Glucose (UA) NEGATIVE (NEGATIVE) mg/dL Urine Ketones NEGATIVE (NEGATIVE) mg/dL Urine Occult Blood NEGATIVE (NEGATIVE) Urine Nitrite NEGATIVE (NEGATIVE) Urine Bilirubin NEGATIVE (NEGATIVE) Urine Urobilinogen 0.2 (<2.0) EU/dL Ur Leukocyte Esterase NEGATIVE (NEGATIVE) SARS-CoV-2 RNA ([place]ORIA) NEGATIVE (NEGATIVE) 07/19/20 Range/Units 19:03 WBC (4.0-11.0) K/uL RBC (4.50-5.90) M/uL Hgb (13.0-17.0) g/dL Hct (38.0-50.0) % MCV (80.0-98.0) fL MCH (27.0-32.0) pg MCHC (31.0-37.0) g/dL RDW Std Deviation (28.0-62.0) fl RDW Coeff of Len (11.0-15.0) % Plt Count (150-400) K/uL MPV (7.40-12.00) fL Neut % (Auto) (48.0-80.0) % Lymph % (Auto) (16.0-40.0) % [place] % (Auto) (0.0-15.0) % Eos % (Auto) (0.0-7.0) % Baso % (Auto) (0.0-1.5) % Neut # (Auto) (1.4-5.7) K/uL Lymph # (Auto) (0.6-2.4) K/uL [place] # (Auto) (0.0-0.8) K/uL Eos # (Auto) (0.0-0.7) K/uL Baso # (Auto) (0.0-0.1) K/uL Nucleated RBC % /100WBC Nucleated RBCs # K/uL Sodium (136-148) mmol/L Potassium (3.5-5.1) mmol/L Chloride (98-107) mmol/L Carbon Dioxide (21.0-32.0) mmol/L BUN (7.0-18.0) mg/dL Creatinine (0.8-1.3) mg/dL Est Cr Clr Drug Dosing mL/min Estimated GFR (MDRD) ml/min Glucose (74-106) mg/dL POC Glucose 95 (70-99) mg/dL Lactic Acid (0.4-2.0) mmol/L Calcium (8.5-10.1) mg/dL Total Bilirubin (0.2-1.0) mg/dL AST (15-37) IU/L ALT (14-63) IU/L Alkaline Phosphatase (46-116) U/L Total Protein (6.4-8.2) g/dL Albumin (3.4-5.0) g/dL Globulin (2.6-4.0) g/dL Albumin/Globulin Ratio (0.9-1.6) Urine Color Urine Appearance Urine pH (5.0-8.0) Ur Specific [place] (1.001-1.035) Urine Protein (NEGATIVE) mg/dL Urine Glucose (UA) (NEGATIVE) mg/dL Urine Ketones (NEGATIVE) mg/dL Urine Occult Blood (NEGATIVE) Urine Nitrite (NEGATIVE) Urine Bilirubin (NEGATIVE) Urine Urobilinogen (<2.0) EU/dL Ur Leukocyte Esterase (NEGATIVE) SARS-CoV-2 RNA ([place]) (NEGATIVE) Result Diagrams: 07/19/20 14:52 07/19/20 14:52 Sepsis Event Note - Evaluation Sepsis Screening Result: No Definite Risk - Focused Exam Vital Signs: Vital Signs Temp Pulse Resp BP Pulse Ox 07/19/20 20:00 36.4 C 98 18 105/59 L 98 07/19/20 17:56 2.6 C L 91 16 114/75 97 07/19/20 17:22 98 18 88/44 L 98 07/19/20 16:34 94 18 87/57 L 98 07/19/20 16:10 106 H 18 84/40 L 98 07/19/20 15:48 116 H 17 95/46 L 97 07/19/20 15:25 109 H 18 90/52 L 97 07/19/20 15:18 116 H 16 77/52 L 98 07/19/20 14:58 133 H 81/52 L 07/19/20 14:56 130 H 17 81/52 L 97 07/19/20 14:43 36.4 C 99 20 88/53 L 98 Problem List Initiated/Reviewed/Updated: Yes Orders Last 24hrs: Active Orders 24 hr Category Date Time Status Admission Status [Patient Status] [ADT] Stat ADT 07/19/20 17:33 Active EKG Documentation Completion [RC] AM Care 07/19/20 15:08 Active Telemetry Monitoring [Cardiac Monitoring] [RC] Q8H Care 07/19/20 18:55 Active ADA Diabetic [[place] [employer] Diet] [DIET Diet 07/20/20 Dinner Active ] CULTURE BLOOD [BC] Stat Lab 07/19/20 14:53 Received CULTURE BLOOD [BC] Stat Lab 07/19/20 15:05 Received Dextrose 50% in Water Med 07/19/20 22:50 Ordered 50 ml IV ASDIRECTED PRN Dextrose 50% in Water Med 07/19/20 18:31 Active 50 ml IVPUSH ASDIRECTED PRN Glucagon,Human Recombinant [GlucaGen] Med 07/19/20 18:31 Active 1 mg IM ASDIRECTED PRN Glucagon,Human Recombinant [GlucaGen] Med 07/19/20 22:50 Ordered 1 mg IM ASDIRECTED PRN Insulin Aspart [NovoLOG] Med 07/19/20 17:30 Active See Protocol SUBCUT TIDAC Insulin Glarg,Human.Rec.Analog [LantUS Solostar] Med 07/20/20 09:00 Ordered 10 units SUBCUT DAILY Melatonin Med 07/19/20 21:00 Ordered 3 mg PO BEDTIME Pravastatin Sodium [Pravastatin Sodium] Med 07/20/20 21:00 Ordered 80 mg PO BEDTIME Sodium Chloride 0.9% [Saline Flush] Med 07/19/20 15:08 Active 10 ml FLUSH ASDIRECTED PRN Sodium Chloride 0.9% [Saline Flush] Med 07/19/20 15:08 Active 2.5 ml FLUSH ASDIRECTED PRN cefTRIAXone [Rocephin] 1 gm Med 07/19/20 23:00 Ordered Sodium Chloride 0.9% [Normal Saline] 50 ml IV Q24H Blood Culture x2 Reflex Set [OM.PC] Stat Ot 07/19/20 15:08 Ordered Saline Lock Insert [OM.PC] Stat Ot 07/19/20 15:08 Ordered Medication Orders Dextrose/Water (50% Dextrose In Water 50 Ml Syringe) 50 ml IVPUSH ASDIRECTED PRN PRN Reason: Hypoglycemia Dextrose/Water (50% Dextrose In Water 50 Ml Syringe) 50 ml IV ASDIRECTED PRN PRN Reason: Hypoglycemia Glucagon (Glucagon,Human Recombinant 1 Mg Vial) 1 mg IM ASDIRECTED PRN PRN Reason: Hypoglycemia Glucagon (Glucagon,Human Recombinant 1 Mg Vial) 1 mg IM ASDIRECTED PRN PRN Reason: Hypoglycemia Ceftriaxone Sodium 1 gm/ (Sodium Chloride) 50 mls @ 100 mls/hr IV Q24H MANOJ Insulin Aspart (Insulin Aspart 100 Units/Ml 3 Ml Pen) 0 unit SUBCUT TIDAC MANOJ; Protocol Last Admin: 07/19/20 19:17 Dose: Not Given Documented by: HERMRAOlegario Insulin Glargine (Insulin Glargine,Human Rec. Analog 100 Units/Ml 3 Ml Pen) 10 units SUBCUT DAILY [facility] Non-Formulary Medication (Pravastatin Sodium [Pravastatin Sodium]) 80 mg PO BEDTIME MANOJ Sodium Chloride (Sodium Chloride 0.9% 10 Ml Syringe) 10 ml FLUSH ASDIRECTED PRN PRN Reason: Keep Vein Open Last Admin: 07/19/20 15:21 Dose: 10 ml Documented by: DODIE Sodium Chloride (Sodium Chloride 0.9% 2.5 Ml Syringe) 2.5 ml FLUSH ASDIRECTED PRN PRN Reason: Keep Vein Open Last Admin: 07/19/20 15:21 Dose: 2.5 ml Documented by: DODIE Assessment/Plan Comment:: 50 yo male admitted who presented with dizziness and generalized weakness, found to be hypotensive with acute kidney injury. Acute kidney injury may be multifactorial including likely recent history of gastroenteritis as well as hypotension induced by patient's multiple antihypertensive medications and recent weight loss. Patient's knee does not appear infected but will give Rocephin until infection has been ruled out REMI/hypotension: patient has received 3 L of NS in ED, patient is now normotensive, will hold antihypertensive medications DM: lantus 10 daily, ssi, diabetic diet RITA: CPAP at night A.fib: rate controlled, have spoke with patient with need to start anticoagulation and will likely start DOAC.
[2020-07-19] MEDS: Melatonin 3 MG Tab PO SCH (23:21)
[2020-07-20 07:03] LABS: BLOOD UREA NITROGEN,BUN 13 mg/dL (7.0-18.0); CARBON DIOXIDE,CO2 25.6 mmol/L (21.0-32.0); CHLORIDE,CL 103 mmol/L (98-107); GLUCOSE RANDOM 118 mg/dL (74-106); POTASSIUM,K 3.9 mmol/L (3.5-5.1); SODIUM,NA 139 mmol/L (136-148)
[2020-07-20] MEDS: Insulin Aspart 100 Units/ML 3 ML Pen SUBCUT SCH ×3 (07:34→16:54)
[2020-07-20] MEDS ORDERED: Metoprolol Tartrate 25 MG Tab PO ONE ×2 (08:15→11:00)
[2020-07-20] MEDS: Insulin Glargine,Human Rec. Analog 100 Units/ML 3 ML Pen SUBCUT SCH (08:17)
[2020-07-20] MEDS ORDERED: Magnesium Sulfate/Water 2 GM/50 ML Premix Bag IV ONE (10:29)
--- NOTE | 2020-07-20 10:35 | PCM.PN ---
- General Info Date of Service: 07/20/20 - Review of Systems Systems Review Comment:: feeling much better, no dizziness, no shortness of breath, no palpitations. - Patient Data Vitals - Most Recent: Last Vital Signs Temp 36.4 C 07/20/20 07:50 Pulse 94 07/20/20 08:17 Resp 15 07/20/20 07:50 BP 104/68 07/20/20 08:17 Pulse Ox 99 07/20/20 07:50 Weight - Most Recent: 111.584 kg I&O - Last 24 Hours: Intake & Output 07/19/20 07/20/20 07/20/20 22:59 06:59 14:59 Intake Total 1200 Output Total 950 Balance 250 Lab Results Last 24 Hours: Laboratory Results - last 24 hr 07/19/20 07/19/20 07/19/20 Range/Units 14:52 14:52 15:25 WBC 12.07 H (4.0-11.0) K/uL RBC 4.50 (4.50-5.90) M/uL Hgb 14.4 (13.0-17.0) g/dL Hct 42.1 (38.0-50.0) % MCV 93.6 (80.0-98.0) fL MCH 32.0 (27.0-32.0) pg MCHC 34.2 (31.0-37.0) g/dL RDW Std Deviation 49.0 (28.0-62.0) fl RDW Coeff of Len 14 (11.0-15.0) % Plt Count 322 (150-400) K/uL MPV 11.40 (7.40-12.00) fL Neut % (Auto) 61.6 (48.0-80.0) % Lymph % (Auto) 27.8 (16.0-40.0) % Hale % (Auto) 7.8 (0.0-15.0) % Eos % (Auto) 2.6 (0.0-7.0) % Baso % (Auto) 0.2 (0.0-1.5) % Neut # (Auto) 7.4 H (1.4-5.7) K/uL Lymph # (Auto) 3.4 H (0.6-2.4) K/uL Hale # (Auto) 0.9 H (0.0-0.8) K/uL Eos # (Auto) 0.3 (0.0-0.7) K/uL Baso # (Auto) 0.0 (0.0-0.1) K/uL Nucleated RBC % 0.0 /100WBC Nucleated RBCs # 0 K/uL Sodium 138 (136-148) mmol/L Potassium 4.3 (3.5-5.1) mmol/L Chloride 103 (98-107) mmol/L Carbon Dioxide 27.7 (21.0-32.0) mmol/L BUN 20 H (7.0-18.0) mg/dL Creatinine 1.7 H (0.8-1.3) mg/dL Est Cr Clr Drug Dosing 44.72 mL/min Estimated GFR (MDRD) 42.7 ml/min Glucose 132 H (74-106) mg/dL POC Glucose (70-99) mg/dL Lactic Acid 2.5 H* (0.4-2.0) mmol/L Calcium 8.8 (8.5-10.1) mg/dL Magnesium (1.8-2.4) mg/dL Total Bilirubin 0.2 (0.2-1.0) mg/dL AST 21 (15-37) IU/L ALT 42 (14-63) IU/L Alkaline Phosphatase 78 (46-116) U/L Total Protein 7.8 (6.4-8.2) g/dL Albumin 3.7 (3.4-5.0) g/dL Globulin 4.1 H (2.6-4.0) g/dL Albumin/Globulin Ratio 0.9 (0.9-1.6) Urine Color Urine Appearance Urine pH (5.0-8.0) Ur Specific Put[place] (1.001-1.035) Urine Protein (NEGATIVE) mg/dL Urine Glucose (UA) (NEGATIVE) mg/dL Urine Ketones (NEGATIVE) mg/dL Urine Occult Blood (NEGATIVE) Urine Nitrite (NEGATIVE) Urine Bilirubin (NEGATIVE) Urine Urobilinogen (<2.0) EU/dL Ur Leukocyte Esterase (NEGATIVE) SARS-CoV-2 RNA (GLORIA) (NEGATIVE) 07/19/20 07/19/20 07/19/20 Range/Units 16:50 17:12 17:58 WBC (4.0-11.0) K/uL RBC (4.50-5.90) M/uL Hgb (13.0-17.0) g/dL Hct (38.0-50.0) % MCV (80.0-98.0) fL MCH (27.0-32.0) pg MCHC (31.0-37.0) g/dL RDW Std Deviation (28.0-62.0) fl RDW Coeff of Len (11.0-15.0) % Plt Count (150-400) K/uL MPV (7.40-12.00) fL Neut % (Auto) (48.0-80.0) % Lymph % (Auto) (16.0-40.0) % Hale % (Auto) (0.0-15.0) % Eos % (Auto) (0.0-7.0) % Baso % (Auto) (0.0-1.5) % Neut # (Auto) (1.4-5.7) K/uL Lymph # (Auto) (0.6-2.4) K/uL Hale # (Auto) (0.0-0.8) K/uL Eos # (Auto) (0.0-0.7) K/uL Baso # (Auto) (0.0-0.1) K/uL Nucleated RBC % /100WBC Nucleated RBCs # K/uL Sodium (136-148) mmol/L Potassium (3.5-5.1) mmol/L Chloride (98-107) mmol/L Carbon Dioxide (21.0-32.0) mmol/L BUN (7.0-18.0) mg/dL Creatinine (0.8-1.3) mg/dL Est Cr Clr Drug Dosing mL/min Estimated GFR (MDRD) ml/min Glucose (74-106) mg/dL POC Glucose (70-99) mg/dL Lactic Acid 1.9 (0.4-2.0) mmol/L Calcium (8.5-10.1) mg/dL Magnesium (1.8-2.4) mg/dL Total Bilirubin (0.2-1.0) mg/dL AST (15-37) IU/L ALT (14-63) IU/L Alkaline Phosphatase (46-116) U/L Total Protein (6.4-8.2) g/dL Albumin (3.4-5.0) g/dL Globulin (2.6-4.0) g/dL Albumin/Globulin Ratio (0.9-1.6) Urine Color YELLOW Urine Appearance CLEAR Urine pH 6.0 (5.0-8.0) Ur Specific [place] 1.015 (1.001-1.035) Urine Protein NEGATIVE (NEGATIVE) mg/dL Urine Glucose (UA) NEGATIVE (NEGATIVE) mg/dL Urine Ketones NEGATIVE (NEGATIVE) mg/dL Urine Occult Blood NEGATIVE (NEGATIVE) Urine Nitrite NEGATIVE (NEGATIVE) Urine Bilirubin NEGATIVE (NEGATIVE) Urine Urobilinogen 0.2 (<2.0) EU/dL Ur Leukocyte Esterase NEGATIVE (NEGATIVE) SARS-CoV-2 RNA (GLORIA) NEGATIVE (NEGATIVE) 07/19/20 07/20/20 07/20/20 Range/Units 19:03 05:51 06:30 WBC 9.40 (4.0-11.0) K/uL RBC 4.15 L (4.50-5.90) M/uL Hgb 13.1 (13.0-17.0) g/dL Hct 38.9 (38.0-50.0) % MCV 93.7 (80.0-98.0) fL MCH 31.6 (27.0-32.0) pg MCHC 33.7 (31.0-37.0) g/dL RDW Std Deviation 49.8 (28.0-62.0) fl RDW Coeff of Len 15 (11.0-15.0) % Plt Count 281 (150-400) K/uL MPV 10.60 (7.40-12.00) fL Neut % (Auto) 56.9 (48.0-80.0) % Lymph % (Auto) 31.3 (16.0-40.0) % Hale % (Auto) 8.1 (0.0-15.0) % Eos % (Auto) 3.4 (0.0-7.0) % Baso % (Auto) 0.3 (0.0-1.5) % Neut # (Auto) 5.4 (1.4-5.7) K/uL Lymph # (Auto) 2.9 H (0.6-2.4) K/uL Hale # (Auto) 0.8 (0.0-0.8) K/uL Eos # (Auto) 0.3 (0.0-0.7) K/uL Baso # (Auto) 0.0 (0.0-0.1) K/uL Nucleated RBC % 0.0 /100WBC Nucleated RBCs # 0 K/uL Sodium (136-148) mmol/L Potassium (3.5-5.1) mmol/L Chloride (98-107) mmol/L Carbon Dioxide (21.0-32.0) mmol/L BUN (7.0-18.0) mg/dL Creatinine (0.8-1.3) mg/dL Est Cr Clr Drug Dosing mL/min Estimated GFR (MDRD) ml/min Glucose (74-106) mg/dL POC Glucose 95 118 H (70-99) mg/dL Lactic Acid (0.4-2.0) mmol/L Calcium (8.5-10.1) mg/dL Magnesium (1.8-2.4) mg/dL Total Bilirubin (0.2-1.0) mg/dL AST (15-37) IU/L ALT (14-63) IU/L Alkaline Phosphatase (46-116) U/L Total Protein (6.4-8.2) g/dL Albumin (3.4-5.0) g/dL Globulin (2.6-4.0) g/dL Albumin/Globulin Ratio (0.9-1.6) Urine Color Urine Appearance Urine pH (5.0-8.0) Ur Specific [place] (1.001-1.035) Urine Protein (NEGATIVE) mg/dL Urine Glucose (UA) (NEGATIVE) mg/dL Urine Ketones (NEGATIVE) mg/dL Urine Occult Blood (NEGATIVE) Urine Nitrite (NEGATIVE) Urine Bilirubin (NEGATIVE) Urine Urobilinogen (<2.0) EU/dL Ur Leukocyte Esterase (NEGATIVE) SARS-CoV-2 RNA ([place]IA) (NEGATIVE) 07/20/20 07/20/20 Range/Units 06:30 06:30 WBC (4.0-11.0) K/uL RBC (4.50-5.90) M/uL Hgb (13.0-17.0) g/dL Hct (38.0-50.0) % MCV (80.0-98.0) fL MCH (27.0-32.0) pg MCHC (31.0-37.0) g/dL RDW Std Deviation (28.0-62.0) fl RDW Coeff of Len (11.0-15.0) % Plt Count (150-400) K/uL MPV (7.40-12.00) fL Neut % (Auto) (48.0-80.0) % Lymph % (Auto) (16.0-40.0) % Hale % (Auto) (0.0-15.0) % Eos % (Auto) (0.0-7.0) % Baso % (Auto) (0.0-1.5) % Neut # (Auto) (1.4-5.7) K/uL Lymph # (Auto) (0.6-2.4) K/uL Hale # (Auto) (0.0-0.8) K/uL Eos # (Auto) (0.0-0.7) K/uL Baso # (Auto) (0.0-0.1) K/uL Nucleated RBC % /100WBC Nucleated RBCs # K/uL Sodium 139 (136-148) mmol/L Potassium 3.9 (3.5-5.1) mmol/L Chloride 103 (98-107) mmol/L Carbon Dioxide 25.6 (21.0-32.0) mmol/L BUN 13 (7.0-18.0) mg/dL Creatinine 1.0 (0.8-1.3) mg/dL Est Cr Clr Drug Dosing 76.02 mL/min Estimated GFR (MDRD) > 60.0 ml/min Glucose 118 H (74-106) mg/dL POC Glucose (70-99) mg/dL Lactic Acid (0.4-2.0) mmol/L Calcium 8.4 L (8.5-10.1) mg/dL Magnesium 1.4 L (1.8-2.4) mg/dL Total Bilirubin (0.2-1.0) mg/dL AST (15-37) IU/L ALT (14-63) IU/L Alkaline Phosphatase (46-116) U/L Total Protein (6.4-8.2) g/dL Albumin (3.4-5.0) g/dL Globulin (2.6-4.0) g/dL Albumin/Globulin Ratio (0.9-1.6) Urine Color Urine Appearance Urine pH (5.0-8.0) Ur Specific Putnam (1.001-1.035) Urine Protein (NEGATIVE) mg/dL Urine Glucose (UA) (NEGATIVE) mg/dL Urine Ketones (NEGATIVE) mg/dL Urine Occult Blood (NEGATIVE) Urine Nitrite (NEGATIVE) Urine Bilirubin (NEGATIVE) Urine Urobilinogen (<2.0) EU/dL Ur Leukocyte Esterase (NEGATIVE) SARS-CoV-2 RNA ([place]IA) (NEGATIVE) Med Orders - Current: Current Medications Dextrose/Water (50% Dextrose In Water 50 Ml Syringe) 50 ml IVPUSH ASDIRECTED PRN PRN Reason: Hypoglycemia Glucagon (Glucagon,Human Recombinant 1 Mg Vial) 1 mg IM ASDIRECTED PRN PRN Reason: Hypoglycemia Ceftriaxone Sodium/Dextrose 1 (gm/ Premix) 50 mls @ 100 mls/hr IV Q24H FORMERLY [facility], 1928–1983 Insulin Aspart (Insulin Aspart 100 Units/Ml 3 Ml Pen) 0 unit SUBCUT TIDAC FORMERLY [facility], 1928–1983; Protocol Last Admin: 07/20/20 07:34 Dose: Not Given Documented by: Insulin Glargine (Insulin Glargine,Human Rec. Analog 100 Units/Ml 3 Ml Pen) 10 units SUBCUT DAILY FORMERLY [facility], 1928–1983 Last Admin: 07/20/20 08:17 Dose: 10 units Documented by: Magnesium Sulfate (Magnesium Sulfate/Water 2 Gm/50 Ml Premix Bag) 2 gm IV O NETIME ONE Stop: 07/20/20 10:30 Melatonin (Melatonin 3 Mg Tab) 3 mg PO BEDTIME FORMERLY [facility], 1928–1983 Last Admin: 07/19/20 23:21 Dose: 3 mg Documented by: Metoprolol Tartrate (Metoprolol Tartrate 25 Mg Tab) 25 mg PO ONETIME ONE Stop: 07/20/20 10:29 Metoprolol Tartrate (Metoprolol Tartrate 50 Mg Tab) 50 mg PO Q12H FOR[facility], 1928–1983 Pravastatin Sodium (Pravastatin 40 Mg Tab) 80 mg PO BEDTIME FORMERLY [facility], 1928–1983 Sodium Chloride (Sodium Chloride 0.9% 10 Ml Syringe) 10 ml FLUSH ASDIRECTED PRN PRN Reason: Keep Vein Open Last Admin: 07/19/20 15:21 Dose: 10 ml Documented by: Sodium Chloride (Sodium Chloride 0.9% 2.5 Ml Syringe) 2.5 ml FLUSH ASDIRECTED PRN PRN Reason: Keep Vein Open Last Admin: 07/19/20 15:21 Dose: 2.5 ml Documented by: Discontinued Medications Dextrose/Water (50% Dextrose In Water 50 Ml Syringe) 50 ml IV ASDIRECTED PRN PRN Reason: Hypoglycemia Glucagon (Glucagon,Human Recombinant 1 Mg Vial) 1 mg IM ASDIRECTED PRN PRN Reason: Hypoglycemia Sodium Chloride (Normal Saline) 1,000 mls @ 999 mls/hr IV STAT STA Stop: 07/19/20 15:58 Last Admin: 07/19/20 14:59 Dose: 999 mls/hr Documented by: Piperacillin Sod/Tazobactam (Sod 4.5 gm/ Sodium Chloride) 100 mls @ 100 mls/hr IV ONETIME ONE Stop: 07/19/20 16:19 Last Admin: 07/19/20 15:48 Dose: 100 mls/hr Documented by: Sodium Chloride (Normal Saline) 1,000 mls @ 1,000 mls/hr IV .Bolus ONE Stop: 07/19/20 16:20 Last Admin: 07/19/20 15:24 Dose: 1,000 mls/hr Documented by: Sodium Chloride (Normal Saline) 1,000 mls @ 9,999 mls/hr IV STAT STA Stop: 07/19/20 16:38 Last Infusion: 07/19/20 16:34 Dose: 999 mls/hr Documented by: Ceftriaxone Sodium 1 gm/ (Sodium Chloride) 50 mls @ 100 mls/hr IV Q24H [facility], [facility]1983 Last Admin: 07/19/20 23:02 Dose: Not Given Documented by: Ceftriaxone Sodium/Dextrose (Rocephin In Dextrose,Iso-Osm 1 Gm/50 Ml) 50 mls @ 100 mls/hr IV Q24H FOR[facility], [facility]–1983 Last Admin: 07/19/20 23:11 Dose: 100 mls/hr Documented by: Metoprolol Tartrate (Metoprolol Tartrate 25 Mg Tab) 25 mg PO ONETIME ONE Stop: 07/20/20 08:16 Last Admin: 07/20/20 08:17 Dose: 25 mg Documented by: - Exam General: Alert, Oriented Lungs: Clear to Auscultation, Normal Respiratory Effort GI/Abdominal Exam: Soft, Non-Tender, No Distention Extremities: Non-Tender, No Pedal Edema (no erthyma of knee joint, sweeling of left knee joint stable, no drainage) Neurological: No New Focal Deficit - Patient Data Lab Results Last 24 hrs: Laboratory Results - last 24 hr 07/19/20 07/19/20 07/19/20 Range/Units 14:52 14:52 15:25 WBC 12.07 H (4.0-11.0) K/uL RBC 4.50 (4.50-5.90) M/uL Hgb 14.4 (13.0-17.0) g/dL Hct 42.1 (38.0-50.0) % MCV 93.6 (80.0-98.0) fL MCH 32.0 (27.0-32.0) pg MCHC 34.2 (31.0-37.0) g/dL RDW Std Deviation 49.0 (28.0-62.0) fl RDW Coeff of Len 14 (11.0-15.0) % Plt Count 322 (150-400) K/uL MPV 11.40 (7.40-12.00) fL Neut % (Auto) 61.6 (48.0-80.0) % Lymph % (Auto) 27.8 (16.0-40.0) % Hale % (Auto) 7.8 (0.0-15.0) % Eos % (Auto) 2.6 (0.0-7.0) % Baso % (Auto) 0.2 (0.0-1.5) % Neut # (Auto) 7.4 H (1.4-5.7) K/uL Lymph # (Auto) 3.4 H (0.6-2.4) K/uL Hale # (Auto) 0.9 H (0.0-0.8) K/uL Eos # (Auto) 0.3 (0.0-0.7) K/uL Baso # (Auto) 0.0 (0.0-0.1) K/uL Nucleated RBC % 0.0 /100WBC Nucleated RBCs # 0 K/uL Sodium 138 (136-148) mmol/L Potassium 4.3 (3.5-5.1) mmol/L Chloride 103 (98-107) mmol/L Carbon Dioxide 27.7 (21.0-32.0) mmol/L BUN 20 H (7.0-18.0) mg/dL Creatinine 1.7 H (0.8-1.3) mg/dL Est Cr Clr Drug Dosing 44.72 mL/min Estimated GFR (MDRD) 42.7 ml/min Glucose 132 H (74-106) mg/dL POC Glucose (70-99) mg/dL Lactic Acid 2.5 H* (0.4-2.0) mmol/L Calcium 8.8 (8.5-10.1) mg/dL Magnesium (1.8-2.4) mg/dL Total Bilirubin 0.2 (0.2-1.0) mg/dL AST 21 (15-37) IU/L ALT 42 (14-63) IU/L Alkaline Phosphatase 78 (46-116) U/L Total Protein 7.8 (6.4-8.2) g/dL Albumin 3.7 (3.4-5.0) g/dL Globulin 4.1 H (2.6-4.0) g/dL Albumin/Globulin Ratio 0.9 (0.9-1.6) Urine Color Urine Appearance Urine pH (5.0-8.0) Ur Specific Put[place] (1.001-1.035) Urine Protein (NEGATIVE) mg/dL Urine Glucose (UA) (NEGATIVE) mg/dL Urine Ketones (NEGATIVE) mg/dL Urine Occult Blood (NEGATIVE) Urine Nitrite (NEGATIVE) Urine Bilirubin (NEGATIVE) Urine Urobilinogen (<2.0) EU/dL Ur Leukocyte Esterase (NEGATIVE) SARS-CoV-2 RNA ([place]ORIA) (NEGATIVE) 07/19/20 07/19/20 07/19/20 Range/Units 16:50 17:12 17:58 WBC (4.0-11.0) K/uL RBC (4.50-5.90) M/uL Hgb (13.0-17.0) g/dL Hct (38.0-50.0) % MCV (80.0-98.0) fL MCH (27.0-32.0) pg MCHC (31.0-37.0) g/dL RDW Std Deviation (28.0-62.0) fl RDW Coeff of Len (11.0-15.0) % Plt Count (150-400) K/uL MPV (7.40-12.00) fL Neut % (Auto) (48.0-80.0) % Lymph % (Auto) (16.0-40.0) % Hale % (Auto) (0.0-15.0) % Eos % (Auto) (0.0-7.0) % Baso % (Auto) (0.0-1.5) % Neut # (Auto) (1.4-5.7) K/uL Lymph # (Auto) (0.6-2.4) K/uL Hale # (Auto) (0.0-0.8) K/uL Eos # (Auto) (0.0-0.7) K/uL Baso # (Auto) (0.0-0.1) K/uL Nucleated RBC % /100WBC Nucleated RBCs # K/uL Sodium (136-148) mmol/L Potassium (3.5-5.1) mmol/L Chloride (98-107) mmol/L Carbon Dioxide (21.0-32.0) mmol/L BUN (7.0-18.0) mg/dL Creatinine (0.8-1.3) mg/dL Est Cr Clr Drug Dosing mL/min Estimated GFR (MDRD) ml/min Glucose (74-106) mg/dL POC Glucose (70-99) mg/dL Lactic Acid 1.9 (0.4-2.0) mmol/L Calcium (8.5-10.1) mg/dL Magnesium (1.8-2.4) mg/dL Total Bilirubin (0.2-1.0) mg/dL AST (15-37) IU/L ALT (14-63) IU/L Alkaline Phosphatase (46-116) U/L Total Protein (6.4-8.2) g/dL Albumin (3.4-5.0) g/dL Globulin (2.6-4.0) g/dL Albumin/Globulin Ratio (0.9-1.6) Urine Color YELLOW Urine Appearance CLEAR Urine pH 6.0 (5.0-8.0) Ur Specific [place] 1.015 (1.001-1.035) Urine Protein NEGATIVE (NEGATIVE) mg/dL Urine Glucose (UA) NEGATIVE (NEGATIVE) mg/dL Urine Ketones NEGATIVE (NEGATIVE) mg/dL Urine Occult Blood NEGATIVE (NEGATIVE) Urine Nitrite NEGATIVE (NEGATIVE) Urine Bilirubin NEGATIVE (NEGATIVE) Urine Urobilinogen 0.2 (<2.0) EU/dL Ur Leukocyte Esterase NEGATIVE (NEGATIVE) SARS-CoV-2 RNA ([place]ORIA) NEGATIVE (NEGATIVE) 07/19/20 07/20/20 07/20/20 Range/Units 19:03 05:51 06:30 WBC 9.40 (4.0-11.0) K/uL RBC 4.15 L (4.50-5.90) M/uL Hgb 13.1 (13.0-17.0) g/dL Hct 38.9 (38.0-50.0) % MCV 93.7 (80.0-98.0) fL MCH 31.6 (27.0-32.0) pg MCHC 33.7 (31.0-37.0) g/dL RDW Std Deviation 49.8 (28.0-62.0) fl RDW Coeff of Len 15 (11.0-15.0) % Plt Count 281 (150-400) K/uL MPV 10.60 (7.40-12.00) fL Neut % (Auto) 56.9 (48.0-80.0) % Lymph % (Auto) 31.3 (16.0-40.0) % Hale % (Auto) 8.1 (0.0-15.0) % Eos % (Auto) 3.4 (0.0-7.0) % Baso % (Auto) 0.3 (0.0-1.5) % Neut # (Auto) 5.4 (1.4-5.7) K/uL Lymph # (Auto) 2.9 H (0.6-2.4) K/uL Hale # (Auto) 0.8 (0.0-0.8) K/uL Eos # (Auto) 0.3 (0.0-0.7) K/uL Baso # (Auto) 0.0 (0.0-0.1) K/uL Nucleated RBC % 0.0 /100WBC Nucleated RBCs # 0 K/uL Sodium (136-148) mmol/L Potassium (3.5-5.1) mmol/L Chloride (98-107) mmol/L Carbon Dioxide (21.0-32.0) mmol/L BUN (7.0-18.0) mg/dL Creatinine (0.8-1.3) mg/dL Est Cr Clr Drug Dosing mL/min Estimated GFR (MDRD) ml/min Glucose (74-106) mg/dL POC Glucose 95 118 H (70-99) mg/dL Lactic Acid (0.4-2.0) mmol/L Calcium (8.5-10.1) mg/dL Magnesium (1.8-2.4) mg/dL Total Bilirubin (0.2-1.0) mg/dL AST (15-37) IU/L ALT (14-63) IU/L Alkaline Phosphatase (46-116) U/L Total Protein (6.4-8.2) g/dL Albumin (3.4-5.0) g/dL Globulin (2.6-4.0) g/dL Albumin/Globulin Ratio (0.9-1.6) Urine Color Urine Appearance Urine pH (5.0-8.0) Ur Specific Putnam (1.001-1.035) Urine Protein (NEGATIVE) mg/dL Urine Glucose (UA) (NEGATIVE) mg/dL Urine Ketones (NEGATIVE) mg/dL Urine Occult Blood (NEGATIVE) Urine Nitrite (NEGATIVE) Urine Bilirubin (NEGATIVE) Urine Urobilinogen (<2.0) EU/dL Ur Leukocyte Esterase (NEGATIVE) SARS-CoV-2 RNA ([place]ORIA) (NEGATIVE) 07/20/20 07/20/20 Range/Units 06:30 06:30 WBC (4.0-11.0) K/uL RBC (4.50-5.90) M/uL Hgb (13.0-17.0) g/dL Hct (38.0-50.0) % MCV (80.0-98.0) fL MCH (27.0-32.0) pg MCHC (31.0-37.0) g/dL RDW Std Deviation (28.0-62.0) fl RDW Coeff of Len (11.0-15.0) % Plt Count (150-400) K/uL MPV (7.40-12.00) fL Neut % (Auto) (48.0-80.0) % Lymph % (Auto) (16.0-40.0) % Hale % (Auto) (0.0-15.0) % Eos % (Auto) (0.0-7.0) % Baso % (Auto) (0.0-1.5) % Neut # (Auto) (1.4-5.7) K/uL Lymph # (Auto) (0.6-2.4) K/uL Hale # (Auto) (0.0-0.8) K/uL Eos # (Auto) (0.0-0.7) K/uL Baso # (Auto) (0.0-0.1) K/uL Nucleated RBC % /100WBC Nucleated RBCs # K/uL Sodium 139 (136-148) mmol/L Potassium 3.9 (3.5-5.1) mmol/L Chloride 103 (98-107) mmol/L Carbon Dioxide 25.6 (21.0-32.0) mmol/L BUN 13 (7.0-18.0) mg/dL Creatinine 1.0 (0.8-1.3) mg/dL Est Cr Clr Drug Dosing 76.02 mL/min Estimated GFR (MDRD) > 60.0 ml/min Glucose 118 H (74-106) mg/dL POC Glucose (70-99) mg/dL Lactic Acid (0.4-2.0) mmol/L Calcium 8.4 L (8.5-10.1) mg/dL Magnesium 1.4 L (1.8-2.4) mg/dL Total Bilirubin (0.2-1.0) mg/dL AST (15-37) IU/L ALT (14-63) IU/L Alkaline Phosphatase (46-116) U/L Total Protein (6.4-8.2) g/dL Albumin (3.4-5.0) g/dL Globulin (2.6-4.0) g/dL Albumin/Globulin Ratio (0.9-1.6) Urine Color Urine Appearance Urine pH (5.0-8.0) Ur Specific Putnam (1.001-1.035) Urine Protein (NEGATIVE) mg/dL Urine Glucose (UA) (NEGATIVE) mg/dL Urine Ketones (NEGATIVE) mg/dL Urine Occult Blood (NEGATIVE) Urine Nitrite (NEGATIVE) Urine Bilirubin (NEGATIVE) Urine Urobilinogen (<2.0) EU/dL Ur Leukocyte Esterase (NEGATIVE) SARS-CoV-2 RNA ([place]) (NEGATIVE) Result Diagrams: 07/20/20 06:30 07/20/20 06:30 Sepsis Event Note - Evaluation Sepsis Screening Result: No Definite Risk - Focused Exam Vital Signs: Vital Signs Temp Pulse Pulse Resp BP BP Pulse Ox 07/20/20 08:17 94 104/68 07/20/20 07:50 36.4 C 94 15 104/68 99 07/20/20 05:45 36.6 C 98 18 119/65 98 07/19/20 23:16 36.6 C 98 16 105/55 L 95 - Problem List Review Problem List Initiated/Reviewed/Updated: Yes - My Orders Last 24 Hours: My Active Orders 07/19/20 17:30 Insulin Aspart [NovoLOG] See Protocol SUBCUT TIDAC 07/19/20 18:31 Dextrose 50% in Water 50 ml IVPUSH ASDIRECTED PRN Glucagon,Human Recombinant [GlucaGen] 1 mg IM ASDIRECTED PRN 07/19/20 18:55 Telemetry Monitoring [Cardiac Monitoring] [RC] Q8H 07/19/20 21:00 Melatonin 3 mg PO BEDTIME 07/20/20 07:30 Blood Glucose Check, Bedside [RC] TIDA 07/20/20 09:00 Insulin Glarg,Human.Rec.Analog [LantUS Solostar] 10 units SUBCUT DAILY 07/20/20 10:28 Metoprolol Tartrate [Lopressor] 25 mg PO ONETIME ONE 07/20/20 10:29 Magnesium Sulfate/Water [Magnesium Sulfate in Water 2 GM/50 ML] 2 gm IV ONETIME ONE 07/20/20 Dinner ADA Diabetic [[place] [employer] Diet] [DIET] 07/20/20 19:00 Metoprolol Tartrate [Lopressor] 50 mg PO Q12H 07/20/20 21:00 Pravastatin [Pravachol] 80 mg PO BEDTIME 07/20/20 23:00 cefTRIAXone [Rocephin in Dextrose,Iso-Osm 1 GM/50 ML] 1 gm Premix Bag 1 bag IV Q24H - Plan Plan:: 50 yo male admitted who presented with dizziness and generalized weakness, found to be hypotensive with acute kidney injury. Acute kidney injury may be multifactorial including likely recent history of gastroenteritis as well as hypotension induced by patient's multiple antihypertensive medications and recent weight loss. Patient's knee does not appear infected but will give Rocephin until infection has been ruled out REMI/hypotension: Creatinine has normalized, BP is 110s/60s, holding antihypertensive medications except metoprolol DM: lantus 10 daily, ssi, diabetic diet RITA: CPAP at night A.fib: HR 110s at rest and 160s with activity, Will increase metoprolol to 50 BID. We will start Eliquis
[2020-07-20] MEDS ORDERED: Magnesium Sulfate/Water 2 GM/50 ML BAG IV ONE (11:00)
[2020-07-20] MEDS: Apixaban 5 MG Tab PO SCH ×2 (11:37→21:56)
[2020-07-20] MEDS ORDERED: Metoprolol Tartrate 50 MG Tab PO SCH ×2 (19:00→21:00)
[2020-07-20] MEDS: Pravastatin 40 MG Tab PO SCH (21:56)
[2020-07-20] MEDS: Melatonin 3 MG Tab PO SCH (21:58)
[2020-07-20] MEDS: cefTRIAXone 1 GM in Premix Bag 1 BAG IV SCH (22:01)
[2020-07-21 06:01] LABS: BLOOD UREA NITROGEN,BUN 14 mg/dL (7.0-18.0); CHLORIDE,CL 102 mmol/L (98-107); GLUCOSE RANDOM 126 mg/dL (74-106); POTASSIUM,K 3.9 mmol/L (3.5-5.1); SODIUM,NA 138 mmol/L (136-148)
[2020-07-21] MEDS: Insulin Aspart 100 Units/ML 3 ML Pen SUBCUT SCH ×3 (07:42→16:56)
[2020-07-21] MEDS ORDERED: Magnesium Sulfate/Water 2 GM in Premix Bag 1 BAG IV ONE (07:52)
[2020-07-21] MEDS: Apixaban 5 MG Tab PO SCH ×2 (08:12→21:04)
[2020-07-21] MEDS: Insulin Glargine,Human Rec. Analog 100 Units/ML 3 ML Pen SUBCUT SCH (08:13)
[2020-07-21] MEDS: Metoprolol Tartrate 25 MG Tab PO SCH ×2 (09:16→21:05)
--- NOTE | 2020-07-21 12:29 | PCM.PN ---
- General Info Date of Service: 07/21/20 Admission Dx/Problem (Free Text): Admission Diagnosis/Problem Admission Diagnosis/Problem Hypotension/atrial fibrillation, on new onset Subjective Update: Doing well this morning. Denies any chest pain. Reports mild dyspnea with exertion. No further nausea vomiting. Denies any overt knee pain. No further erythema to left knee. Functional Status: Reports: Pain Controlled, Tolerating Diet, Ambulating, Urinating - Review of Systems General: Reports: No Symptoms. Denies: Fatigue, Malaise HEENT: Reports: No Symptoms. Denies: Headaches, Sore Throat, Rhinitis Cardiovascular: Reports: Dyspnea on Exertion. Denies: Chest Pain, Palpitations, Orthopnea, Edema, Lightheadedness Gastrointestinal: Reports: No Symptoms. Denies: Abdominal Pain, Nausea, Vomiting Genitourinary: Reports: No Symptoms. Denies: Dysuria, Frequency, Burning Musculoskeletal: Reports: No Symptoms Skin: Reports: No Symptoms Neurological: Reports: No Symptoms Psychiatric: Reports: No Symptoms - Patient Data Vitals - Most Recent: Last Vital Signs Temp 97.6 F 07/21/20 12:07 Pulse 82 07/21/20 12:07 Resp 16 07/21/20 12:07 BP 110/58 L 07/21/20 12:07 Pulse Ox 97 07/21/20 12:07 Weight - Most Recent: 111.584 kg I&O - Last 24 Hours: Intake & Output 07/20/20 07/21/20 07/21/20 22:59 06:59 14:59 Intake Total 930 720 Output Total 7248 1425 Balance -545 -705 Lab Results Last 24 Hours: Laboratory Results - last 24 hr 07/20/20 07/21/20 07/21/20 Range/Units 16:53 05:33 05:33 WBC 9.75 (4.0-11.0) K/uL RBC 4.37 L (4.50-5.90) M/uL Hgb 13.9 (13.0-17.0) g/dL Hct 40.4 (38.0-50.0) % MCV 92.4 (80.0-98.0) fL MCH 31.8 (27.0-32.0) pg MCHC 34.4 (31.0-37.0) g/dL RDW Std Deviation 48.0 (28.0-62.0) fl RDW Coeff of Len 14 (11.0-15.0) % Plt Count 283 (150-400) K/uL MPV 10.50 (7.40-12.00) fL Neut % (Auto) 55.5 (48.0-80.0) % Lymph % (Auto) 32.9 (16.0-40.0) % Mcleod % (Auto) 7.7 (0.0-15.0) % Eos % (Auto) 3.5 (0.0-7.0) % Baso % (Auto) 0.4 (0.0-1.5) % Neut # (Auto) 5.4 (1.4-5.7) K/uL Lymph # (Auto) 3.2 H (0.6-2.4) K/uL Mcleod # (Auto) 0.8 (0.0-0.8) K/uL Eos # (Auto) 0.3 (0.0-0.7) K/uL Baso # (Auto) 0.0 (0.0-0.1) K/uL Nucleated RBC % 0.0 /100WBC Nucleated RBCs # 0 K/uL Sodium 138 (136-148) mmol/L Potassium 3.9 (3.5-5.1) mmol/L Chloride 102 (98-107) mmol/L Carbon Dioxide 27.0 (21.0-32.0) mmol/L BUN 14 (7.0-18.0) mg/dL Creatinine 1.0 (0.8-1.3) mg/dL Est Cr Clr Drug Dosing 76.02 mL/min Estimated GFR (MDRD) > 60.0 ml/min Glucose 126 H (74-106) mg/dL POC Glucose 111 H (70-99) mg/dL Calcium 8.7 (8.5-10.1) mg/dL Magnesium 1.6 L (1.8-2.4) mg/dL Troponin I (0.000-0.056) ng/mL 07/21/20 07/21/20 Range/Units 05:33 06:06 WBC (4.0-11.0) K/uL RBC (4.50-5.90) M/uL Hgb (13.0-17.0) g/dL Hct (38.0-50.0) % MCV (80.0-98.0) fL MCH (27.0-32.0) pg MCHC (31.0-37.0) g/dL RDW Std Deviation (28.0-62.0) fl RDW Coeff of Len (11.0-15.0) % Plt Count (150-400) K/uL MPV (7.40-12.00) fL Neut % (Auto) (48.0-80.0) % Lymph % (Auto) (16.0-40.0) % Mcleod % (Auto) (0.0-15.0) % Eos % (Auto) (0.0-7.0) % Baso % (Auto) (0.0-1.5) % Neut # (Auto) (1.4-5.7) K/uL Lymph # (Auto) (0.6-2.4) K/uL Mcleod # (Auto) (0.0-0.8) K/uL Eos # (Auto) (0.0-0.7) K/uL Baso # (Auto) (0.0-0.1) K/uL Nucleated RBC % /100WBC Nucleated RBCs # K/uL Sodium (136-148) mmol/L Potassium (3.5-5.1) mmol/L Chloride (98-107) mmol/L Carbon Dioxide (21.0-32.0) mmol/L BUN (7.0-18.0) mg/dL Creatinine (0.8-1.3) mg/dL Est Cr Clr Drug Dosing mL/min Estimated GFR (MDRD) ml/min Glucose (74-106) mg/dL POC Glucose 117 H (70-99) mg/dL Calcium (8.5-10.1) mg/dL Magnesium (1.8-2.4) mg/dL Troponin I < 0.050 (0.000-0.056) ng/mL Oscar Results Last 24 Hours: Microbiology 07/19/20 15:05 Aerobic Blood Culture - Preliminary Blood - Venous - Lab Draw NO GROWTH AFTER 1 DAY Anaerobic Blood Culture - Preliminary NO GROWTH AFTER 1 DAY 07/19/20 14:53 Aerobic Blood Culture - Preliminary Blood - Venous NO GROWTH AFTER 1 DAY Anaerobic Blood Culture - Preliminary NO GROWTH AFTER 1 DAY Med Orders - Current: Current Medications Apixaban (Apixaban 5 Mg Tab) 5 mg PO BID [facility] Last Admin: 07/21/20 08:12 Dose: 5 mg Documented by: Dextrose/Water (50% Dextrose In Water 50 Ml Syringe) 50 ml IVPUSH ASDIRECTED PRN PRN Reason: Hypoglycemia Glucagon (Glucagon,Human Recombinant 1 Mg Vial) 1 mg IM ASDIRECTED PRN PRN Reason: Hypoglycemia Ceftriaxone Sodium/Dextrose 1 (gm/ Premix) 50 mls @ 100 mls/hr IV Q24H [facility] Last Admin: 07/20/20 22:01 Dose: 100 mls/hr Documented by: Insulin Aspart (Insulin Aspart 100 Units/Ml 3 Ml Pen) 0 unit SUBCUT TIDAC [facility]; Protocol Last Admin: 07/21/20 12:04 Dose: Not Given Documented by: Insulin Glargine (Insulin Glargine,Human Rec. Analog 100 Units/Ml 3 Ml Pen) 10 units SUBCUT DAILY [facility] Last Admin: 07/21/20 08:13 Dose: 10 units Documented by: Melatonin (Melatonin 3 Mg Tab) 3 mg PO BEDTIME [facility] Last Admin: 07/20/20 21:58 Dose: 3 mg Documented by: Metoprolol Tartrate (Metoprolol Tartrate 25 Mg Tab) 25 mg PO BID [facility] Last Admin: 07/21/20 09:16 Dose: 25 mg Documented by: Pravastatin Sodium (Pravastatin 40 Mg Tab) 80 mg PO BEDTIME [facility] Last Admin: 07/20/20 21:56 Dose: 80 mg Documented by: Sodium Chloride (Sodium Chloride 0.9% 10 Ml Syringe) 10 ml FLUSH ASDIRECTED PRN PRN Reason: Keep Vein Open Last Admin: 07/19/20 15:21 Dose: 10 ml Documented by: Sodium Chloride (Sodium Chloride 0.9% 2.5 Ml Syringe) 2.5 ml FLUSH ASDIRECTED PRN PRN Reason: Keep Vein Open Last Admin: 07/19/20 15:21 Dose: 2.5 ml Documented by: Discontinued Medications Dextrose/Water (50% Dextrose In Water 50 Ml Syringe) 50 ml IV ASDIRECTED PRN PRN Reason: Hypoglycemia Glucagon (Glucagon,Human Recombinant 1 Mg Vial) 1 mg IM ASDIRECTED PRN PRN Reason: Hypoglycemia Sodium Chloride (Normal Saline) 1,000 mls @ 999 mls/hr IV STAT STA Stop: 07/19/20 15:58 Last Admin: 07/19/20 14:59 Dose: 999 mls/hr Documented by: Piperacillin Sod/Tazobactam (Sod 4.5 gm/ Sodium Chloride) 100 mls @ 100 mls/hr IV ONETIME ONE Stop: 07/19/20 16:19 Last Admin: 07/19/20 15:48 Dose: 100 mls/hr Documented by: Sodium Chloride (Normal Saline) 1,000 mls @ 1,000 mls/hr IV .Bolus ONE Stop: 07/19/20 16:20 Last Admin: 07/19/20 15:24 Dose: 1,000 mls/hr Documented by: Sodium Chloride (Normal Saline) 1,000 mls @ 9,999 mls/hr IV STAT STA Stop: 07/19/20 16:38 Last Infusion: 07/19/20 16:34 Dose: 999 mls/hr Documented by: Ceftriaxone Sodium 1 gm/ (Sodium Chloride) 50 mls @ 100 mls/hr IV Q24H [facility] Last Admin: 07/19/20 23:02 Dose: Not Given Documented by: Ceftriaxone Sodium/Dextrose (Rocephin In Dextrose,Iso-Osm 1 Gm/50 Ml) 50 mls @ 100 mls/hr IV Q24H [facility] Last Admin: 07/19/20 23:11 Dose: 100 mls/hr Documented by: Magnesium Sulfate (Magnesium Sulfate In Water 2 Gm/50 Ml) 2 gm in 50 mls @ 50 mls/hr IV ONETIME ONE Stop: 07/20/20 11:59 Last Admin: 07/20/20 11:37 Dose: 50 mls/hr Documented by: Magnesium Sulfate 2 gm/ Premix 50 mls @ 12.5 mls/hr IV ONETIME ONE Stop: 07/21/20 11:51 Last Admin: 07/21/20 09:16 Dose: 12.5 mls/hr Documented by: Metoprolol Tartrate (Metoprolol Tartrate 25 Mg Tab) 25 mg PO ONETIME ONE Stop: 07/20/20 08:16 Last Admin: 07/20/20 08:17 Dose: 25 mg Documented by: Metoprolol Tartrate (Metoprolol Tartrate 25 Mg Tab) 25 mg PO ONETIME ONE Stop: 07/20/20 11:01 Last Admin: 07/20/20 11:36 Dose: Not Given Documented by: Metoprolol Tartrate (Metoprolol Tartrate 50 Mg Tab) 50 mg PO Q12H [facility] Last Admin: 07/20/20 19:32 Dose: Not Given Documented by: Metoprolol Tartrate (Metoprolol Tartrate 50 Mg Tab) 50 mg PO BID [facility] Last Admin: 07/20/20 22:23 Dose: 25 mg Documented by: - Exam Quality Assessment: DVT Prophylaxis. No: Supplemental Oxygen General: Alert, Oriented, Cooperative, No Acute Distress Lungs: Clear to Auscultation, Normal Respiratory Effort Cardiovascular: Regular Rate, Irregular Rhythm, Other (Heart rate does elevate with activity up to 150s) GI/Abdominal Exam: Normal Bowel Sounds, Soft, Non-Tender Extremities: Normal Inspection, Normal Range of Motion, Non-Tender, No Pedal Edema Wound/Incisions: No Drainage. No: Drainage, Erythema Neurological: No New Focal Deficit Psy/Mental Status: Alert, Normal Affect, Normal Mood - Patient Data Lab Results Last 24 hrs: Laboratory Results - last 24 hr 07/20/20 07/21/20 07/21/20 Range/Units 16:53 05:33 05:33 WBC 9.75 (4.0-11.0) K/uL RBC 4.37 L (4.50-5.90) M/uL Hgb 13.9 (13.0-17.0) g/dL Hct 40.4 (38.0-50.0) % MCV 92.4 (80.0-98.0) fL MCH 31.8 (27.0-32.0) pg MCHC 34.4 (31.0-37.0) g/dL RDW Std Deviation 48.0 (28.0-62.0) fl RDW Coeff of Len 14 (11.0-15.0) % Plt Count 283 (150-400) K/uL MPV 10.50 (7.40-12.00) fL Neut % (Auto) 55.5 (48.0-80.0) % Lymph % (Auto) 32.9 (16.0-40.0) % Mcleod % (Auto) 7.7 (0.0-15.0) % Eos % (Auto) 3.5 (0.0-7.0) % Baso % (Auto) 0.4 (0.0-1.5) % Neut # (Auto) 5.4 (1.4-5.7) K/uL Lymph # (Auto) 3.2 H (0.6-2.4) K/uL Mcleod # (Auto) 0.8 (0.0-0.8) K/uL Eos # (Auto) 0.3 (0.0-0.7) K/uL Baso # (Auto) 0.0 (0.0-0.1) K/uL Nucleated RBC % 0.0 /100WBC Nucleated RBCs # 0 K/uL Sodium 138 (136-148) mmol/L Potassium 3.9 (3.5-5.1) mmol/L Chloride 102 (98-107) mmol/L Carbon Dioxide 27.0 (21.0-32.0) mmol/L BUN 14 (7.0-18.0) mg/dL Creatinine 1.0 (0.8-1.3) mg/dL Est Cr Clr Drug Dosing 76.02 mL/min Estimated GFR (MDRD) > 60.0 ml/min Glucose 126 H (74-106) mg/dL POC Glucose 111 H (70-99) mg/dL Calcium 8.7 (8.5-10.1) mg/dL Magnesium 1.6 L (1.8-2.4) mg/dL Troponin I (0.000-0.056) ng/mL 07/21/20 07/21/20 Range/Units 05:33 06:06 WBC (4.0-11.0) K/uL RBC (4.50-5.90) M/uL Hgb (13.0-17.0) g/dL Hct (38.0-50.0) % MCV (80.0-98.0) fL MCH (27.0-32.0) pg MCHC (31.0-37.0) g/dL RDW Std Deviation (28.0-62.0) fl RDW Coeff of Len (11.0-15.0) % Plt Count (150-400) K/uL MPV (7.40-12.00) fL Neut % (Auto) (48.0-80.0) % Lymph % (Auto) (16.0-40.0) % Mcleod % (Auto) (0.0-15.0) % Eos % (Auto) (0.0-7.0) % Baso % (Auto) (0.0-1.5) % Neut # (Auto) (1.4-5.7) K/uL Lymph # (Auto) (0.6-2.4) K/uL Mcleod # (Auto) (0.0-0.8) K/uL Eos # (Auto) (0.0-0.7) K/uL Baso # (Auto) (0.0-0.1) K/uL Nucleated RBC % /100WBC Nucleated RBCs # K/uL Sodium (136-148) mmol/L Potassium (3.5-5.1) mmol/L Chloride (98-107) mmol/L Carbon Dioxide (21.0-32.0) mmol/L BUN (7.0-18.0) mg/dL Creatinine (0.8-1.3) mg/dL Est Cr Clr Drug Dosing mL/min Estimated GFR (MDRD) ml/min Glucose (74-106) mg/dL POC Glucose 117 H (70-99) mg/dL Calcium (8.5-10.1) mg/dL Magnesium (1.8-2.4) mg/dL Troponin I < 0.050 (0.000-0.056) ng/mL Result Diagrams: 07/21/20 05:33 07/21/20 05:33 Oscar Results Last 24 hrs: Microbiology 07/19/20 15:05 Aerobic Blood Culture - Preliminary Blood - Venous - Lab Draw NO GROWTH AFTER 1 DAY Anaerobic Blood Culture - Preliminary NO GROWTH AFTER 1 DAY 07/19/20 14:53 Aerobic Blood Culture - Preliminary Blood - Venous NO GROWTH AFTER 1 DAY Anaerobic Blood Culture - Preliminary NO GROWTH AFTER 1 DAY Sepsis Event Note - Evaluation Sepsis Screening Result: No Definite Risk - Focused Exam Vital Signs: Vital Signs Temp Pulse Pulse Resp BP BP Pulse Ox 07/21/20 12:07 97.6 F 82 16 110/58 L 97 07/21/20 09:16 87 107/67 07/21/20 07:41 97.8 F 87 15 107/67 95 07/21/20 05:40 97.8 F 92 18 105/67 97 07/21/20 01:29 87 107/55 L - Problem List & Annotations (1) Atrial fibrillation, new onset SNOMED Code(s): 77943570 Code(s): I48.91 - UNSPECIFIED ATRIAL FIBRILLATION Status: Acute Current Visit: Yes (2) Cellulitis of left leg SNOMED Code(s): 263381705 Code(s): L03.116 - CELLULITIS OF LEFT LOWER LIMB Status: Acute Current Visit: Yes (3) Diabetes mellitus SNOMED Code(s): 43636647 Code(s): E11.9 - TYPE 2 DIABETES MELLITUS WITHOUT COMPLICATIONS Status: Acute Current Visit: No (4) GERD (gastroesophageal reflux disease) SNOMED Code(s): 524230660 Code(s): K21.9 - GASTRO-ESOPHAGEAL REFLUX DISEASE WITHOUT ESOPHAGITIS Status: Acute Current Visit: No (5) HLD (hyperlipidemia) SNOMED Code(s): 38591348 Code(s): E78.5 - HYPERLIPIDEMIA, UNSPECIFIED Status: Acute Current Visit: No (6) HTN (hypertension) SNOMED Code(s): 30631630 Code(s): I10 - ESSENTIAL (PRIMARY) HYPERTENSION Status: Acute Current Visit: No (7) Obesity SNOMED Code(s): 037845448, 478506947 Code(s): E66.9 - OBESITY, UNSPECIFIED Status: Acute Current Visit: No (8) Sleep apnea SNOMED Code(s): 47965956 Code(s): G47.30 - SLEEP APNEA, UNSPECIFIED Status: Acute Current Visit: No - Problem List Review Problem List Initiated/Reviewed/Updated: Yes - My Orders Last 24 Hours: My Active Orders 07/21/20 09:00 Metoprolol Tartrate [Lopressor] 25 mg PO BID 07/21/20 10:08 Ang Chest [CT] Urgent 07/21/20 10:22 May Shower [RC] ASDIRECTED - Plan Plan:: 50 yo male admitted who presented with dizziness and generalized weakness, found to be hypotensive with acute kidney injury. 1. New onset atrial fibrillation -Continue metoprolol 25 mg twice daily, dose decreased due to softer blood pressures -Obtain echo, pending this morning -Due to recent surgical intervention with left TKA revision patient high risk for PE. Will obtain CTA of chest as REMI has improved. - Continue Eliquis 5 mg BID 2. REMI -Creatinine normalized -Continue to hold nephrotoxic medications -Blood pressures softer 100s systolically - Acute kidney injury may be multifactorial including likely recent history of gastroenteritis as well as hypotension induced by patient's multiple antihypertensive medications and recent weight loss. 3. Hypotension - BP softer, will monitor - Holding antihypertensives besides Metoprolol 4. L leg cellulitis - Proximal edge of L knee incision, improved. No drainage and no excessive erythema - Continue Rocephin for now - Knee joint does not appear infected. Ability to move and low pain noted. No overt swelling of joint. 5. DM type 2 - Lantus 10 - Novolog SSI with meals - ADA diet 6. RITA: - Continue CPAP at night VTE prophylaxis: Eliquis Code Status: Full code Dispo; possible home in am.
[2020-07-21] MEDS ORDERED: Sodium Chloride 0.9% 1,000 ML IV ONE (12:58)
[2020-07-21] MEDS ORDERED: Iopamidol 755 MG/ML 500 ML Multipack Bottle IVPUSH STA (13:04)
--- NOTE | 2020-07-21 13:46 | CT ---
INDICATION: AFib, shortness of breath, recent surgery. COMPARISON: Chest radiograph 07/19/2020. CT of the abdomen and pelvis 05/01/2020. TECHNIQUE: CT of the chest with 75 cc of Isovue 370 IV contrast. Coronal and sagittal reconstructions. 3D post processing was performed. FINDINGS: Normal heart size. Normal caliber thoracic aorta and central pulmonary arteries. Negative for acute pulmonary embolism. No pericardial effusion. No thoracic lymphadenopathy. Resolution of the previously seen left lower lobe consolidation. There are hazy ground-glass opacities in the left mid and lower lung which may be infectious or inflammatory or post infectious in nature. No dense consolidation. No pleural effusion or pneumothorax. 5 mm noncalcified pulmonary nodule in the right middle lobe (series 402, image 100). No central endobronchial lesion. Mild bronchial wall thickening in the left lower lobe. The thyroid gland is normal in appearance. The visualized upper abdomen is unremarkable. The bones are unremarkable. IMPRESSION: 1. Negative for acute pulmonary embolism. 2. Resolution of the previously seen left lower lobe consolidation. 3. There are hazy ground-glass opacities in the left mid and lower lung which may be infectious or inflammatory versus postinfectious in nature. 4. 5 mm noncalcified pulmonary nodule in the right middle lobe. Please see follow-up guidelines below. [employer] GUID[employer]IN[employer] - SOLID NODULES: : SINGLE LOW RISK - nodule less than 6 mm: No routine follow-up. - nodule 6-8 mm: CT at 6-12 months, then consider CT at 18-24 months. - nodule greater than 8 mm: Consider CT at 3 months, PET/CT or tissue sampling. SINGLE HIGH RISK - nodule less than 6 mm: Optional CT at 12 months. - nodule 6-8 mm: CT at 6-12 months, then CT at 18-24 months. - nodule greater than 8 mm: Consider CT at 3 months, PET/CT or tissue sampling. Please note that all CT scans at this facility use dose modulation, iterative reconstruction, and/or weight-based dosing when appropriate to reduce radiation dose to as low as reasonably achievable. Dictated by Amanda Hernandez MD @ 07/21/2020 1:44:[address] Amanda Hernandez @ Jul 21 2020 1:44PM
[2020-07-21] MEDS ORDERED: Digoxin 500 MCG/2 ML Amp IVPUSH ONE (15:09)
[2020-07-21] MEDS: Pravastatin 40 MG Tab PO SCH (21:05)
[2020-07-21] MEDS: Melatonin 3 MG Tab PO SCH (21:05)
[2020-07-21] MEDS: Digoxin 500 MCG/2 ML Amp IVPUSH SCH (21:09)
[2020-07-21] MEDS: cefTRIAXone 1 GM in Premix Bag 1 BAG IV SCH (23:50)
[2020-07-22] MEDS: Digoxin 500 MCG/2 ML Amp IVPUSH SCH (03:37)
[2020-07-22 06:23] LABS: BLOOD UREA NITROGEN,BUN 12 mg/dL (7.0-18.0); CARBON DIOXIDE,CO2 26.2 mmol/L (21.0-32.0); CHLORIDE,CL 103 mmol/L (98-107); GLUCOSE RANDOM 120 mg/dL (74-106); POTASSIUM,K 3.9 mmol/L (3.5-5.1); SODIUM,NA 137 mmol/L (136-148)
[2020-07-22] MEDS: Insulin Aspart 100 Units/ML 3 ML Pen SUBCUT SCH ×2 (07:30→12:46)
[2020-07-22] MEDS ORDERED: Potassium Chloride 20 MEQ Tab.ER PO ONE (08:00)
[2020-07-22] MEDS ORDERED: Magnesium Sulfate/Water 2 GM in Premix Bag 1 BAG IV ONE (08:00)
[2020-07-22] MEDS ORDERED: Digoxin 500 MCG/2 ML Amp IVPUSH ONE (08:00)
[2020-07-22] MEDS: Metoprolol Tartrate 25 MG Tab PO SCH (08:27)
[2020-07-22] MEDS: Apixaban 5 MG Tab PO SCH (08:27)
[2020-07-22] MEDS: Insulin Glargine,Human Rec. Analog 100 Units/ML 3 ML Pen SUBCUT SCH (08:36)
[2020-07-22] MEDS ORDERED: Metoprolol Tartrate 25 MG Tab PO ONE (10:01)
--- NOTE | 2020-07-22 10:42 | PCM.DCSUM1 ---
Discharge Summary - Hospital Course Brief History: 50 yo male with pmh of obesity, HTN, RITA, DM, who presented to the ED with several week history of fatigue, weakness, dizziness, and blurred vision. Patient reports he thought his blood sugars were low but they never have been low when he checks them. A week ago patient had nausea, and vomiting. He denies any fevers, chills, or palpitations. In April patient was admitted for pneumonia. Patient reports he has intentionally lost 30 lbs in the last two months. Patient reports that he had run out of his antihypertensive medications and has stopped taken them until several weeks ago he had them refilled around the same time his dizziness got worse. Patient reports he does not check his blood pressure at home. He just finished a course of Ciprofloxacin for superficial cellulitis around his left knee wound. He had revision of his left knee arthroplasty about six weeks ago. He was seen by his orthopedic surgeon three days ago who felt the swelling of his knee was typical at this stage post op. In the ED he was noted to be atrial fibrillation which is new. His heart rate was controlled. His blood pressure was noted to be low at 80s/50s. He was given IV fluids and IV Zosyn in the ED. Diagnosis: Stroke: No - Discharge Data Discharge Date: 07/22/20 Discharge Disposition: Home, Self-Care 01 Condition: Good - Referral to Home Health Primary Care Physician: BETZAIDA Arevalo - Discharge Diagnosis/Problem(s) (1) Atrial fibrillation, new onset SNOMED Code(s): 50910188 ICD Code: I48.91 - UNSPECIFIED ATRIAL FIBRILLATION Status: Acute Current Visit: Yes (2) Cellulitis of left leg SNOMED Code(s): 958904409 ICD Code: L03.116 - CELLULITIS OF LEFT LOWER LIMB Status: Acute Current Visit: Yes (3) Diabetes mellitus SNOMED Code(s): 17793970 ICD Code: E11.9 - TYPE 2 DIABETES MELLITUS WITHOUT COMPLICATIONS Status: Acute Current Visit: No (4) GERD (gastroesophageal reflux disease) SNOMED Code(s): 927498050 ICD Code: K21.9 - GASTRO-ESOPHAGEAL REFLUX DISEASE WITHOUT ESOPHAGITIS Status: Acute Current Visit: No (5) HLD (hyperlipidemia) SNOMED Code(s): 53375709 ICD Code: E78.5 - HYPERLIPIDEMIA, UNSPECIFIED Status: Acute Current Visit: No (6) HTN (hypertension) SNOMED Code(s): 91054186 ICD Code: I10 - ESSENTIAL (PRIMARY) HYPERTENSION Status: Acute Current Visit: No (7) Obesity SNOMED Code(s): 568173074, 843509934 ICD Code: E66.9 - OBESITY, UNSPECIFIED Status: Acute Current Visit: No (8) Sleep apnea SNOMED Code(s): 87196579 ICD Code: G47.30 - SLEEP APNEA, UNSPECIFIED Status: Acute Current Visit: No - Patient Summary/Data Hospital Course: Admission diagnoses New onset A. fib Left leg cellulitis Hypotension Discharge diagnoses New onset A. fib Left leg cellulitis improved Hypotension resolved Mickey was admitted secondary to nausea and vomiting found to be in new onset atrial fibrillation. He was started on metoprolol which controlled the rate. Blood pressure continued to be soft he was given IV fluids and other anti- hypertensives were held. Patient heart rate well controlled but with activity heart rate did elevate to 160s. Patient started on digoxin loading IV. Today patient blood pressure much improved heart rate continues to be 80s to 1 teens. Blood pressure was 127 systolically will give extra dose of metoprolol to equal 50 mg twice daily. He tolerated this well rate control better. He was also started on Eliquis 5 mg twice daily [id number] score of 2. Echo pending at discharge. CT angio of chest was obtained due to recent knee surgery PE negative. He was also noted to have mild superficial cellulitis to proximal and of the incision. He was started on Rocephin erythema and swelling have improved significantly patient's range of motion continues to be well with no pain. He will be continued on Keflex 500 3 times daily for another 2 days. He is to follow-up with Ortho and physical therapy as needed. He was counseled he should not be doing any extensive cardio workouts until heart rate and cardiology care established. He will be discharged home today. He will continue Eliquis 5 mg twice daily he will continue digoxin 125 daily. He will continue metoprolol 50 mg twice daily. He is to hold off on the toes as he reports his was making him nauseated. He is to continue Lantus at bedtime and Metformin. He is to follow- up with PCP in 1 week echo results will be sent to cardiology as well as PCP. He was encouraged to monitor his blood pressure and heart rate at home. Seek medical care if his heart rate maintains over 140 for more than 15 to 20 minutes. He is to return to the ER clinic if concerns should arise sooner. - Patient Instructions Diet: Heart Healthy Diet, Diabetic Diet Activity: No Strenuous Activities Driving: May Drive Today Showering/Bathing: May Shower Notify Provider of: Fever, Increased Pain, Swelling and Redness, Drainage, Nausea and/or Vomiting Other/Special Instructions: Monitor blood pressure at home. Monitor heart rate at home. Seek medical attention if heart rate maintains above 140s so 15-20 minutes. No cardio workouts, until heart rate better controlled and evaluated by cardiology - Discharge Plan *PRESCRIPTION DRUG MONITORING PROGRAM REVIEWED*: Not Applicable *COPY OF PRESCRIPTION DRUG MONITORING REPORT IN PATIENT SOO: Not Applicable Prescriptions/Med Rec: Apixaban [Eliquis] 5 mg PO BID #60 tablet cephALEXin [Keflex] 500 mg PO Q8H #6 cap Digoxin [Lanoxin] 125 mcg PO DAILY #30 tablet Metoprolol Tartrate [Lopressor] 50 mg PO BID #120 tablet Home Medications: Home Meds Lansoprazole 15 mg PO QAM 03/03/20 [History] Pravastatin Sodium 80 mg PO BEDTIME 03/03/20 [History] metFORMIN HCl [Metformin HCl] 1,000 mg PO BID 03/03/20 [History] Insulin Glargine,Hum.Rec.Anlog [Lantus Solostar] 10 unit SQ DAILY 04/25/20 [History] Zolpidem [Ambien] 5 mg PO BEDTIME PRN 05/02/20 [History] phenoL [Chloraseptic Throat [place]] 1 spray MUCMEM Q2H PRN #1 bottle 05/04/20 [Rx] Apixaban [Eliquis] 5 mg PO BID #60 tablet 07/22/20 [Rx] Digoxin [Lanoxin] 125 mcg PO DAILY #30 tablet 07/22/20 [Rx] Metoprolol Tartrate [Lopressor] 50 mg PO BID #120 tablet 07/22/20 [Rx] cephALEXin [Keflex] 500 mg PO Q8H #6 cap 07/22/20 [Rx] Oxygen Therapy Mode: Room Air Patient Handouts: Metoprolol tablets, Cephalexin Tablets or Capsules, Digoxin tablets or capsules, Apixaban oral tablets, Atrial Fibrillation, [id number] Referrals: Carole Hillman MD [Physician] - 09/11/20 1:00 pm Usha Chaparro PA [Primary Care Provider] - 07/29/20 9:00 am - Discharge Summary/Plan Comment DC Time >30 min.: No - Patient Data Vitals - Most Recent: Last Vital Signs Temp 97.3 F 07/22/20 08:00 Pulse 102 H 07/22/20 08:27 Resp 16 07/22/20 08:00 BP 127/76 07/22/20 08:27 Pulse Ox 96 07/22/20 08:00 Weight - Most Recent: 111.584 kg I&O - Last 24 hours: Intake & Output 07/21/20 07/22/20 07/22/20 22:59 06:59 14:59 Intake Total 1606 1600 Output Total 1850 1300 Balance -244 300 Lab Results - Last 24 hrs: Laboratory Results - last 24 hr 07/21/20 07/21/20 07/21/20 Range/Units 05:33 12:02 16:37 WBC (4.0-11.0) K/uL RBC (4.50-5.90) M/uL Hgb (13.0-17.0) g/dL Hct (38.0-50.0) % MCV (80.0-98.0) fL MCH (27.0-32.0) pg MCHC (31.0-37.0) g/dL RDW Std Deviation (28.0-62.0) fl RDW Coeff of Len (11.0-15.0) % Plt Count (150-400) K/uL MPV (7.40-12.00) fL Neut % (Auto) (48.0-80.0) % Lymph % (Auto) (16.0-40.0) % [place] % (Auto) (0.0-15.0) % Eos % (Auto) (0.0-7.0) % Baso % (Auto) (0.0-1.5) % Neut # (Auto) (1.4-5.7) K/uL Lymph # (Auto) (0.6-2.4) K/uL [place] # (Auto) (0.0-0.8) K/uL Eos # (Auto) (0.0-0.7) K/uL Baso # (Auto) (0.0-0.1) K/uL Nucleated RBC % /100WBC Nucleated RBCs # K/uL Sodium (136-148) mmol/L Potassium (3.5-5.1) mmol/L Chloride (98-107) mmol/L Carbon Dioxide (21.0-32.0) mmol/L BUN (7.0-18.0) mg/dL Creatinine (0.8-1.3) mg/dL Est Cr Clr Drug Dosing mL/min Estimated GFR (MDRD) ml/min Glucose (74-106) mg/dL POC Glucose 114 H 106 H (70-99) mg/dL Calcium (8.5-10.1) mg/dL Magnesium (1.8-2.4) mg/dL Troponin I < 0.050 (0.000-0.056) ng/mL 07/22/20 07/22/20 07/22/20 Range/Units 05:32 05:32 06:05 WBC 9.54 (4.0-11.0) K/uL RBC 4.38 L (4.50-5.90) M/uL Hgb 13.7 (13.0-17.0) g/dL Hct 40.7 (38.0-50.0) % MCV 92.9 (80.0-98.0) fL MCH 31.3 (27.0-32.0) pg MCHC 33.7 (31.0-37.0) g/dL RDW Std Deviation 48.1 (28.0-62.0) fl RDW Coeff of Len 14 (11.0-15.0) % Plt Count 287 (150-400) K/uL MPV 10.70 (7.40-12.00) fL Neut % (Auto) 57.6 (48.0-80.0) % Lymph % (Auto) 30.5 (16.0-40.0) % [place] % (Auto) 8.0 (0.0-15.0) % Eos % (Auto) 3.4 (0.0-7.0) % Baso % (Auto) 0.5 (0.0-1.5) % Neut # (Auto) 5.5 (1.4-5.7) K/uL Lymph # (Auto) 2.9 H (0.6-2.4) K/uL [place] # (Auto) 0.8 (0.0-0.8) K/uL Eos # (Auto) 0.3 (0.0-0.7) K/uL Baso # (Auto) 0.1 (0.0-0.1) K/uL Nucleated RBC % 0.0 /100WBC Nucleated RBCs # 0 K/uL Sodium 137 (136-148) mmol/L Potassium 3.9 (3.5-5.1) mmol/L Chloride 103 (98-107) mmol/L Carbon Dioxide 26.2 (21.0-32.0) mmol/L BUN 12 (7.0-18.0) mg/dL Creatinine 1.0 (0.8-1.3) mg/dL Est Cr Clr Drug Dosing 76.02 mL/min Estimated GFR (MDRD) > 60.0 ml/min Glucose 120 H (74-106) mg/dL POC Glucose 120 H (70-99) mg/dL Calcium 8.6 (8.5-10.1) mg/dL Magnesium 1.7 L (1.8-2.4) mg/dL Troponin I (0.000-0.056) ng/mL ENIO Results - Last 24 hrs: Microbiology 07/19/20 15:05 Aerobic Blood Culture - Preliminary Blood - Venous - Lab Draw NO GROWTH AFTER 2 DAYS Anaerobic Blood Culture - Preliminary NO GROWTH AFTER 2 DAYS 07/19/20 14:53 Aerobic Blood Culture - Preliminary Blood - Venous NO GROWTH AFTER 2 DAYS Anaerobic Blood Culture - Preliminary NO GROWTH AFTER 2 DAYS Med Orders - Current: Current Medications Apixaban (Apixaban 5 Mg Tab) 5 mg PO BID [facility] Last Admin: 07/22/20 08:27 Dose: 5 mg Documented by: Dextrose/Water (50% Dextrose In Water 50 Ml Syringe) 50 ml IVPUSH ASDIRECTED PRN PRN Reason: Hypoglycemia Glucagon (Glucagon,Human Recombinant 1 Mg Vial) 1 mg IM ASDIRECTED PRN PRN Reason: Hypoglycemia Ceftriaxone Sodium/Dextrose 1 (gm/ Premix) 50 mls @ 100 mls/hr IV Q24H [facility] Last Admin: 07/21/20 23:50 Dose: 100 mls/hr Documented by: Magnesium Sulfate 2 gm/ Premix 50 mls @ 12.5 mls/hr IV ONETIME ONE Stop: 07/22/20 11:59 Last Admin: 07/22/20 08:28 Dose: 12.5 mls/hr Documented by: Insulin Aspart (Insulin Aspart 100 Units/Ml 3 Ml Pen) 0 unit SUBCUT TIDAC [facility]; Protocol Last Admin: 07/22/20 07:30 Dose: Not Given Documented by: Insulin Glargine (Insulin Glargine,Human Rec. Analog 100 Units/Ml 3 Ml Pen) 10 units SUBCUT DAILY [facility] Last Admin: 07/22/20 08:36 Dose: 10 units Documented by: Melatonin (Melatonin 3 Mg Tab) 3 mg PO BEDTIME [facility] Last Admin: 07/21/20 21:05 Dose: 3 mg Documented by: Metoprolol Tartrate (Metoprolol Tartrate 25 Mg Tab) 25 mg PO BID [facility] Last Admin: 07/22/20 08:27 Dose: 25 mg Documented by: Pravastatin Sodium (Pravastatin 40 Mg Tab) 80 mg PO BEDTIME [facility] Last Admin: 07/21/20 21:05 Dose: 80 mg Documented by: Sodium Chloride (Sodium Chloride 0.9% 10 Ml Syringe) 10 ml FLUSH ASDIRECTED PRN PRN Reason: Keep Vein Open Last Admin: 07/19/20 15:21 Dose: 10 ml Documented by: Sodium Chloride (Sodium Chloride 0.9% 2.5 Ml Syringe) 2.5 ml FLUSH ASDIRECTED PRN PRN Reason: Keep Vein Open Last Admin: 07/19/20 15:21 Dose: 2.5 ml Documented by: Discontinued Medications Dextrose/Water (50% Dextrose In Water 50 Ml Syringe) 50 ml IV ASDIRECTED PRN PRN Reason: Hypoglycemia Digoxin (Digoxin 500 Mcg/2 Ml Amp) 250 mcg IVPUSH ONETIME ONE Stop: 07/21/20 15:10 Last Admin: 07/21/20 16:52 Dose: 250 mcg Documented by: Digoxin (Digoxin 500 Mcg/2 Ml Amp) 125 mcg IVPUSH Q6H [facility] Stop: 07/22/20 03:31 Last Admin: 07/22/20 03:37 Dose: 125 mcg Documented by: Digoxin (Digoxin 500 Mcg/2 Ml Amp) 125 mcg IVPUSH ONETIME ONE Stop: 07/22/20 08:01 Last Admin: 07/22/20 08:18 Dose: 125 mcg Documented by: Glucagon (Glucagon,Human Recombinant 1 Mg Vial) 1 mg IM ASDIRECTED PRN PRN Reason: Hypoglycemia Sodium Chloride (Normal Saline) 1,000 mls @ 999 mls/hr IV STAT STA Stop: 07/19/20 15:58 Last Admin: 07/19/20 14:59 Dose: 999 mls/hr Documented by: Piperacillin Sod/Tazobactam (Sod 4.5 gm/ Sodium Chloride) 100 mls @ 100 mls/hr IV ONETIME ONE Stop: 07/19/20 16:19 Last Admin: 07/19/20 15:48 Dose: 100 mls/hr Documented by: Sodium Chloride (Normal Saline) 1,000 mls @ 1,000 mls/hr IV .Bolus ONE Stop: 07/19/20 16:20 Last Admin: 07/19/20 15:24 Dose: 1,000 mls/hr Documented by: Sodium Chloride (Normal Saline) 1,000 mls @ 9,999 mls/hr IV STAT STA Stop: 07/19/20 16:38 Last Infusion: 07/19/20 16:34 Dose: 999 mls/hr Documented by: Ceftriaxone Sodium 1 gm/ (Sodium Chloride) 50 mls @ 100 mls/hr IV Q24H [facility] Last Admin: 07/19/20 23:02 Dose: Not Given Documented by: Ceftriaxone Sodium/Dextrose (Rocephin In Dextrose,Iso-Osm 1 Gm/50 Ml) 50 mls @ 100 mls/hr IV Q24H [facility] Last Admin: 07/19/20 23:11 Dose: 100 mls/hr Documented by: Magnesium Sulfate (Magnesium Sulfate In Water 2 Gm/50 Ml) 2 gm in 50 mls @ 50 mls/hr IV ONETIME ONE Stop: 07/20/20 11:59 Last Admin: 07/20/20 11:37 Dose: 50 mls/hr Documented by: Magnesium Sulfate 2 gm/ Premix 50 mls @ 12.5 mls/hr IV ONETIME ONE Stop: 07/21/20 11:51 Last Admin: 07/21/20 09:16 Dose: 12.5 mls/hr Documented by: Sodium Chloride (Normal Saline) 1,000 mls @ 125 mls/hr IV ONETIME ONE Stop: 07/21/20 20:57 Last Admin: 07/21/20 13:31 Dose: 125 mls/hr Documented by: Iopamidol (Iopamidol 755 Mg/Ml 500 Ml Multipack Bottle) 75 ml IVPUSH ONETIME STA Stop: 07/21/20 13:05 Last Admin: 07/21/20 13:06 Dose: 75 ml Documented by: Metoprolol Tartrate (Metoprolol Tartrate 25 Mg Tab) 25 mg PO ONETIME ONE Stop: 07/20/20 08:16 Last Admin: 07/20/20 08:17 Dose: 25 mg Documented by: Metoprolol Tartrate (Metoprolol Tartrate 25 Mg Tab) 25 mg PO ONETIME ONE Stop: 07/20/20 11:01 Last Admin: 07/20/20 11:36 Dose: Not Given Documented by: Metoprolol Tartrate (Metoprolol Tartrate 50 Mg Tab) 50 mg PO Q12H [facility] Last Admin: 07/20/20 19:32 Dose: Not Given Documented by: Metoprolol Tartrate (Metoprolol Tartrate 50 Mg Tab) 50 mg PO BID [facility] Last Admin: 07/20/20 22:23 Dose: 25 mg Documented by: Metoprolol Tartrate (Metoprolol Tartrate 25 Mg Tab) 25 mg PO ONETIME ONE Stop: 07/22/20 10:02 Potassium Chloride (Potassium Chloride 20 Meq Tab.Er) 20 meq PO ONETIME ONE Stop: 07/22/20 08:01 Last Admin: 07/22/20 08:27 Dose: 20 meq Documented by:
--- NOTE | 2020-07-24 12:01 | ECHO ---
EXAM DATE: 07/19/20 PATIENT'S AGE: 50 The ECHO report has been scanned into [employer] and can be seen in this patient's EMR (Electronic Medical Record) under the REPORTS section. The report has also been scanned into PACS. MAIKEL
== END 2020-07-22 13:15 | disposition home or self-care (01) ==
LOC: MW.ED 14:27 → MW.MS 17:33
PROVIDERS: ADMIT Internal Medicine; ATTEND Internal Medicine
DX: I95.9 Hypotension, unspecified (principal); N17.9 Acute kidney failure, unspecified; I48.91 Unspecified atrial fibrillation; L03.116 Cellulitis of left lower limb; I10 Essential (primary) hypertension; E78.00 Pure hypercholesterolemia, unspecified; E11.9 Type 2 diabetes mellitus without complications; E66.9 Obesity, unspecified; G47.33 Obstructive sleep apnea (adult) (pediatric); K21.9 Gastro-esophageal reflux disease without esophagitis; Z79.899 Other long term (current) drug therapy; Z79.4 Long term (current) use of insulin; Z90.89 Acquired absence of other organs; Z98.890 Other specified postprocedural states; Z20.822 Contact with and (suspected) exposure to COVID-19
CPT/HCPCS: 36415; 71045; 71275; 80048; 80053; 81003; 82947; 83605; 83735; 84484; 85025; 87040; 87635; 93005; 93306; 96365; 96366; 96367; 96375; 96376; 99285; A9270; G0378; J0696; J1160; J1815; J2543; J3475; J7030; Q9967; 93010; 99284; U0002

== ENCOUNTER 2021-01-25 20:57 | Emergency (ER) | payer MEDICAID ==
--- NOTE | 2021-01-25 21:19 | EDM.PDOC ---
ED HPI GENERAL MEDICAL PROBLEM - General Chief Complaint: General Stated Complaint: BODY ACHES, FEVER Time Seen by Provider: 01/25/21 20:58 - History of Present Illness INITIAL COMMENTS - FREE TEXT/NARRATIVE: History of present illness: [] Patient reports body aches and fevers. He has been vaccinated for COVID-19. He did however have exposure on the when he was with a family member who subsequently been diagnosed with COVID-19. The family member was symptomatic at their Thanksgiving dinner. Now the patient has 2 days of fever chills body aches. He has sinus congestion and watery eyes. He does not have any signif icant coughing or phlegm. Generally he feels sick. He is concerned he might have Covid. 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 Review of systems: As per history of present illness and below otherwise all systems reviewed and negative. Past medical history: As per history of present illness and as reviewed below otherwise noncontributory. Surgical history: As per history of present illness and as reviewed below otherwise noncontributory. Social history: No reported history of drug or alcohol abuse. Family history: As per history of present illness and as reviewed below otherwise noncontributory. Physical exam: Constitutional - well developed, well-nourished and in no acute distress HEENT -tender frontal and maxillary sinuses normocephalic, no evidence of trauma - external nose and mouth normal - no mass in neck and no JVD - mucosae moist EYES - full EOM, PERRL, no icterus - no evidence of inflammation, injection, or drainage Respiratory - no respiratory distress, equal bilateral expansion, lungs clear to auscultation and no abnormal lung sounds Cardiovascular - Regular Rhythm with S1 and S2 appreciated and no murmur, gallop or rub. GI - abdomen soft without distension or organomegaly - normal bowel sounds - no guard or rebound Musculoskeletal no gross deformity of long bones or joints - no tenderness, swelling or edema Neurologic - Alert and oriented times four - CN II-XII grossly intact - motor sensory and coordination symmetrically normal Psychiatric - appropriate mood and affect with normal thought content Hematologic - No petechiae or purpura - mucosa appropriate color and sclera not pale - normal nail bed color and refill Integument -slightly diaphoretic no rash or evidence of trauma - normal turgor Diagnostics: [] Therapeutics: [] Impression: [] Plan: [] Definitive disposition and diagnosis as appropriate pending reevaluation and review of above. back Pain Score (Numeric/FACES): 6 - Related Data Allergies Allergy/AdvReac Type Severity Reaction Status Date / Time No Known Allergies Allergy Verified 01/25/21 21:28 Home Meds: Home Meds Lansoprazole 15 mg PO QAM 03/03/20 [History] Pravastatin Sodium 80 mg PO BEDTIME 03/03/20 [History] metFORMIN HCl [Metformin HCl] 1,000 mg PO BID 03/03/20 [History] Insulin Glargine,Hum.Rec.Anlog [Lantus Solostar] 10 unit SQ DAILY 04/25/20 [History] Zolpidem [Ambien] 5 mg PO BEDTIME PRN 05/02/20 [History] phenoL [Chloraseptic Throat [place]] 1 spray MUCMEM Q2H PRN #1 bottle 05/04/20 [Rx] Apixaban [Eliquis] 5 mg PO BID #60 tablet 07/22/20 [Rx] Digoxin [Lanoxin] 125 mcg PO DAILY #30 tablet 07/22/20 [Rx] Metoprolol Tartrate [Lopressor] 50 mg PO BID #120 tablet 07/22/20 [Rx] cephALEXin [Keflex] 500 mg PO Q8H #6 cap 07/22/20 [Rx] Past Medical History HEENT History: Reports: Other (See Below) Other HEENT History: wears glasses Cardiovascular History: Reports: High Cholesterol, Hypertension Respiratory History: Reports: Sleep Apnea Other Respiratory History: uses CPAP Gastrointestinal History: Reports: GERD Genitourinary History: Reports: None Musculoskeletal History: Reports: Fracture, Osteoarthritis Other Musculoskeletal History: hx fx arm Neurological History: Reports: None Psychiatric History: Reports: None Endocrine/Metabolic History: Reports: Diabetes, Type II, IDDM, Obesity/BMI 30+ Hematologic History: Reports: None Immunologic History: Reports: None Oncologic (Cancer) History: Reports: None Dermatologic History: Reports: None - Infectious Disease History Infectious Disease History: Reports: Chicken Pox - Past Surgical History Head Surgeries/Procedures: Reports: None HEENT Surgical History: Reports: Tonsillectomy Cardiovascular Surgical History: Reports: None Respiratory Surgical History: Reports: None GI Surgical History: Reports: Hernia, Abdominal Other GI Surgeries/Procedures: Umbilical hernia repair Male Surgical History: Reports: None Endocrine Surgical History: Reports: None Neurological Surgical History: Reports: None Musculoskeletal Surgical History: Reports: Knee Replacement, Other (See Below) Other Musculoskeletal Surgeries/Procedures:: hx left knee arthroplasty 04/19, left knee manipulation & tendon repair right leg Oncologic Surgical History: Reports: None Dermatological Surgical History: Reports: None Social & Family History - Family History Family Medical History: No Pertinent Family History - Caffeine Use Caffeine Use: Reports: None ED ROS GENERAL - Review of Systems Review Of Systems: Comprehensive ROS is negative, except as noted in HPI. ED EXAM, GENERAL - Physical Exam Exam: See Below Free Text/Narrative:: My physical exam is in the HPI Course - Vital Signs Last Recorded V/S: Last Vital Signs Temp 36.1 C 01/25/21 21:29 Pulse 107 H 01/25/21 21:29 Resp 18 01/25/21 21:29 BP 145/106 H 01/25/21 21:29 Pulse Ox 93 L 01/25/21 21:29 - Orders/Labs/Meds Labs: Laboratory Tests 01/25/21 Range/Units 21:12 Influenza Type A RNA NEGATIVE (NEGATIVE) Influenza Type B RNA NEGATIVE (NEGATIVE) SARS-CoV-2 RNA ([place]) POSITIVE H (NEGATIVE) Departure - Departure Time of Disposition: 22:01 Disposition: Home, Self-Care 01 Condition: Good Clinical Impression: COVID-19 virus infection - Discharge Information Instructions: COVID-19: What to Do If You Are Sick- [facility] (05/14/2020), COVID-19: Quarantine vs. Isolation - [facility] (02/14/2020) Referrals: Usha Chaparro PA [Primary Care Provider] - Forms: ED Department Discharge Additional Instructions: [facility] - Primary Care [address] [place] [id number] [id number] The following information is given to patients seen in the emergency department who are being discharged to home. This information is to outline your options for follow-up care. We provide all patients seen in our emergency department with a follow-up referral. The need for follow-up, as well as the timing and circumstances, are variable depending upon the specifics of your emergency department visit. If you don't have a primary care physician on staff, we will provide you with a referral. We always advise you to contact your personal physician following an emergency department visit to inform them of the circumstance of the visit and for follow-up with them and/or the need for any referrals to a consulting specialist. The emergency department will also refer you to a specialist when appropriate. This referral assures that you have the opportunity for follow-up care with a specialist. All of these measure are taken in an effort to provide you with optimal care, which includes your follow-up. Under all circumstances we always encourage you to contact your private physician who remains a resource for coordinating your care. When calling for follow-up care, please make the office aware that this follow-up is from your recent emergency room visit. If for any reason you are refused follow-up, please contact the [facility] Emergency Department at and asked to speak to the emergency department charge nurse. Sepsis Event Note (ED) - Focused Exam Vital Signs: Vital Signs Temp Pulse Resp BP Pulse Ox 01/25/21 21:29 36.1 C 107 H 18 145/106 H 93 L
[2021-01-25 21:54] LABS: CORONAVIRUS COVID-19 NAA POSITIVE (NEGATIVE); INFLUENZA A NAA NEGATIVE (NEGATIVE); INFLUENZA B NAA NEGATIVE (NEGATIVE)
== END 2021-01-25 22:18 | disposition home or self-care (01) ==
LOC: MW.ED 20:57
DX: U07.1 COVID-19 (principal); E78.00 Pure hypercholesterolemia, unspecified; I10 Essential (primary) hypertension; K21.9 Gastro-esophageal reflux disease without esophagitis; M19.90 Unspecified osteoarthritis, unspecified site; I48.91 Unspecified atrial fibrillation; E11.9 Type 2 diabetes mellitus without complications; E66.9 Obesity, unspecified; Z68.38 Body mass index [BMI] 38.0-38.9, adult; Z79.4 Long term (current) use of insulin; Z79.01 Long term (current) use of anticoagulants; Z79.899 Other long term (current) drug therapy
CPT/HCPCS: 0240U; 99283

== ENCOUNTER 2021-05-06 06:27 | Inpatient (IN) | payer MEDICAID ==
[~2021-05-06 06:27] MED LIST changes: +Albuterol 0.083% 2.5 MG/3 ML Neb Soln NEB PRN; +Famotidine 20 MG/2 ML SDV IVPUSH SCH; -Glycopyrrolate 0.2 MG/ML SDV ONE; +HYDROmorphone 1 MG/ML Syringe IVPUSH PRN; -Lidocaine 2% 5 ML SDV ONE; +Metoclopramide 10 MG/2 ML SDV IVPUSH PRN; -Midazolam 1 MG/ML 2 ML SDV ONE; +Morphine 2 MG/ML SYRINGE IVPUSH PRN; +Naloxone 0.4 MG/ML SDV IVPUSH PRN; +Ondansetron 4 MG/2 ML SDV IVPUSH PRN; -Propofol 200 MG/20 ML SDV ONE; +Ropivacaine 49.25 ML, Ketorolac 30 MG, EPINEPHrine 0.5 MG, cloNIDine 80 MCG in Sodium C... INJECT SCH; +Scopolamine 1.5 MG Transdermal Patch TRDERM SCH; +fentaNYL 100 MCG/2 ML SDV IVPUSH PRN
[2021-05-06] MEDS ORDERED: Ropivacaine 0.5% 5 MG/ML 30 ML SDV ONE (07:07)
[2021-05-06] MEDS ORDERED: Lidocaine 1% 50 ML MDV ONE (07:08)
[2021-05-06] MEDS ORDERED: propofoL 50 ML ONE (07:11)
[2021-05-06] MEDS ORDERED: fentaNYL 100 MCG/2 ML SDV ONE (07:18)
[2021-05-06] MEDS ORDERED: Midazolam 1 MG/ML 2 ML SDV ONE (07:18)
[2021-05-06] MEDS ORDERED: Dexmedetomidine 200 MCG/2 ML SDV ONE (07:18)
[2021-05-06] MEDS ORDERED: Lidocaine 1% 5 ML VIAL ONE (07:19)
[2021-05-06] MEDS ORDERED: Tranexamic Acid 1,000 MG in Sodium Chloride 0.9% 100 ML IV ONE (08:00)
[2021-05-06] MEDS ORDERED: Propofol 200 MG/20 ML SDV ONE ×3 (08:55→09:48)
[2021-05-06] MEDS ORDERED: Aluminum Hydroxide/Magnesium Hydroxide/Simethicone XS Susp 30 ML Cup PO PRN (10:32)
[2021-05-06] MEDS ORDERED: diphenhydrAMINE 25 MG Cap PO PRN (10:32)
[2021-05-06] MEDS ORDERED: Bisacodyl 10 MG Supp RECTAL PRN (10:32)
[2021-05-06] MEDS ORDERED: Ondansetron 4 MG/2 ML SDV IVPUSH PRN (10:32)
[2021-05-06] MEDS ORDERED: Sodium Chloride 0.9% 10 ML Syringe FLUSH PRN (10:32)
[2021-05-06] MEDS ORDERED: Sodium Chloride 0.9% 2.5 ML Syringe FLUSH PRN (10:32)
[2021-05-06] MEDS ORDERED: Glucagon,Human Recombinant 1 MG Vial IM PRN (11:45)
[2021-05-06] MEDS ORDERED: 50% Dextrose in Water 50 ML Syringe IVPUSH PRN (11:45)
[2021-05-06 12:57] LABS: BLOOD UREA NITROGEN,BUN 20 mg/dL (7.0-18.0); CARBON DIOXIDE,CO2 27.4 mmol/L (21.0-32.0); CHLORIDE,CL 104 mmol/L (98-107); GLUCOSE RANDOM 123 mg/dL (74-106); POTASSIUM,K 3.8 mmol/L (3.5-5.1); SODIUM,NA 141 mmol/L (136-148)
[2021-05-06] MEDS: oxyCODONE 5 MG Tab PO PRN ×3 (13:29→23:29)
[2021-05-06] MEDS: Morphine 2 MG/ML SYRINGE IVPUSH PRN ×2 (13:55→20:41)
[2021-05-06] MEDS ORDERED: Magnesium Sulfate/Water 4 GM in Premix Bag 1 BAG IV ONE (14:03)
[2021-05-06] MEDS ORDERED: Potassium Chloride 20 MEQ Tab.ER PO ONE (14:55)
[2021-05-06] MEDS: Acetaminophen 325 MG Tab PO PRN (15:10)
[2021-05-06] MEDS: ceFAZolin 2 GM in Premix Bag 1 BAG IV SCH ×3 (17:15→23:31)
[2021-05-06] MEDS: Insulin Aspart 100 Units/ML 3 ML Pen SUBCUT SCH (18:45)
[2021-05-06] MEDS: Celecoxib 100 MG Cap PO SCH ×2 (19:02→21:25)
[2021-05-06] MEDS: Docusate Sodium 100 MG Cap PO SCH (20:35)
[2021-05-06] MEDS: Metoprolol Tartrate 25 MG Tab PO SCH (20:38)
[2021-05-07] MEDS: ceFAZolin 2 GM in Premix Bag 1 BAG IV SCH (00:01)
[2021-05-07] MEDS: Morphine 2 MG/ML SYRINGE IVPUSH PRN ×2 (00:17→05:09)
[2021-05-07] MEDS: oxyCODONE 5 MG Tab PO PRN ×2 (06:02→10:49)
[2021-05-07 07:10] LABS: BLOOD UREA NITROGEN,BUN 19 mg/dL (7.0-18.0); CARBON DIOXIDE,CO2 23.9 mmol/L (21.0-32.0); CHLORIDE,CL 103 mmol/L (98-107); GLUCOSE RANDOM 111 mg/dL (74-106); POTASSIUM,K 4.2 mmol/L (3.5-5.1); SODIUM,NA 138 mmol/L (136-148)
[2021-05-07] MEDS: Insulin Aspart 100 Units/ML 3 ML Pen SUBCUT SCH ×2 (07:46→12:19)
[2021-05-07] MEDS ORDERED: Apixaban 5 MG Tab PO SCH (09:00)
[2021-05-07] MEDS ORDERED: Famotidine 20 MG Tab PO SCH (09:00)
[2021-05-07] MEDS ORDERED: Pravastatin 40 MG Tab PO SCH (09:00)
[2021-05-07] MEDS ORDERED: Insulin Glargine,Human Rec. Analog 100 Units/ML 3 ML Pen SUBCUT SCH (09:00)
[2021-05-07] MEDS ORDERED: Hydrochlorothiazide 25 MG Tab PO SCH (09:00)
[2021-05-07] MEDS ORDERED: Polyethylene Glycol 3350 Powder 17 GM Packet PO SCH (09:00)
[2021-05-07] MEDS: Metoprolol Tartrate 25 MG Tab PO SCH (09:19)
[2021-05-07] MEDS: Celecoxib 100 MG Cap PO SCH (09:22)
[2021-05-07] MEDS: Acetaminophen 325 MG Tab PO PRN (09:24)
[2021-05-07] MEDS: Docusate Sodium 100 MG Cap PO SCH (09:25)
== END 2021-05-07 14:20 | disposition home or self-care (01) | DRG 470 ==
LOC: MW.SDS 06:27 → MW.MS 11:26
PROVIDERS: ADMIT Orthopaedic Surgery; ATTEND Orthopaedic Surgery
PROC: 0SRC0J9 Replacement of Right Knee Joint with Synthetic Substitute, Cemented, Open Approach (ICD-10-PCS; principal; 2021-05-06)
DX: M17.11 Unilateral primary osteoarthritis, right knee (principal); Z90.89 Acquired absence of other organs; Z98.890 Other specified postprocedural states; F41.9 Anxiety disorder, unspecified; G47.00 Insomnia, unspecified; E78.5 Hyperlipidemia, unspecified; I10 Essential (primary) hypertension; I48.91 Unspecified atrial fibrillation; Z79.01 Long term (current) use of anticoagulants; G47.33 Obstructive sleep apnea (adult) (pediatric); Z99.81 Dependence on supplemental oxygen; E78.00 Pure hypercholesterolemia, unspecified; E66.9 Obesity, unspecified; Z87.891 Personal history of nicotine dependence
CPT/HCPCS: 36415; 73560-26-RT; 73560-RT; 80048; 82947; 83735; 85014; 85018; 85027; 86850; 86900; 86901; 97110-GP; A9270-GY; J0171; J0690; J0735; J1815-GY; J1885; J2001; J2250; J2270; J2704; J2795; J3010; J3475; J3490; J7120

== ENCOUNTER 2022-05-25 10:09 | Emergency (ER) | payer MEDICAID, MEDICARE ==
[2022-05-25] MEDS ORDERED: Sodium Chloride 0.9% 1,000 ML IV ONE (10:59)
[2022-05-25 11:10] LABS: CARBON DIOXIDE,CO2 27.6 mmol/L (21.0-32.0); POTASSIUM,K 3.5 mmol/L (3.5-5.1)
[2022-05-25] MEDS ORDERED: Iopamidol 755 MG/ML 500 ML Multipack Bottle IVPUSH STA (11:54)
[2022-05-25 12:09] LABS: CORONAVIRUS COVID-19 NAA NEGATIVE (NEGATIVE); INFLUENZA A NAA NEGATIVE (NEGATIVE); INFLUENZA B NAA NEGATIVE (NEGATIVE)
== END 2022-05-25 12:49 | disposition home or self-care (01) ==
LOC: MW.ED 10:09
DX: R51.9 Headache, unspecified (principal); I48.91 Unspecified atrial fibrillation; E11.9 Type 2 diabetes mellitus without complications; I10 Essential (primary) hypertension; E66.9 Obesity, unspecified; Z79.01 Long term (current) use of anticoagulants; Z79.4 Long term (current) use of insulin; Z79.899 Other long term (current) drug therapy; Z20.822 Contact with and (suspected) exposure to COVID-19; Z68.35 Body mass index [BMI] 35.0-35.9, adult
CPT/HCPCS: 0240U; 36415; 71045; 71275; 80053; 83880; 84484; 85025; 85379; 93005; 96360; 99284; J7030; Q9967; 93010

== ENCOUNTER 2023-02-24 16:48 | Emergency (ER) | payer MEDICAID, MEDICARE ==
[2023-02-24 17:35] LABS: BASOPHILS ABSOLUTE AUTO 0.03 K/uL (0.00-0.20); BASOPHILS PERCENT AUTO 0.3 % (0.0-1.0); EOSINOPHILS ABSOLUTE AUTO 0.08 K/uL (0.00-0.45); EOSINOPHILS PERCENT AUTO 0.7 % (0.0-6.0); HEMATOCRIT 55.5 % (42.0-52.0); IMMATURE GRAN ABSOLUTE AUTO 0.06 K/uL (0.00-0.05); IMMATURE GRAN PERCENT AUTO 0.5 % (0.0-0.4); LYMPHOCYTES ABSOLUTE AUTO 1.05 K/uL (1.00-4.80); LYMPHOCYTES PERCENT AUTO 8.9 % (24.0-44.0); MEAN CORPUSCULAR HEMOGLOBIN 29.2 pg (28.0-32.0); MEAN CORPUSCULAR HGB CONC 34.2 g/dL (32.0-36.0); MEAN CORPUSCULAR VOLUME 85.3 fL (83.0-99.0); MONOCYTES ABSOLUTE AUTO 1.05 K/uL (0.00-0.80); MONOCYTES PERCENT AUTO 8.9 % (0.0-8.0); NEUTROPHILS ABSOLUTE AUTO 9.51 K/uL (1.80-7.70); NEUTROPHILS PERCENT AUTO 80.7 % (41.0-71.0); PLATELET COUNT,PLT 249 K/uL (150-400); RED BLOOD CELL COUNT 6.51 M/uL (4.52-5.90); WHITE BLOOD CELL COUNT,WBC 11.78 K/uL (3.9-11.3)
[2023-02-24 17:35] LABS: APPEARANCE,URINE CLEAR; BILIRUBIN,URINE NEGATIVE (NEGATIVE); COLOR,URINE YELLOW; GLUCOSE,URINE NEGATIVE (NEGATIVE); KETONES,URINE NEGATIVE (NEGATIVE); LEUKOCYTE ESTERASE,URINE NEGATIVE (NEGATIVE); NITRITE,URINE NEGATIVE (NEGATIVE); OCCULT BLOOD,URINE NEGATIVE (NEGATIVE); PH,URINE 6.5 (5.0-8.0); PROTEIN,URINE TRACE mg/dL (NEGATIVE)
[2023-02-24 17:54] LABS: BACTERIA,URINE RARE (NEGATIVE); EPITHELIAL CELLS,URINE OCCASIONAL (NONE-FEW); RBC,URINE 0-1 (0-2/HPF); WBC,URINE 0-1 (0-5/HPF)
[2023-02-24] MEDS: Alum Hydro/Mag Hydro/Simeth XS 15 ML, Metoclopramide 5 MG, Lidocaine 2% 5 ML PO ONE ×3 (17:57)
[2023-02-24] MEDS: Sodium Chloride 0.9% 1,000 ML IV ONE (17:57)
[2023-02-24] MEDS: Ketorolac 30 MG/ML SDV IVPUSH ONE (17:57)
[2023-02-24] MEDS: Ondansetron 4 MG/2 ML SDV IVPUSH ONE (17:58)
[2023-02-24 18:03] LABS: ALBUMIN 3.5 g/dL (3.4-5.0); CALCIUM 8.2 mg/dL (8.5-10.1); CARBON DIOXIDE,CO2 27.4 mmol/L (21.0-32.0); CREATININE 1.3 mg/dL (0.8-1.3); EST CRCL DRUG DOSING (CG) 60.73 mL/min; POTASSIUM,K 3.9 mmol/L (3.5-5.1); PROTEIN TOTAL,TP 7.2 g/dL (6.4-8.2)
[2023-02-24 18:04] LABS: A/G RATIO 0.9 (0.9-1.6); BILIRUBIN TOTAL 0.4 mg/dL (0.2-1.0)
[2023-02-24 18:13] LABS: CORONAVIRUS COVID-19 NAA NEGATIVE (NEGATIVE); INFLUENZA A NAA NEGATIVE (NEGATIVE); INFLUENZA B NAA NEGATIVE (NEGATIVE); RESPIRATORY SYNCYTIAL VIR NAA NEGATIVE (NEGATIVE)
[2023-02-24] MEDS: Loperamide 2 MG Cap PO ONE (19:00)
== END 2023-02-24 19:03 | disposition home or self-care (01) ==
LOC: MW.ED 16:48
DX: K52.9 Noninfective gastroenteritis and colitis, unspecified (principal); I10 Essential (primary) hypertension; E11.9 Type 2 diabetes mellitus without complications; K21.9 Gastro-esophageal reflux disease without esophagitis; Z79.84 Long term (current) use of oral hypoglycemic drugs; Z20.822 Contact with and (suspected) exposure to COVID-19; Z79.01 Long term (current) use of anticoagulants; Z79.899 Other long term (current) drug therapy
CPT/HCPCS: 0241U; 36415; 80053; 81001; 83690; 84484; 85025; 93005; 93010; 96361; 96374; 96375; 99284; 99284-25; A9270-GY; J1885; J2405; J7030

== ENCOUNTER 2025-01-12 13:57 | Emergency (ER) | payer MEDICARE ==
[2025-01-12] MEDS: Orphenadrine 60 MG/2 ML Inj IV ONE (16:42)
== END 2025-01-12 17:13 | disposition home or self-care (01) ==
LOC: MW.ED 13:57
DX: S61.411A Laceration without foreign body of right hand, initial encounter (principal); S40.021A Contusion of right upper arm, initial encounter; S80.01XA Contusion of right knee, initial encounter; S70.01XA Contusion of right hip, initial encounter; I10 Essential (primary) hypertension; E11.9 Type 2 diabetes mellitus without complications; E66.9 Obesity, unspecified; Z68.35 Body mass index [BMI] 35.0-35.9, adult; Z79.01 Long term (current) use of anticoagulants; Z79.84 Long term (current) use of oral hypoglycemic drugs; Z79.899 Other long term (current) drug therapy; V86.99XA Unspecified occupant of other special all-terrain or other off-road motor vehicle injured in nontraffic accident, initial encounter
CPT/HCPCS: 12002; 70450; 72125; 73080; 73090; 73110; 73130; 73501; 73562; 96374; 99285; J2360; 99284